=== PATIENT | female | born 1985 | race Caucasian/White ===

== ENCOUNTER 2021-09-25 01:29 | Inpatient (IN) | payer MEDICAID, OTHER ==
[~2021-09-25] VITALS: Ht 162.6 cm; Wt 72.3 kg
[2021-09-25 01:55] LABS: HEMATOCRIT 37.6 % (36.0-47.0); HEMOGLOBIN 13.3 g/dl (12.0-15.5); MEAN CORPUSCULAR HGB CONC 35.4 g/dl (32.0-36.5); MEAN CORPUSCULAR VOLUME 84.9 fl (80.0-96.0); PLATELET COUNT, AUTOMATED 378 10^3/uL (150-450); RED BLOOD COUNT 4.43 10^6/uL (4.00-5.40); WHITE BLOOD COUNT 9.7 10^3/uL (4.0-10.0)
[2021-09-25 02:25] LABS: HCG, SERUM QUALITATIVE NEGATIVE (NEGATIVE)
[2021-09-25 02:28] LABS: AMPHETAMINES LEVEL URINE NEGATIVE (NEGATIVE); BARBITURATES URINE NEGATIVE (NEGATIVE); BENZODIAZEPINES URINE POSITIVE (NEGATIVE); CANNABINOIDS URINE POSITIVE (NEGATIVE); COCAINE METABOLITE URINE NEGATIVE (NEGATIVE); METHADONE URINE NEGATIVE (NEGATIVE); OPIATES URINE NEGATIVE (NEGATIVE); PHENCYCLIDINE URINE NEGATIVE (NEGATIVE)
[2021-09-25 02:33] LABS: ALBUMIN 4.2 GM/DL (3.2-5.2); ALT/SGPT 24 U/L (12-78); BILIRUBIN,DIRECT < 0.1 MG/DL (0.0-0.2); BILIRUBIN,TOTAL 0.2 MG/DL (0.2-1.0); BLOOD UREA NITROGEN 13 MG/DL (7-18); CALCIUM LEVEL 9.2 MG/DL (8.5-10.1); CARBON DIOXIDE LEVEL 22 MEQ/L (21-32); CHLORIDE LEVEL 108 MEQ/L (98-107); CREATININE FOR GFR 0.94 MG/DL (0.55-1.30); ETHYL ALCOHOL (ETHANOL) 0.063 % (0.000-0.010); GLOMERULAR FILTRATION RATE > 60.0 (>60); GLUCOSE, FASTING 83 MG/DL (70-100); POTASSIUM SERUM 3.7 MEQ/L (3.5-5.1); SALICYLATE LEVEL 6.1 MG/DL (5.0-30.0); SODIUM LEVEL 140 MEQ/L (136-145); TOTAL PROTEIN 8.1 GM/DL (6.4-8.2)
[2021-09-25 02:41] LABS: RSV AMPLIFICATION NEGATIVE (NEGATIVE)
[2021-09-25] MEDS ORDERED: ALPRAZolam 0.5 MG TAB PO ONE (04:10)
[2021-09-25] MEDS ORDERED: traZODone 50 MG TAB PO ONE (04:15)
[2021-09-25] MEDS ORDERED: GABA800T4 PO (06:25)
[2021-09-25] MEDS ORDERED: TRAZ-252 PO (06:25)
[2021-09-25] MEDS ORDERED: PRAZ2CAP PO (06:25)
[2021-09-25] MEDS ORDERED: CETI-24 PO (06:25)
[2021-09-25] MEDS ORDERED: ZOLO100T PO (06:25)
[2021-09-25] MEDS ORDERED: IBUP1TAB7 PO (06:25)
[2021-09-25] MEDS ORDERED: ATOR1TAB19 PO (06:25)
[2021-09-25] MEDS ORDERED: XANA0.5T PO (06:25)
[2021-09-25] MEDS ORDERED: TIZA10TA PO (06:25)
[2021-09-25] MEDS ORDERED: PANT-23 PO (06:25)
[2021-09-25] MEDS ORDERED: HOME MED LIST COMPLETE! XX SCH (06:30)
[2021-09-25 06:50] LABS: ACETAMINOPHEN LEVEL < 2.0 UG/ML (0.0-30.0)
[2021-09-25] MEDS: NICOTINE 21MG/24HR 1 EA TRANSDERMAL TD SCH (09:00)
[2021-09-25] MEDS: SERTRALINE 100 MG TAB PO SCH (09:00)
[2021-09-25] MEDS: FOLIC ACID 1 MG TAB PO SCH (09:00)
[2021-09-25] MEDS: MULTIVITAMINS/MINERALS THERAP 1 TAB PO SCH (09:00)
[2021-09-25] MEDS ORDERED: LORazepam 2 MG TAB PO PRN (14:35)
[2021-09-25] MEDS ORDERED: traZODone 50 MG TAB PO PRN ×2 (14:35)
[2021-09-25] MEDS ORDERED: MAALOX 30 ML SUSP *UDC PO PRN (14:35)
[2021-09-25] MEDS: GABAPENTIN 400MG CAP PO SCH ×2 (16:00→21:47)
[2021-09-25] MEDS: IBUPROFEN 400MG TAB PO PRN ×2 (16:55→17:00)
[2021-09-25] MEDS ORDERED: PANTOPRAZOLE 40MG TAB (PROTONIX) PO SCH (18:30)
[2021-09-25] MEDS: ATORVASTATIN 10 MG TAB PO SCH (21:47)
[2021-09-25] MEDS: CETIRIZINE (ZyrTEC) 10 MG TAB PO SCH (21:47)
[2021-09-25] MEDS: THIAMINE 100 MG TAB PO SCH (21:50)
[2021-09-25] MEDS: PRAZOSIN 1 MG CAP PO SCH (21:50)
[2021-09-26 01:04] VITALS: BP 140/77
[2021-09-26] MEDS: PANTOPRAZOLE 40MG TAB (PROTONIX) PO SCH ×2 (07:04→17:12)
[2021-09-26] MEDS: THIAMINE 100 MG TAB PO SCH ×2 (07:56→20:12)
[2021-09-26] MEDS: SERTRALINE 100 MG TAB PO SCH (07:56)
[2021-09-26] MEDS: MULTIVITAMINS/MINERALS THERAP 1 TAB PO SCH (07:56)
[2021-09-26] MEDS: NICOTINE 21MG/24HR 1 EA TRANSDERMAL TD SCH (07:56)
[2021-09-26] MEDS: tiZANidine 4 MG TAB PO PRN ×4 (07:57→21:43)
[2021-09-26] MEDS: GABAPENTIN 400MG CAP PO SCH ×3 (07:57→20:12)
[2021-09-26] MEDS: FOLIC ACID 1 MG TAB PO SCH (07:57)
[2021-09-26] MEDS: OLANZapine ORAL DISINTEGRATING TAB 5MG PO PRN ×4 (08:37→17:12)
[2021-09-26 08:57] VITALS: BP 108/70
[2021-09-26] MEDS: clonazePAM 0.5 MG TAB PO SCH ×2 (11:38→20:11)
[2021-09-26 17:00] VITALS: BP 132/65
[2021-09-26 18:06] VITALS: BP 132/65
[2021-09-26 19:37] LABS: GC DNA AMPLIFICATION NEGATIVE (NEGATIVE)
[2021-09-26] MEDS: FLUTICASONE PROP 0.05% NASAL SPRAY 16 GM (FLONASE) NARES SCH (20:11)
[2021-09-26] MEDS: PRAZOSIN 1 MG CAP PO SCH (20:11)
[2021-09-26] MEDS: ATORVASTATIN 10 MG TAB PO SCH (20:12)
[2021-09-26] MEDS: CETIRIZINE (ZyrTEC) 10 MG TAB PO SCH (20:12)
[2021-09-27 00:09] VITALS: BP 153/95
[2021-09-27 00:23] VITALS: BP 153/95
[2021-09-27] MEDS ORDERED: NORCO, ANEXSIA 5/325MG TABLET (HYDROcodone/ACETAMINOPHEN) PO ONE ×2 (01:00→23:00)
[2021-09-27] MEDS ORDERED: GI COCKTAIL 50ML BTL(HYOSCYAMINE/MAALOX/LIDOCAINE VISCOUS)(1:3:1) PO ONE (01:00)
[2021-09-27] MEDS: ONDANSETRON 4MG ORAL DISINTEGRATING TAB PO PRN (01:34)
[2021-09-27 06:00] VITALS: BP 124/81
[2021-09-27] MEDS: PANTOPRAZOLE 40MG TAB (PROTONIX) PO SCH ×2 (06:06→17:26)
[2021-09-27] MEDS: IBUPROFEN 400MG TAB PO PRN ×2 (06:27→19:35)
[2021-09-27] MEDS: tiZANidine 4 MG TAB PO PRN ×3 (06:27→20:54)
[2021-09-27 07:55] LABS: BASO # 0.1 10^3/uL (0.0-0.2); BASO % 1.4 % (0.0-1.0); EOS # 0.5 10^3/uL (0.0-0.5); EOS % 4.9 % (0.0-3.0); HEMATOCRIT 37.1 % (36.0-47.0); HEMOGLOBIN 12.7 g/dl (12.0-15.5); LYMPH # 3.9 10^3/uL (1.5-5.0); LYMPH % 37.8 % (24.0-44.0); MEAN CORPUSCULAR HEMOGLOBIN 29.2 pg (27.0-33.0); MEAN CORPUSCULAR HGB CONC 34.2 g/dl (32.0-36.5); MEAN CORPUSCULAR VOLUME 85.3 fl (80.0-96.0); MONO # 0.9 10^3/uL (0.0-0.8); MONO % 8.7 % (2.0-8.0); NEUTROPHILS # 4.8 10^3/uL (1.5-8.5); PLATELET COUNT, AUTOMATED 360 10^3/uL (150-450); RED BLOOD COUNT 4.35 10^6/uL (4.00-5.40); WHITE BLOOD COUNT 10.2 10^3/uL (4.0-10.0)
[2021-09-27] MEDS: GABAPENTIN 400MG CAP PO SCH ×3 (08:16→20:12)
[2021-09-27] MEDS: SERTRALINE 100 MG TAB PO SCH (08:16)
[2021-09-27] MEDS: FOLIC ACID 1 MG TAB PO SCH (08:16)
[2021-09-27] MEDS: MULTIVITAMINS/MINERALS THERAP 1 TAB PO SCH (08:17)
[2021-09-27] MEDS: NICOTINE 21MG/24HR 1 EA TRANSDERMAL TD SCH (08:17)
[2021-09-27] MEDS: THIAMINE 100 MG TAB PO SCH ×2 (08:17→20:12)
[2021-09-27] MEDS: LIDOCAINE 5% (LIDODERM) PATCH TD SCH (08:17)
[2021-09-27] MEDS: clonazePAM 0.5 MG TAB PO SCH ×2 (08:17→20:12)
[2021-09-27 08:19] LABS: ALBUMIN 4.1 GM/DL (3.2-5.2); ALT/SGPT 32 U/L (12-78); BILIRUBIN,TOTAL 0.2 MG/DL (0.2-1.0); BLOOD UREA NITROGEN 14 MG/DL (7-18); CALCIUM LEVEL 9.3 MG/DL (8.5-10.1); CARBON DIOXIDE LEVEL 26 MEQ/L (21-32); CHLORIDE LEVEL 107 MEQ/L (98-107); CREATININE FOR GFR 1.01 MG/DL (0.55-1.30); GLOMERULAR FILTRATION RATE > 60.0 (>60); GLUCOSE, FASTING 151 MG/DL (70-100); LIPASE 211 U/L (73-393); SODIUM LEVEL 140 MEQ/L (136-145); TOTAL PROTEIN 7.7 GM/DL (6.4-8.2)
[2021-09-27] MEDS: FLUTICASONE PROP 0.05% NASAL SPRAY 16 GM (FLONASE) NARES SCH ×2 (08:22→20:12)
[2021-09-27] MEDS: OLANZapine ORAL DISINTEGRATING TAB 5MG PO PRN ×2 (10:11→19:34)
[2021-09-27 16:13] VITALS: BP 132/80
[2021-09-27] MEDS: **NOTE PATIENT COMMENT** MISC XX SCH (16:32)
[2021-09-27] MEDS: CETIRIZINE (ZyrTEC) 10 MG TAB PO SCH (20:12)
[2021-09-27] MEDS: ATORVASTATIN 10 MG TAB PO SCH (20:12)
[2021-09-27] MEDS: PRAZOSIN 1 MG CAP PO SCH (20:13)
[2021-09-27] MEDS ORDERED: HYOSCYAMINE SULFATE 0.125 MG SUBL TABLET PO ONE (23:00)
[2021-09-28] MEDS: IBUPROFEN 400MG TAB PO PRN ×3 (03:32→14:53)
[2021-09-28] MEDS: PANTOPRAZOLE 40MG TAB (PROTONIX) PO SCH ×2 (05:53→16:57)
[2021-09-28] MEDS: OLANZapine ORAL DISINTEGRATING TAB 5MG PO PRN ×2 (05:54→15:54)
[2021-09-28 06:42] VITALS: BP 127/67
[2021-09-28] MEDS: FLUTICASONE PROP 0.05% NASAL SPRAY 16 GM (FLONASE) NARES SCH ×2 (07:52→20:06)
[2021-09-28] MEDS: clonazePAM 0.5 MG TAB PO SCH ×2 (07:53→20:07)
[2021-09-28] MEDS: tiZANidine 4 MG TAB PO PRN ×3 (07:53→19:49)
[2021-09-28] MEDS: THIAMINE 100 MG TAB PO SCH (07:53)
[2021-09-28] MEDS: SERTRALINE 100 MG TAB PO SCH (07:53)
[2021-09-28] MEDS: MULTIVITAMINS/MINERALS THERAP 1 TAB PO SCH (07:53)
[2021-09-28] MEDS: LIDOCAINE 5% (LIDODERM) PATCH TD SCH (07:54)
[2021-09-28] MEDS: NICOTINE 21MG/24HR 1 EA TRANSDERMAL TD SCH (07:54)
[2021-09-28] MEDS: GABAPENTIN 400MG CAP PO SCH ×3 (07:54→20:06)
[2021-09-28] MEDS: FOLIC ACID 1 MG TAB PO SCH (07:54)
[2021-09-28 08:15] VITALS: BP 127/67
[2021-09-28] MEDS: ONDANSETRON 4MG ORAL DISINTEGRATING TAB PO PRN ×2 (10:57→20:36)
[2021-09-28] MEDS: NORCO, ANEXSIA 5/325MG TABLET (HYDROcodone/ACETAMINOPHEN) PO PRN ×3 (10:58→23:01)
[2021-09-28] MEDS: PHENAZOPYRIDINE 100 MG TAB PO SCH ×2 (15:20→20:06)
[2021-09-28 16:30] VITALS: BP 137/84
[2021-09-28 18:27] VITALS: BP 137/84
[2021-09-28] MEDS: PRAZOSIN 1 MG CAP PO SCH (20:07)
[2021-09-28] MEDS: CETIRIZINE (ZyrTEC) 10 MG TAB PO SCH (20:07)
[2021-09-28] MEDS: ATORVASTATIN 10 MG TAB PO SCH (20:07)
[2021-09-28] MEDS: **NOTE PATIENT COMMENT** MISC XX SCH (20:08)
[2021-09-28] MEDS: TAMSULOSIN 0.4 MG CAP PO SCH (22:38)
[2021-09-28] MEDS ORDERED: oxyBUTYnin 5 MG TAB PO ONE (23:55)
[2021-09-28] MEDS ORDERED: KETOROLAC TROMETHAMINE 10 MG TAB PO ONE (23:55)
[2021-09-29 00:34] LABS: BILIRUBIN, URINE MANUAL OBSCURED (NEGATIVE); GLUCOSE, URINE (UA) MANUAL NEGATIVE (NEGATIVE); KETONE, URINE MANUAL NEGATIVE (NEGATIVE); UROBILINOGEN, URINE MANUAL OBSCURED mg/dl (NORMAL)
[2021-09-29 00:36] LABS: BACTERIA, URINE NONE SEEN; HYALINE CAST, URINE NONE SEEN /lpf (0-1); SQUAMOUS EPITHELIAL CELL URINE SMALL AMOUNT /hpf (SMALL AMT)
[2021-09-29] MEDS: tiZANidine 4 MG TAB PO PRN ×3 (02:52→18:18)
[2021-09-29] MEDS: OLANZapine ORAL DISINTEGRATING TAB 5MG PO PRN ×3 (02:55→20:22)
[2021-09-29 06:40] VITALS: BP 116/76
[2021-09-29] MEDS: PANTOPRAZOLE 40MG TAB (PROTONIX) PO SCH ×2 (06:42→16:32)
[2021-09-29] MEDS: NORCO, ANEXSIA 5/325MG TABLET (HYDROcodone/ACETAMINOPHEN) PO PRN (06:43)
[2021-09-29] MEDS: NICOTINE 21MG/24HR 1 EA TRANSDERMAL TD SCH (08:03)
[2021-09-29] MEDS: LIDOCAINE 5% (LIDODERM) PATCH TD SCH (08:03)
[2021-09-29] MEDS: clonazePAM 0.5 MG TAB PO SCH ×4 (08:04→20:23)
[2021-09-29] MEDS: PHENAZOPYRIDINE 100 MG TAB PO SCH ×3 (08:04→20:23)
[2021-09-29] MEDS: GABAPENTIN 400MG CAP PO SCH ×3 (08:04→20:22)
[2021-09-29] MEDS: FLUTICASONE PROP 0.05% NASAL SPRAY 16 GM (FLONASE) NARES SCH ×2 (08:04→20:21)
[2021-09-29] MEDS: SERTRALINE 100 MG TAB PO SCH (08:04)
[2021-09-29] MEDS: MULTIVITAMINS/MINERALS THERAP 1 TAB PO SCH (08:04)
[2021-09-29] MEDS: FOLIC ACID 1 MG TAB PO SCH (08:04)
[2021-09-29] MEDS: oxyCODONE 5MG TAB PO PRN ×3 (10:33→22:35)
[2021-09-29 11:02] LABS: HEPATITIS B SURFACE ANTIBODY POSITIVE (POSITIVE); HEPATITIS B SURFACE ANTIGEN NEGATIVE (NEGATIVE); HEPATITIS C VIRUS ABY INDEX 0.2 INDEX (<0.8); HIV 1&2 SCREEN CENTAUR NEGATIVE (NEGATIVE)
[2021-09-29 13:22] LABS: BASO # 0.1 10^3/uL (0.0-0.2); BASO % 1.3 % (0.0-1.0); EOS # 0.4 10^3/uL (0.0-0.5); HEMATOCRIT 32.3 % (36.0-47.0); HEMOGLOBIN 11.4 g/dl (12.0-15.5); LYMPH # 2.9 10^3/uL (1.5-5.0); LYMPH % 33.3 % (24.0-44.0); MEAN CORPUSCULAR HEMOGLOBIN 29.9 pg (27.0-33.0); MEAN CORPUSCULAR HGB CONC 35.3 g/dl (32.0-36.5); MEAN CORPUSCULAR VOLUME 84.8 fl (80.0-96.0); MONO # 0.7 10^3/uL (0.0-0.8); MONO % 7.6 % (2.0-8.0); NEUTROPHILS # 4.6 10^3/uL (1.5-8.5); NEUTROPHILS % 52.5 % (36.0-66.0); PLATELET COUNT, AUTOMATED 302 10^3/uL (150-450); RED BLOOD COUNT 3.81 10^6/uL (4.00-5.40); WHITE BLOOD COUNT 8.7 10^3/uL (4.0-10.0)
[2021-09-29] MEDS: IBUPROFEN 400MG TAB PO PRN (14:34)
[2021-09-29 19:00] VITALS: BP 113/66
[2021-09-29] MEDS: ATORVASTATIN 10 MG TAB PO SCH (20:22)
[2021-09-29] MEDS: CETIRIZINE (ZyrTEC) 10 MG TAB PO SCH (20:22)
[2021-09-29] MEDS: PRAZOSIN 1 MG CAP PO SCH (20:23)
[2021-09-29] MEDS: TAMSULOSIN 0.4 MG CAP PO SCH (20:23)
[2021-09-29] MEDS: **NOTE PATIENT COMMENT** MISC XX SCH (20:23)
[2021-09-29] MEDS: ACETAMINOPHEN TAB 650MG DOSE (2X325MG) PO PRN (22:35)
[2021-09-29] MEDS: ONDANSETRON 4MG ORAL DISINTEGRATING TAB PO PRN (23:55)
[2021-09-30] MEDS: IBUPROFEN 400MG TAB PO PRN ×3 (02:45→15:33)
[2021-09-30] MEDS: PANTOPRAZOLE 40MG TAB (PROTONIX) PO SCH ×2 (04:35→17:06)
[2021-09-30] MEDS: oxyCODONE 5MG TAB PO PRN ×5 (04:35→22:38)
[2021-09-30] MEDS: ACETAMINOPHEN TAB 650MG DOSE (2X325MG) PO PRN ×2 (04:36→10:43)
[2021-09-30] MEDS: OLANZapine ORAL DISINTEGRATING TAB 5MG PO PRN ×2 (04:38→17:08)
[2021-09-30 04:39] VITALS: BP 139/88
[2021-09-30] MEDS: SERTRALINE 100 MG TAB PO SCH (08:09)
[2021-09-30] MEDS: FOLIC ACID 1 MG TAB PO SCH (08:09)
[2021-09-30] MEDS: clonazePAM 0.5 MG TAB PO SCH ×3 (08:09→20:40)
[2021-09-30] MEDS: FLUTICASONE PROP 0.05% NASAL SPRAY 16 GM (FLONASE) NARES SCH ×2 (08:09→20:39)
[2021-09-30] MEDS: MULTIVITAMINS/MINERALS THERAP 1 TAB PO SCH (08:10)
[2021-09-30] MEDS: GABAPENTIN 400MG CAP PO SCH ×3 (08:10→20:39)
[2021-09-30] MEDS: NICOTINE 21MG/24HR 1 EA TRANSDERMAL TD SCH (08:11)
[2021-09-30] MEDS: LIDOCAINE 5% (LIDODERM) PATCH TD SCH (08:11)
[2021-09-30] MEDS: tiZANidine 4 MG TAB PO PRN ×3 (08:12→23:04)
[2021-09-30] MEDS: PHENAZOPYRIDINE 100 MG TAB PO SCH (11:14)
[2021-09-30 13:43] VITALS: BP 139/88
[2021-09-30 17:50] VITALS: BP 113/61
[2021-09-30] MEDS: **NOTE PATIENT COMMENT** MISC XX SCH (20:34)
[2021-09-30] MEDS: PRAZOSIN 1 MG CAP PO SCH (20:39)
[2021-09-30] MEDS: ATORVASTATIN 10 MG TAB PO SCH (20:40)
[2021-09-30] MEDS: CETIRIZINE (ZyrTEC) 10 MG TAB PO SCH (20:40)
[2021-09-30] MEDS: ONDANSETRON 4MG ORAL DISINTEGRATING TAB PO PRN (22:38)
[2021-09-30] MEDS: MOM 30ML SUSPENSION UDC PO PRN (23:03)
[2021-10-01] MEDS: PANTOPRAZOLE 40MG TAB (PROTONIX) PO SCH ×2 (05:58→17:10)
[2021-10-01] MEDS: tiZANidine 4 MG TAB PO PRN ×2 (06:12→20:34)
[2021-10-01] MEDS: oxyCODONE 5MG TAB PO PRN ×4 (06:12→22:38)
[2021-10-01 06:59] VITALS: BP 99/55
[2021-10-01 07:45] VITALS: BP 99/57
[2021-10-01] MEDS: FLUTICASONE PROP 0.05% NASAL SPRAY 16 GM (FLONASE) NARES SCH ×2 (08:30→20:29)
[2021-10-01] MEDS: LIDOCAINE 5% (LIDODERM) PATCH TD SCH (08:30)
[2021-10-01] MEDS: NICOTINE 21MG/24HR 1 EA TRANSDERMAL TD SCH (08:30)
[2021-10-01] MEDS: clonazePAM 0.5 MG TAB PO SCH ×3 (08:30→20:30)
[2021-10-01] MEDS: FOLIC ACID 1 MG TAB PO SCH (08:31)
[2021-10-01] MEDS: MULTIVITAMINS/MINERALS THERAP 1 TAB PO SCH (08:31)
[2021-10-01] MEDS: GABAPENTIN 400MG CAP PO SCH ×3 (08:32→20:30)
[2021-10-01] MEDS: SERTRALINE 100 MG TAB PO SCH (08:32)
[2021-10-01] MEDS: IBUPROFEN 400MG TAB PO PRN ×2 (08:32→20:32)
[2021-10-01] MEDS ORDERED: OXYC-517 PO (10:54)
[2021-10-01] MEDS: DOCUSATE SODIUM 100MG CAPSULE PO SCH ×2 (14:04→20:30)
[2021-10-01 18:47] VITALS: BP 147/68
[2021-10-01 20:30] VITALS: BP 145/86
[2021-10-01] MEDS: PRAZOSIN 1 MG CAP PO SCH (20:30)
[2021-10-01] MEDS: CETIRIZINE (ZyrTEC) 10 MG TAB PO SCH (20:30)
[2021-10-01] MEDS: ATORVASTATIN 10 MG TAB PO SCH (20:30)
[2021-10-01] MEDS: **NOTE PATIENT COMMENT** MISC XX SCH (20:31)
[2021-10-01] MEDS: OLANZapine ORAL DISINTEGRATING TAB 5MG PO PRN (22:40)
[2021-10-01] MEDS: MOM 30ML SUSPENSION UDC PO PRN (23:12)
[2021-10-02] MEDS: tiZANidine 4 MG TAB PO PRN (04:41)
[2021-10-02] MEDS: PANTOPRAZOLE 40MG TAB (PROTONIX) PO SCH (05:51)
[2021-10-02] MEDS: OLANZapine ORAL DISINTEGRATING TAB 5MG PO PRN (06:00)
[2021-10-02] MEDS: oxyCODONE 5MG TAB PO PRN (06:23)
[2021-10-02 07:02] VITALS: BP 101/58
[2021-10-02] MEDS: NICOTINE 21MG/24HR 1 EA TRANSDERMAL TD SCH (08:05)
[2021-10-02] MEDS: LIDOCAINE 5% (LIDODERM) PATCH TD SCH (08:05)
[2021-10-02] MEDS: FLUTICASONE PROP 0.05% NASAL SPRAY 16 GM (FLONASE) NARES SCH (08:06)
[2021-10-02] MEDS: FOLIC ACID 1 MG TAB PO SCH (08:07)
[2021-10-02] MEDS: GABAPENTIN 400MG CAP PO SCH (08:07)
[2021-10-02] MEDS: SERTRALINE 100 MG TAB PO SCH (08:07)
[2021-10-02] MEDS: MULTIVITAMINS/MINERALS THERAP 1 TAB PO SCH (08:07)
[2021-10-02] MEDS: clonazePAM 0.5 MG TAB PO SCH (08:08)
[2021-10-02] MEDS: DOCUSATE SODIUM 100MG CAPSULE PO SCH (08:08)
[2021-10-02] MEDS ORDERED: PANT40TA29 PO (10:17)
[2021-10-02] MEDS ORDERED: CETI10TA PO (10:17)
[2021-10-02] MEDS ORDERED: TIZA10TA PO (10:17)
[2021-10-02] MEDS ORDERED: FOLI1TAB11 PO (10:17)
[2021-10-02] MEDS ORDERED: VITMTA PO (10:17)
[2021-10-02] MEDS ORDERED: ZOLO100T PO (10:17)
[2021-10-02] MEDS ORDERED: COLA100C5 PO (10:17)
[2021-10-02] MEDS ORDERED: MINI1CAP PO (10:17)
[2021-10-02] MEDS ORDERED: ATOR1TAB19 PO (10:17)
[2021-10-02] MEDS ORDERED: CLON0.5T2 PO ×2 (10:17→10:20)
[2021-10-02] MEDS ORDERED: GABA800T4 PO (10:17)
[2021-10-03] MEDS ORDERED: CLON0.5T2 PO (02:32)
[2021-10-03] MEDS ORDERED: CETI-24 PO (02:32)
[2021-10-03] MEDS ORDERED: FOLI1TAB11 PO (02:32)
[2021-10-03] MEDS ORDERED: ATOR1TAB19 PO (02:32)
[2021-10-03] MEDS ORDERED: DOCU100C16 PO (02:32)
[2021-10-03] MEDS ORDERED: VITMTA PO (02:32)
[2021-10-03] MEDS ORDERED: PRAZ1CAP PO (02:32)
[2021-10-03] MEDS ORDERED: PANT40TA29 PO (02:32)
[2021-10-03] MEDS ORDERED: OXYC-517 PO (02:32)
[2021-10-03] MEDS ORDERED: GABA800T4 PO (02:32)
[2021-10-03] MEDS ORDERED: TIZA10TA PO (02:32)
[2021-10-03] MEDS ORDERED: ZOLO100T PO (02:32)
== END 2021-10-02 13:09 | disposition home or self-care (01) | DRG 754 ==
LOC: M ED 01:29 → M ED INP 14:32 → M PSY 09-26 00:48
PROVIDERS: ADMIT Psychiatry & Neurology Psychiatry; ATTEND Psychiatry & Neurology Psychiatry
DX: F32.A Depression, unspecified (principal); L89.151 Pressure ulcer of sacral region, stage 1; N13.30 Unspecified hydronephrosis; Z91.19 Patient's noncompliance with other medical treatment and regimen; R45.851 Suicidal ideations; F43.10 Post-traumatic stress disorder, unspecified; F12.90 Cannabis use, unspecified, uncomplicated; F60.3 Borderline personality disorder; F41.9 Anxiety disorder, unspecified; Z88.8 Allergy status to other drugs, medicaments and biological substances; Z79.899 Other long term (current) drug therapy; M79.7 Fibromyalgia; K21.9 Gastro-esophageal reflux disease without esophagitis; E78.00 Pure hypercholesterolemia, unspecified; R25.1 Tremor, unspecified; Z85.41 Personal history of malignant neoplasm of cervix uteri; M54.30 Sciatica, unspecified side; M19.90 Unspecified osteoarthritis, unspecified site; F17.200 Nicotine dependence, unspecified, uncomplicated; F32.9 Major depressive disorder, single episode, unspecified

== ENCOUNTER 2021-10-03 00:11 | Inpatient (IN) | payer OTHER ==
[~2021-10-03] VITALS: Ht 162.6 cm; Wt 89.2 kg
[~2021-10-03 00:11] MED LIST: ATOR1TAB19 PO; CETI-24 PO; CETI10TA PO; CLON0.5T2 PO; COLA100C5 PO; FOLI1TAB11 PO; GABA800T4 PO; IBUP1TAB7 PO; MINI1CAP PO; OXYC-517 PO; PANT-23 PO; PANT40TA29 PO; PRAZ2CAP PO; TIZA10TA PO; TRAZ-252 PO; VITMTA PO; XANA0.5T PO; ZOLO100T PO
[2021-10-03 01:35] VITALS: BP 102/70
[2021-10-03] MEDS ORDERED: GLUCOSE 4GM CHEW TABLET PO PRN (02:05)
[2021-10-03] MEDS ORDERED: GLUCAGON INJ 1MG VIAL SC PRN (02:05)
[2021-10-03] MEDS ORDERED: DEXTROSE 50% 50 ML SYRINGE IV PRN (02:05)
[2021-10-03] MEDS: MORPHINE 4 MG/ML 1ML VIAL/SYRINGE IV PRN ×8 (02:16→23:24)
[2021-10-03] MEDS ORDERED: PANT40TA29 PO (02:32)
[2021-10-03] MEDS ORDERED: ATOR1TAB19 PO (02:32)
[2021-10-03] MEDS ORDERED: FOLI1TAB11 PO (02:32)
[2021-10-03] MEDS ORDERED: DOCU100C16 PO (02:32)
[2021-10-03] MEDS ORDERED: TIZA10TA PO (02:32)
[2021-10-03] MEDS ORDERED: GABA800T4 PO (02:32)
[2021-10-03] MEDS ORDERED: OXYC-517 PO (02:32)
[2021-10-03] MEDS ORDERED: ZOLO100T PO (02:32)
[2021-10-03] MEDS ORDERED: VITMTA PO (02:32)
[2021-10-03] MEDS ORDERED: CLON0.5T2 PO (02:32)
[2021-10-03] MEDS ORDERED: PRAZ1CAP PO (02:32)
[2021-10-03] MEDS ORDERED: CETI-24 PO (02:32)
[2021-10-03] MEDS ORDERED: HOME MED LIST COMPLETE! XX SCH (02:35)
[2021-10-03] MEDS: NS 1,000 ML IV SCH ×3 (02:44→17:30)
[2021-10-03] MEDS: PIPERACILLIN/TAZOBACTAM SOD 3.375 GM in D5W MINI-BAG PLUS 50 ML IV SCH ×4 (04:17→22:36)
[2021-10-03 05:50] LABS: BASO # 0.1 10^3/uL (0.0-0.2); EOS # 0.4 10^3/uL (0.0-0.5); EOS % 4.6 % (0.0-3.0); HEMATOCRIT 29.1 % (36.0-47.0); HEMOGLOBIN 9.6 g/dl (12.0-15.5); LYMPH # 2.2 10^3/uL (1.5-5.0); LYMPH % 27.2 % (24.0-44.0); MEAN CORPUSCULAR HEMOGLOBIN 29.2 pg (27.0-33.0); MEAN CORPUSCULAR VOLUME 88.4 fl (80.0-96.0); MONO # 0.9 10^3/uL (0.0-0.8); MONO % 11.2 % (2.0-8.0); NEUTROPHILS # 4.5 10^3/uL (1.5-8.5); NEUTROPHILS % 55.5 % (36.0-66.0); PLATELET COUNT, AUTOMATED 281 10^3/uL (150-450); RED BLOOD COUNT 3.29 10^6/uL (4.00-5.40)
[2021-10-03 05:59] LABS: INR 0.98; PROTHROMBIN TIME 13.4 SECONDS (12.7-14.5)
[2021-10-03 06:00] VITALS: BP 105/70
[2021-10-03 06:00] LABS: PARTIAL THROMBOPLASTIN TIME 28.9 SECONDS (25.9-37.0)
[2021-10-03 06:17] LABS: ALBUMIN 2.9 GM/DL (3.2-5.2); ALT/SGPT 164 U/L (12-78); BILIRUBIN,TOTAL 0.6 MG/DL (0.2-1.0); BLOOD UREA NITROGEN 8 MG/DL (7-18); CALCIUM LEVEL 7.8 MG/DL (8.5-10.1); CARBON DIOXIDE LEVEL 28 MEQ/L (21-32); CHLORIDE LEVEL 109 MEQ/L (98-107); CREATININE FOR GFR 0.95 MG/DL (0.55-1.30); GLOMERULAR FILTRATION RATE > 60.0 (>60); GLUCOSE, FASTING 106 MG/DL (70-100); POTASSIUM SERUM 4.1 MEQ/L (3.5-5.1); SODIUM LEVEL 139 MEQ/L (136-145); TOTAL PROTEIN 5.6 GM/DL (6.4-8.2)
[2021-10-03] MEDS: KETOROLAC 30 MG/ML 1ML VIAL IV PRN ×2 (06:31→12:37)
[2021-10-03] MEDS: PANTOPRAZOLE 40MG VIAL IV SCH (08:32)
[2021-10-03 14:00] VITALS: BP 129/86
[2021-10-03 22:00] VITALS: BP 160/84
[2021-10-03] MEDS: CETIRIZINE (ZyrTEC) 10 MG TAB PO SCH (22:35)
[2021-10-03] MEDS: GABAPENTIN 400MG CAP PO SCH (22:35)
[2021-10-03] MEDS: clonazePAM 0.5 MG TAB PO SCH (22:35)
[2021-10-03] MEDS: ATORVASTATIN 10 MG TAB PO SCH (22:36)
[2021-10-03] MEDS: PRAZOSIN 1 MG CAP PO SCH (22:36)
[2021-10-03] MEDS: tiZANidine 4 MG TAB PO PRN (22:44)
[2021-10-03] MEDS ORDERED: COMBIVENT RESPIMAT 100-20MCG INHALER 4GM INH PRN (22:50)
[2021-10-03] MEDS ORDERED: BENZONATATE 100MG CAPSULE PO PRN (23:05)
[2021-10-03] MEDS ORDERED: diphenhydrAMINE 50MG/ML VIAL (J1200) IV ONE (23:05)
[2021-10-03] MEDS ORDERED: IPRATROPIUM 0.5MG/ALBUTEROL 2.5MG INH SOL UD 3ML (DUONEB) NEB PRN (23:05)
[2021-10-04] MEDS ORDERED: FUROSEMIDE 20MG/2ML VIAL (J1940) IV ONE (01:00)
[2021-10-04] MEDS: PIPERACILLIN/TAZOBACTAM SOD 3.375 GM in D5W MINI-BAG PLUS 50 ML IV SCH (03:39)
[2021-10-04] MEDS: MORPHINE 4 MG/ML 1ML VIAL/SYRINGE IV PRN ×2 (05:18→08:19)
[2021-10-04 06:00] VITALS: BP 124/83
[2021-10-04 06:18] LABS: HEMATOCRIT 27.6 % (36.0-47.0); HEMOGLOBIN 9.1 g/dl (12.0-15.5); MEAN CORPUSCULAR HEMOGLOBIN 29.7 pg (27.0-33.0); MEAN CORPUSCULAR VOLUME 90.2 fl (80.0-96.0); PLATELET COUNT, AUTOMATED 283 10^3/uL (150-450); RED BLOOD COUNT 3.06 10^6/uL (4.00-5.40); WHITE BLOOD COUNT 10.5 10^3/uL (4.0-10.0)
[2021-10-04 06:46] LABS: ALBUMIN 2.7 GM/DL (3.2-5.2); BILIRUBIN,TOTAL 0.7 MG/DL (0.2-1.0); CALCIUM LEVEL 7.8 MG/DL (8.5-10.1); CREATININE FOR GFR 1.1 MG/DL (0.55-1.30); GLOMERULAR FILTRATION RATE 59.2 (>60); MAGNESIUM LEVEL 1.6 MG/DL (1.8-2.4); POTASSIUM SERUM 4.1 MEQ/L (3.5-5.1); TOTAL PROTEIN 5.6 GM/DL (6.4-8.2)
[2021-10-04] MEDS: PANTOPRAZOLE 40MG VIAL IV SCH (08:18)
[2021-10-04] MEDS: clonazePAM 0.5 MG TAB PO SCH ×2 (08:20→21:25)
[2021-10-04] MEDS: SERTRALINE 100 MG TAB PO SCH (08:20)
[2021-10-04] MEDS: tiZANidine 4 MG TAB PO PRN ×2 (08:20→21:23)
[2021-10-04] MEDS: GABAPENTIN 400MG CAP PO SCH ×3 (08:21→21:23)
[2021-10-04] MEDS: DOCUSATE SODIUM 100MG CAPSULE PO SCH ×2 (09:00→11:52)
[2021-10-04] MEDS: MULTIVITAMINS/MINERALS THERAP 1 TAB PO SCH (10:02)
[2021-10-04] MEDS: FOLIC ACID 1 MG TAB PO SCH (10:02)
[2021-10-04] MEDS: ONDANSETRON 4MG 2ML VIAL IV PRN (10:03)
[2021-10-04] MEDS: SUCRALFATE 1 GM TAB PO SCH ×3 (11:52→21:22)
[2021-10-04] MEDS: oxyCODONE 5MG TAB PO PRN ×2 (11:52→17:51)
[2021-10-04] MEDS: SENNA 8.6 MG TAB (SENOKOT) PO SCH ×2 (11:52→21:22)
[2021-10-04 14:00] VITALS: BP 116/96
[2021-10-04] MEDS: ATORVASTATIN 10 MG TAB PO SCH (21:22)
[2021-10-04] MEDS: CETIRIZINE (ZyrTEC) 10 MG TAB PO SCH (21:23)
[2021-10-04] MEDS: PANTOPRAZOLE 40MG TAB (PROTONIX) PO SCH (21:23)
[2021-10-04] MEDS: PRAZOSIN 1 MG CAP PO SCH (21:25)
[2021-10-04 22:00] VITALS: BP 152/85
[2021-10-04] MEDS ORDERED: NICOTINE 21MG/24HR 1 EA TRANSDERMAL TD PRN (22:50)
[2021-10-04] MEDS: KETOROLAC 30 MG/ML 1ML VIAL IV PRN (23:09)
[2021-10-05 01:40] VITALS: BP 92/58
[2021-10-05] MEDS: oxyCODONE 5MG TAB PO PRN ×3 (02:43→22:35)
[2021-10-05 06:00] VITALS: BP 100/64
[2021-10-05 06:35] LABS: HEMATOCRIT 27.8 % (36.0-47.0); HEMOGLOBIN 8.9 g/dl (12.0-15.5); MEAN CORPUSCULAR VOLUME 90.6 fl (80.0-96.0); PLATELET COUNT, AUTOMATED 265 10^3/uL (150-450); RED BLOOD COUNT 3.07 10^6/uL (4.00-5.40); WHITE BLOOD COUNT 8.7 10^3/uL (4.0-10.0)
[2021-10-05 07:03] LABS: ALBUMIN 2.8 GM/DL (3.2-5.2); ALT/SGPT 81 U/L (12-78); BILIRUBIN,TOTAL 0.4 MG/DL (0.2-1.0); BLOOD UREA NITROGEN 6 MG/DL (7-18); CALCIUM LEVEL 8.4 MG/DL (8.5-10.1); CARBON DIOXIDE LEVEL 26 MEQ/L (21-32); CHLORIDE LEVEL 108 MEQ/L (98-107); CREATININE FOR GFR 0.94 MG/DL (0.55-1.30); GLOMERULAR FILTRATION RATE > 60.0 (>60); GLUCOSE, FASTING 94 MG/DL (70-100); POTASSIUM SERUM 4.2 MEQ/L (3.5-5.1); SODIUM LEVEL 142 MEQ/L (136-145); TOTAL PROTEIN 5.9 GM/DL (6.4-8.2)
[2021-10-05] MEDS: SUCRALFATE 1 GM TAB PO SCH ×4 (07:30→20:56)
[2021-10-05] MEDS: FOLIC ACID 1 MG TAB PO SCH (08:48)
[2021-10-05] MEDS: clonazePAM 0.5 MG TAB PO SCH ×2 (08:48→12:21)
[2021-10-05] MEDS: DOCUSATE SODIUM 100MG CAPSULE PO SCH ×2 (08:48→20:57)
[2021-10-05] MEDS: GABAPENTIN 400MG CAP PO SCH ×3 (08:48→20:57)
[2021-10-05] MEDS: SENNA 8.6 MG TAB (SENOKOT) PO SCH ×2 (08:49→20:59)
[2021-10-05] MEDS: PANTOPRAZOLE 40MG TAB (PROTONIX) PO SCH ×3 (08:49→20:56)
[2021-10-05] MEDS: SERTRALINE 100 MG TAB PO SCH ×2 (08:49→12:22)
[2021-10-05] MEDS: MULTIVITAMINS/MINERALS THERAP 1 TAB PO SCH (08:49)
[2021-10-05] MEDS ORDERED: LIDOCAINE 5% (LIDODERM) PATCH TD SCH (09:00)
[2021-10-05] MEDS: tiZANidine 4 MG TAB PO PRN (12:21)
[2021-10-05] MEDS ORDERED: ANEXSIA, NORCO 7.5MG/325MG TABLET(HYDROCODONE/APAP) PO PRN (13:20)
[2021-10-05 14:00] VITALS: BP 106/60
[2021-10-05] MEDS: NYSTATIN 500,000 U/5 ML SUSP UDC SS SCH ×3 (14:07→20:56)
[2021-10-05] MEDS ORDERED: tiZANidine 4 MG TAB PO PRN (14:25)
[2021-10-05] MEDS: DICLOFENAC EPOLAMINE 1.3 % PATCH TOP SCH ×2 (15:08→20:57)
[2021-10-05] MEDS: CIPROFLOXACIN 500MG TABLET PO SCH (17:17)
[2021-10-05 20:21] VITALS: BP 126/83
[2021-10-05] MEDS: clonazePAM 0.5 MG TAB PO PRN (20:57)
[2021-10-05] MEDS: CETIRIZINE (ZyrTEC) 10 MG TAB PO SCH (20:57)
[2021-10-05] MEDS: PRAZOSIN 1 MG CAP PO SCH (20:58)
[2021-10-05] MEDS: ATORVASTATIN 10 MG TAB PO SCH (20:59)
[2021-10-05] MEDS ORDERED: **NOTE PATIENT COMMENT** MISC XX SCH (21:00)
[2021-10-05] MEDS: SIMETHICONE 80MG CHEW TAB PO PRN (22:35)
[2021-10-05] MEDS: DICYCLOMINE 10 MG CAP PO PRN (22:35)
[2021-10-06] MEDS: oxyCODONE 5MG TAB PO PRN ×5 (02:34→20:44)
[2021-10-06 05:24] VITALS: BP 160/93
[2021-10-06 05:45] VITALS: BP 150/85
[2021-10-06 06:00] LABS: HEMATOCRIT 28.1 % (36.0-47.0); HEMOGLOBIN 9.5 g/dl (12.0-15.5); MEAN CORPUSCULAR HEMOGLOBIN 29.7 pg (27.0-33.0); MEAN CORPUSCULAR HGB CONC 33.8 g/dl (32.0-36.5); MEAN CORPUSCULAR VOLUME 87.8 fl (80.0-96.0); PLATELET COUNT, AUTOMATED 308 10^3/uL (150-450); WHITE BLOOD COUNT 9.4 10^3/uL (4.0-10.0)
[2021-10-06] MEDS: CIPROFLOXACIN 500MG TABLET PO SCH (06:12)
[2021-10-06 06:24] LABS: ALT/SGPT 68 U/L (12-78); BILIRUBIN,TOTAL 0.6 MG/DL (0.2-1.0); BLOOD UREA NITROGEN 6 MG/DL (7-18); CALCIUM LEVEL 8.9 MG/DL (8.5-10.1); CARBON DIOXIDE LEVEL 28 MEQ/L (21-32); CHLORIDE LEVEL 108 MEQ/L (98-107); CREATININE FOR GFR 1.01 MG/DL (0.55-1.30); GLOMERULAR FILTRATION RATE > 60.0 (>60); GLUCOSE, FASTING 95 MG/DL (70-100); MAGNESIUM LEVEL 1.8 MG/DL (1.8-2.4); POTASSIUM SERUM 4.4 MEQ/L (3.5-5.1); SODIUM LEVEL 141 MEQ/L (136-145); TOTAL PROTEIN 6.2 GM/DL (6.4-8.2)
[2021-10-06] MEDS: SUCRALFATE 1 GM TAB PO SCH ×4 (07:30→20:44)
[2021-10-06] MEDS: SENNA 8.6 MG TAB (SENOKOT) PO SCH ×2 (08:11→20:45)
[2021-10-06] MEDS: NYSTATIN 500,000 U/5 ML SUSP UDC SS SCH ×4 (08:11→20:45)
[2021-10-06] MEDS: PANTOPRAZOLE 40MG TAB (PROTONIX) PO SCH ×2 (08:12→20:44)
[2021-10-06] MEDS: GABAPENTIN 400MG CAP PO SCH ×3 (08:12→20:41)
[2021-10-06] MEDS: DICLOFENAC EPOLAMINE 1.3 % PATCH TOP SCH ×2 (08:12→20:46)
[2021-10-06] MEDS: MULTIVITAMINS/MINERALS THERAP 1 TAB PO SCH (08:12)
[2021-10-06] MEDS: SERTRALINE 100 MG TAB PO SCH (08:12)
[2021-10-06] MEDS: FOLIC ACID 1 MG TAB PO SCH (08:12)
[2021-10-06] MEDS: clonazePAM 0.5 MG TAB PO PRN ×2 (08:18→16:48)
[2021-10-06] MEDS ORDERED: E-Z-PAQUE 96% w/w SUSP 176GM BTL As Ordered ONE (11:03)
[2021-10-06] MEDS ORDERED: E-Z-GAS II EFFERVESCENT PACKET (SODIUM BICARB./CITRIC ACID/SIMETHICONE) As Ordered ONE (11:03)
[2021-10-06] MEDS ORDERED: E-Z-HD 98% w/w 340GM SUSP BTL As Ordered ONE (11:03)
[2021-10-06 13:58] VITALS: BP 167/96
[2021-10-06] MEDS: ONDANSETRON 4MG 2ML VIAL IV PRN (18:48)
[2021-10-06] MEDS: PRAZOSIN 1 MG CAP PO SCH (20:43)
[2021-10-06] MEDS: ATORVASTATIN 10 MG TAB PO SCH (20:44)
[2021-10-06] MEDS: CETIRIZINE (ZyrTEC) 10 MG TAB PO SCH (20:44)
[2021-10-06] MEDS: HEPARIN SOD (PORCINE) 5000UNITS/ML 1ML VIAL/SYRINGE SQ SCH (20:46)
[2021-10-06 21:00] VITALS: BP 166/99
[2021-10-07] MEDS ORDERED: hydrOXYzine 50 MG TAB PO ONE
[2021-10-07] MEDS ORDERED: PERCOCET 5MG/325MG TAB PO ONE
[2021-10-07] MEDS: clonazePAM 0.5 MG TAB PO PRN ×2 (00:50→08:07)
[2021-10-07] MEDS ORDERED: MORPHINE 2 MG/ML 1ML VIAL IV ONE ×3 (02:00→20:55)
[2021-10-07 02:02] LABS: HEMATOCRIT 29.1 % (36.0-47.0); HEMOGLOBIN 9.9 g/dl (12.0-15.5); MEAN CORPUSCULAR HEMOGLOBIN 29.6 pg (27.0-33.0); MEAN CORPUSCULAR VOLUME 86.9 fl (80.0-96.0); PLATELET COUNT, AUTOMATED 315 10^3/uL (150-450); RED BLOOD COUNT 3.35 10^6/uL (4.00-5.40); WHITE BLOOD COUNT 10.3 10^3/uL (4.0-10.0)
[2021-10-07 02:26] LABS: ALBUMIN 3.1 GM/DL (3.2-5.2); ALT/SGPT 61 U/L (12-78); AMYLASE 23 U/L (25-115); BILIRUBIN,TOTAL 0.4 MG/DL (0.2-1.0); BLOOD UREA NITROGEN 4 MG/DL (7-18); CALCIUM LEVEL 9.3 MG/DL (8.5-10.1); CARBON DIOXIDE LEVEL 28 MEQ/L (21-32); CHLORIDE LEVEL 107 MEQ/L (98-107); CREATININE FOR GFR 1.01 MG/DL (0.55-1.30); GLOMERULAR FILTRATION RATE > 60.0 (>60); GLUCOSE, FASTING 98 MG/DL (70-100); LIPASE 85 U/L (73-393); MAGNESIUM LEVEL 1.7 MG/DL (1.8-2.4); POTASSIUM SERUM 3.8 MEQ/L (3.5-5.1); SODIUM LEVEL 139 MEQ/L (136-145); TOTAL PROTEIN 7.3 GM/DL (6.4-8.2)
[2021-10-07] MEDS ORDERED: PREPARATION H OINTMENT (HEMORRHOID) PR PRN (02:35)
[2021-10-07] MEDS ORDERED: NS 1,000 ML IV SCH (02:40)
[2021-10-07] MEDS ORDERED: MAGNESIUM OXIDE 400MG TAB (MAG-OX) PO ONE (03:00)
[2021-10-07] MEDS: SIMETHICONE 80MG CHEW TAB PO PRN (03:01)
[2021-10-07] MEDS: HEPARIN SOD (PORCINE) 5000UNITS/ML 1ML VIAL/SYRINGE SQ SCH ×3 (05:58→21:53)
[2021-10-07] MEDS: oxyCODONE 5MG TAB PO PRN ×2 (05:59→13:51)
[2021-10-07 06:00] VITALS: BP 148/80
[2021-10-07 07:13] LABS: HEMOGLOBIN 9.4 g/dl (12.0-15.5); MEAN CORPUSCULAR HEMOGLOBIN 29.7 pg (27.0-33.0); MEAN CORPUSCULAR HGB CONC 33.6 g/dl (32.0-36.5); MEAN CORPUSCULAR VOLUME 88.6 fl (80.0-96.0); PLATELET COUNT, AUTOMATED 331 10^3/uL (150-450); RED BLOOD COUNT 3.16 10^6/uL (4.00-5.40); WHITE BLOOD COUNT 9.3 10^3/uL (4.0-10.0)
[2021-10-07 07:24] LABS: ALT/SGPT 52 U/L (12-78); BILIRUBIN,TOTAL 0.4 MG/DL (0.2-1.0); BLOOD UREA NITROGEN 4 MG/DL (7-18); CALCIUM LEVEL 8.6 MG/DL (8.5-10.1); CARBON DIOXIDE LEVEL 30 MEQ/L (21-32); CHLORIDE LEVEL 106 MEQ/L (98-107); GLOMERULAR FILTRATION RATE > 60.0 (>60); GLUCOSE, FASTING 94 MG/DL (70-100); MAGNESIUM LEVEL 1.8 MG/DL (1.8-2.4); PHOSPHORUS LEVEL 6.9 MG/DL (2.5-4.9); SODIUM LEVEL 141 MEQ/L (136-145); TOTAL PROTEIN 6.2 GM/DL (6.4-8.2)
[2021-10-07] MEDS: FOLIC ACID 1 MG TAB PO SCH (07:59)
[2021-10-07] MEDS: SUCRALFATE 1 GM TAB PO SCH ×4 (07:59→21:51)
[2021-10-07] MEDS: GABAPENTIN 400MG CAP PO SCH ×3 (08:00→21:51)
[2021-10-07] MEDS: MULTIVITAMINS/MINERALS THERAP 1 TAB PO SCH (08:00)
[2021-10-07] MEDS: SERTRALINE 100 MG TAB PO SCH (08:00)
[2021-10-07] MEDS: SENNA 8.6 MG TAB (SENOKOT) PO SCH ×2 (08:00→21:51)
[2021-10-07] MEDS: NYSTATIN 500,000 U/5 ML SUSP UDC SS SCH ×4 (08:01→21:51)
[2021-10-07] MEDS: PANTOPRAZOLE 40MG TAB (PROTONIX) PO SCH ×2 (08:01→21:52)
[2021-10-07] MEDS: DICLOFENAC EPOLAMINE 1.3 % PATCH TOP SCH ×2 (08:02→21:52)
[2021-10-07 14:36] VITALS: BP 158/84
[2021-10-07] MEDS: ONDANSETRON 4MG 2ML VIAL IV PRN (15:05)
[2021-10-07] MEDS ORDERED: KETOROLAC 30 MG/ML 1ML VIAL IV PRN (19:00)
[2021-10-07] MEDS: MORPHINE 2 MG/ML 1ML VIAL IV PRN ×2 (19:07→23:33)
[2021-10-07] MEDS ORDERED: ISOVUE-370 76% 100ML VIAL As Ordered ONE (20:57)
[2021-10-07] MEDS: ATORVASTATIN 10 MG TAB PO SCH (21:51)
[2021-10-07] MEDS: RAMELTEON 8 MG TAB (ROZEREM) PO PRN (21:52)
[2021-10-07] MEDS: CETIRIZINE (ZyrTEC) 10 MG TAB PO SCH (21:52)
[2021-10-07] MEDS: PRAZOSIN 1 MG CAP PO SCH (21:52)
[2021-10-07 22:00] VITALS: BP 172/110
[2021-10-07] MEDS ORDERED: FUROSEMIDE 20MG/2ML VIAL (J1940) IV ONE (22:35)
[2021-10-08] MEDS: clonazePAM 0.5 MG TAB PO PRN ×2 (02:04→08:42)
[2021-10-08] MEDS: oxyCODONE 5MG TAB PO PRN ×2 (02:05→16:47)
[2021-10-08] MEDS: MORPHINE 2 MG/ML 1ML VIAL IV PRN ×5 (04:29→23:02)
[2021-10-08] MEDS: ONDANSETRON 4MG 2ML VIAL IV PRN ×2 (04:49→14:22)
[2021-10-08] MEDS: HEPARIN SOD (PORCINE) 5000UNITS/ML 1ML VIAL/SYRINGE SQ SCH ×3 (05:05→20:24)
[2021-10-08 05:59] LABS: HEMATOCRIT 29.3 % (36.0-47.0); MEAN CORPUSCULAR HEMOGLOBIN 29.6 pg (27.0-33.0); MEAN CORPUSCULAR HGB CONC 34.1 g/dl (32.0-36.5); MEAN CORPUSCULAR VOLUME 86.7 fl (80.0-96.0); PLATELET COUNT, AUTOMATED 337 10^3/uL (150-450); RED BLOOD COUNT 3.38 10^6/uL (4.00-5.40); WHITE BLOOD COUNT 7.4 10^3/uL (4.0-10.0)
[2021-10-08 06:00] VITALS: BP 120/80
[2021-10-08 06:26] LABS: ALBUMIN 3.1 GM/DL (3.2-5.2); BILIRUBIN,TOTAL 0.5 MG/DL (0.2-1.0); CALCIUM LEVEL 9.1 MG/DL (8.5-10.1); CREATININE FOR GFR 1.13 MG/DL (0.55-1.30); GLOMERULAR FILTRATION RATE 57.4 (>60); MAGNESIUM LEVEL 1.9 MG/DL (1.8-2.4); PHOSPHORUS LEVEL 6.7 MG/DL (2.5-4.9); POTASSIUM SERUM 4.1 MEQ/L (3.5-5.1); TOTAL PROTEIN 6.9 GM/DL (6.4-8.2)
[2021-10-08] MEDS: SUCRALFATE 1 GM TAB PO SCH ×4 (07:45→20:22)
[2021-10-08] MEDS: GABAPENTIN 400MG CAP PO SCH ×3 (07:45→20:21)
[2021-10-08] MEDS: MULTIVITAMINS/MINERALS THERAP 1 TAB PO SCH (07:45)
[2021-10-08] MEDS: SERTRALINE 100 MG TAB PO SCH (07:46)
[2021-10-08] MEDS: FOLIC ACID 1 MG TAB PO SCH (07:46)
[2021-10-08] MEDS: SENNA 8.6 MG TAB (SENOKOT) PO SCH ×2 (07:47→20:24)
[2021-10-08] MEDS: PANTOPRAZOLE 40MG TAB (PROTONIX) PO SCH ×2 (07:47→20:24)
[2021-10-08] MEDS: NYSTATIN 500,000 U/5 ML SUSP UDC SS SCH ×4 (07:47→20:24)
[2021-10-08] MEDS: DICLOFENAC EPOLAMINE 1.3 % PATCH TOP SCH ×2 (07:47→20:24)
[2021-10-08 08:31] LABS: ERYTHROCYTE SEDIMENTATION RATE 67 mm/hr (0-20)
[2021-10-08 08:44] LABS: BASO # 0.1 10^3/uL (0.0-0.2); BASO % 1.3 % (0.0-1.0); EOS # 0.4 10^3/uL (0.0-0.5); EOS % 5.3 % (0.0-3.0); LYMPH # 1.9 10^3/uL (1.5-5.0); LYMPH % 27.8 % (24.0-44.0); MONO # 0.7 10^3/uL (0.0-0.8); MONO % 9.7 % (2.0-8.0); NEUTROPHILS # 3.9 10^3/uL (1.5-8.5); NEUTROPHILS % 55.2 % (36.0-66.0)
[2021-10-08] MEDS ORDERED: propofoL 200 MG/20 ML VIAL As Ordered ONE (12:14)
[2021-10-08] MEDS ORDERED: fentaNYL 100 MCG/2 ML INJECTION As Ordered ONE (12:14)
[2021-10-08 14:00] VITALS: BP 135/90
[2021-10-08] MEDS ORDERED: ALBUTEROL 90 MCG/ACT 8GM HFA INHALER INH PRN (17:45)
[2021-10-08] MEDS: SYMBICORT 160/4.5MCG INHALER 6GM INH SCH (19:37)
[2021-10-08] MEDS: RAMELTEON 8 MG TAB (ROZEREM) PO PRN (20:21)
[2021-10-08] MEDS: ATORVASTATIN 10 MG TAB PO SCH (20:21)
[2021-10-08] MEDS: PRAZOSIN 1 MG CAP PO SCH (20:22)
[2021-10-08] MEDS: CETIRIZINE (ZyrTEC) 10 MG TAB PO SCH (20:23)
[2021-10-08 22:00] VITALS: BP 119/62
[2021-10-09] MEDS: MORPHINE 2 MG/ML 1ML VIAL IV PRN ×5 (04:54→21:44)
[2021-10-09] MEDS: HEPARIN SOD (PORCINE) 5000UNITS/ML 1ML VIAL/SYRINGE SQ SCH ×3 (04:55→20:10)
[2021-10-09 06:00] VITALS: BP 118/65
[2021-10-09 06:26] LABS: HEMATOCRIT 32.2 % (36.0-47.0); HEMOGLOBIN 10.7 g/dl (12.0-15.5); MEAN CORPUSCULAR HEMOGLOBIN 28.7 pg (27.0-33.0); MEAN CORPUSCULAR HGB CONC 33.2 g/dl (32.0-36.5); MEAN CORPUSCULAR VOLUME 86.3 fl (80.0-96.0); PLATELET COUNT, AUTOMATED 324 10^3/uL (150-450); RED BLOOD COUNT 3.73 10^6/uL (4.00-5.40); WHITE BLOOD COUNT 7.6 10^3/uL (4.0-10.0)
[2021-10-09 06:54] LABS: ALT/SGPT 35 U/L (12-78); BILIRUBIN,TOTAL 0.3 MG/DL (0.2-1.0); BLOOD UREA NITROGEN 7 MG/DL (7-18); CALCIUM LEVEL 8.8 MG/DL (8.5-10.1); CARBON DIOXIDE LEVEL 26 MEQ/L (21-32); CHLORIDE LEVEL 108 MEQ/L (98-107); CREATININE FOR GFR 1.07 MG/DL (0.55-1.30); GLOMERULAR FILTRATION RATE > 60.0 (>60); GLUCOSE, FASTING 131 MG/DL (70-100); MAGNESIUM LEVEL 2.2 MG/DL (1.8-2.4); SODIUM LEVEL 141 MEQ/L (136-145); TOTAL PROTEIN 6.5 GM/DL (6.4-8.2)
[2021-10-09] MEDS: SYMBICORT 160/4.5MCG INHALER 6GM INH SCH ×2 (08:04→19:29)
[2021-10-09] MEDS: SUCRALFATE 1 GM TAB PO SCH ×4 (09:13→20:09)
[2021-10-09] MEDS: FOLIC ACID 1 MG TAB PO SCH (09:13)
[2021-10-09] MEDS: SENNA 8.6 MG TAB (SENOKOT) PO SCH ×2 (09:13→20:09)
[2021-10-09] MEDS: MULTIVITAMINS/MINERALS THERAP 1 TAB PO SCH (09:13)
[2021-10-09] MEDS: PANTOPRAZOLE 40MG TAB (PROTONIX) PO SCH ×2 (09:13→20:09)
[2021-10-09] MEDS: GABAPENTIN 400MG CAP PO SCH ×3 (09:14→20:09)
[2021-10-09] MEDS: NYSTATIN 500,000 U/5 ML SUSP UDC SS SCH ×4 (09:14→20:09)
[2021-10-09] MEDS: SERTRALINE 100 MG TAB PO SCH (09:14)
[2021-10-09] MEDS: DICLOFENAC EPOLAMINE 1.3 % PATCH TOP SCH ×2 (09:14→20:10)
[2021-10-09] MEDS: clonazePAM 0.5 MG TAB PO PRN ×3 (09:22→22:21)
[2021-10-09] MEDS: oxyCODONE 5MG TAB PO PRN ×2 (11:30→19:04)
[2021-10-09 14:00] VITALS: BP 112/63
[2021-10-09] MEDS: ONDANSETRON 4MG 2ML VIAL IV PRN (19:03)
[2021-10-09] MEDS: RAMELTEON 8 MG TAB (ROZEREM) PO PRN (20:09)
[2021-10-09] MEDS: SIMETHICONE 80MG CHEW TAB PO PRN (20:09)
[2021-10-09] MEDS: CETIRIZINE (ZyrTEC) 10 MG TAB PO SCH (20:10)
[2021-10-09] MEDS: ATORVASTATIN 10 MG TAB PO SCH (20:10)
[2021-10-09] MEDS: PRAZOSIN 1 MG CAP PO SCH (20:12)
[2021-10-09 22:00] VITALS: BP 131/84
[2021-10-10] MEDS: oxyCODONE 5MG TAB PO PRN ×4 (01:32→23:56)
[2021-10-10] MEDS: MORPHINE 2 MG/ML 1ML VIAL IV PRN ×5 (03:25→21:14)
[2021-10-10] MEDS: HEPARIN SOD (PORCINE) 5000UNITS/ML 1ML VIAL/SYRINGE SQ SCH ×3 (05:08→20:48)
[2021-10-10 06:00] VITALS: BP 123/78
[2021-10-10 06:19] LABS: HEMATOCRIT 33.5 % (36.0-47.0); HEMOGLOBIN 11.3 g/dl (12.0-15.5); MEAN CORPUSCULAR HEMOGLOBIN 29.4 pg (27.0-33.0); MEAN CORPUSCULAR HGB CONC 33.7 g/dl (32.0-36.5); PLATELET COUNT, AUTOMATED 369 10^3/uL (150-450); RED BLOOD COUNT 3.85 10^6/uL (4.00-5.40); WHITE BLOOD COUNT 8.9 10^3/uL (4.0-10.0)
[2021-10-10 06:40] LABS: ALBUMIN 3.2 GM/DL (3.2-5.2); ALT/SGPT 36 U/L (12-78); BILIRUBIN,TOTAL 0.2 MG/DL (0.2-1.0); BLOOD UREA NITROGEN 8 MG/DL (7-18); CALCIUM LEVEL 9.1 MG/DL (8.5-10.1); CARBON DIOXIDE LEVEL 24 MEQ/L (21-32); CHLORIDE LEVEL 108 MEQ/L (98-107); CREATININE FOR GFR 0.96 MG/DL (0.55-1.30); GLOMERULAR FILTRATION RATE > 60.0 (>60); GLUCOSE, FASTING 103 MG/DL (70-100); MAGNESIUM LEVEL 2.1 MG/DL (1.8-2.4); PHOSPHORUS LEVEL 5.9 MG/DL (2.5-4.9); POTASSIUM SERUM 4.1 MEQ/L (3.5-5.1); SODIUM LEVEL 140 MEQ/L (136-145)
[2021-10-10] MEDS: SYMBICORT 160/4.5MCG INHALER 6GM INH SCH ×2 (07:25→19:42)
[2021-10-10] MEDS: GABAPENTIN 400MG CAP PO SCH ×3 (08:08→20:49)
[2021-10-10] MEDS: SUCRALFATE 1 GM TAB PO SCH ×4 (08:08→20:49)
[2021-10-10] MEDS: FOLIC ACID 1 MG TAB PO SCH (08:08)
[2021-10-10] MEDS: NYSTATIN 500,000 U/5 ML SUSP UDC SS SCH ×4 (08:08→20:48)
[2021-10-10] MEDS: PANTOPRAZOLE 40MG TAB (PROTONIX) PO SCH ×2 (08:08→20:49)
[2021-10-10] MEDS: MULTIVITAMINS/MINERALS THERAP 1 TAB PO SCH (08:08)
[2021-10-10] MEDS: SENNA 8.6 MG TAB (SENOKOT) PO SCH ×2 (08:08→20:49)
[2021-10-10] MEDS: SERTRALINE 100 MG TAB PO SCH (08:08)
[2021-10-10] MEDS: DICLOFENAC EPOLAMINE 1.3 % PATCH TOP SCH ×2 (08:13→20:48)
[2021-10-10] MEDS: clonazePAM 0.5 MG TAB PO PRN ×3 (09:39→23:56)
[2021-10-10 15:13] VITALS: BP 121/77
[2021-10-10] MEDS: MIRALAX *UNIT DOSE* 17GM PACKET PO SCH (20:48)
[2021-10-10] MEDS: ATORVASTATIN 10 MG TAB PO SCH (20:49)
[2021-10-10] MEDS: CETIRIZINE (ZyrTEC) 10 MG TAB PO SCH (20:49)
[2021-10-10] MEDS: PRAZOSIN 1 MG CAP PO SCH (20:50)
[2021-10-10 21:41] VITALS: BP 120/75
[2021-10-11] MEDS: MORPHINE 2 MG/ML 1ML VIAL IV PRN ×4 (02:41→21:33)
[2021-10-11 06:00] VITALS: BP 130/85
[2021-10-11] MEDS: HEPARIN SOD (PORCINE) 5000UNITS/ML 1ML VIAL/SYRINGE SQ SCH ×3 (06:02→21:34)
[2021-10-11] MEDS: oxyCODONE 5MG TAB PO PRN ×3 (06:03→18:46)
[2021-10-11] MEDS: SUCRALFATE 1 GM TAB PO SCH ×4 (07:30→20:28)
[2021-10-11] MEDS: SYMBICORT 160/4.5MCG INHALER 6GM INH SCH ×2 (07:31→19:55)
[2021-10-11] MEDS: MULTIVITAMINS/MINERALS THERAP 1 TAB PO SCH (09:40)
[2021-10-11] MEDS: GABAPENTIN 400MG CAP PO SCH ×3 (09:40→20:28)
[2021-10-11] MEDS: FOLIC ACID 1 MG TAB PO SCH (09:40)
[2021-10-11] MEDS: PANTOPRAZOLE 40MG TAB (PROTONIX) PO SCH ×2 (09:40→20:28)
[2021-10-11] MEDS: SENNA 8.6 MG TAB (SENOKOT) PO SCH ×2 (09:40→20:28)
[2021-10-11] MEDS: SERTRALINE 100 MG TAB PO SCH (09:40)
[2021-10-11] MEDS: MIRALAX *UNIT DOSE* 17GM PACKET PO SCH (09:41)
[2021-10-11] MEDS: NYSTATIN 500,000 U/5 ML SUSP UDC SS SCH ×4 (09:41→20:27)
[2021-10-11] MEDS: clonazePAM 0.5 MG TAB PO PRN ×2 (09:41→17:44)
[2021-10-11] MEDS: DICLOFENAC EPOLAMINE 1.3 % PATCH TOP SCH ×2 (09:42→20:28)
[2021-10-11 14:00] VITALS: BP 121/77
[2021-10-11] MEDS: DICYCLOMINE 10 MG CAP PO PRN (20:27)
[2021-10-11] MEDS: SIMETHICONE 80MG CHEW TAB PO PRN (20:28)
[2021-10-11] MEDS: ATORVASTATIN 10 MG TAB PO SCH (20:28)
[2021-10-11] MEDS: CETIRIZINE (ZyrTEC) 10 MG TAB PO SCH (20:28)
[2021-10-11] MEDS: PRAZOSIN 1 MG CAP PO SCH (20:29)
[2021-10-11] MEDS: RAMELTEON 8 MG TAB (ROZEREM) PO PRN (21:34)
[2021-10-11 22:00] VITALS: BP 146/97
[2021-10-12] MEDS: oxyCODONE 5MG TAB PO PRN ×4 (01:16→21:43)
[2021-10-12] MEDS: MORPHINE 2 MG/ML 1ML VIAL IV PRN ×4 (03:41→22:49)
[2021-10-12 05:32] LABS: MEAN CORPUSCULAR HEMOGLOBIN 28.9 pg (27.0-33.0); MEAN CORPUSCULAR HGB CONC 33.3 g/dl (32.0-36.5); PLATELET COUNT, AUTOMATED 444 10^3/uL (150-450); WHITE BLOOD COUNT 10.2 10^3/uL (4.0-10.0)
[2021-10-12] MEDS: HEPARIN SOD (PORCINE) 5000UNITS/ML 1ML VIAL/SYRINGE SQ SCH ×3 (05:35→21:43)
[2021-10-12 05:38] LABS: HEMOGLOBIN 13.3 g/dl (12.0-15.5)
[2021-10-12 05:57] LABS: BLOOD UREA NITROGEN 11 MG/DL (7-18); CALCIUM LEVEL 9.7 MG/DL (8.5-10.1); CARBON DIOXIDE LEVEL 27 MEQ/L (21-32); CHLORIDE LEVEL 103 MEQ/L (98-107); CREATININE FOR GFR 1.03 MG/DL (0.55-1.30); GLOMERULAR FILTRATION RATE > 60.0 (>60); GLUCOSE, FASTING 108 MG/DL (70-100); MAGNESIUM LEVEL 1.6 MG/DL (1.8-2.4); PHOSPHORUS LEVEL 5.9 MG/DL (2.5-4.9); POTASSIUM SERUM 4.1 MEQ/L (3.5-5.1); SODIUM LEVEL 139 MEQ/L (136-145)
[2021-10-12 06:00] VITALS: BP 122/72
[2021-10-12] MEDS: SYMBICORT 160/4.5MCG INHALER 6GM INH SCH ×2 (07:14→19:33)
[2021-10-12] MEDS: SENNA 8.6 MG TAB (SENOKOT) PO SCH ×2 (08:18→21:42)
[2021-10-12] MEDS: GABAPENTIN 400MG CAP PO SCH ×3 (08:19→21:41)
[2021-10-12] MEDS: SERTRALINE 100 MG TAB PO SCH (08:19)
[2021-10-12] MEDS: SUCRALFATE 1 GM TAB PO SCH ×4 (08:19→21:42)
[2021-10-12] MEDS: FOLIC ACID 1 MG TAB PO SCH (08:21)
[2021-10-12] MEDS: MULTIVITAMINS/MINERALS THERAP 1 TAB PO SCH (08:21)
[2021-10-12] MEDS: PANTOPRAZOLE 40MG TAB (PROTONIX) PO SCH ×2 (08:21→21:42)
[2021-10-12] MEDS: clonazePAM 0.5 MG TAB PO PRN ×2 (08:22→18:19)
[2021-10-12] MEDS: NYSTATIN 500,000 U/5 ML SUSP UDC SS SCH ×4 (08:22→21:42)
[2021-10-12] MEDS: DICLOFENAC EPOLAMINE 1.3 % PATCH TOP SCH ×2 (08:22→21:41)
[2021-10-12] MEDS: MIRALAX *UNIT DOSE* 17GM PACKET PO SCH (09:00)
[2021-10-12] MEDS: MAG SULF 1GM/100ML (MAG RUN) 1 GM in IV 1 EA IV SCH ×2 (09:30→11:07)
[2021-10-12 12:00] VITALS: BP 130/77
[2021-10-12] MEDS ORDERED: ISOVUE-370 76% 100ML VIAL As Ordered ONE (13:27)
[2021-10-12 14:00] VITALS: BP 126/78
[2021-10-12 21:42] VITALS: BP 126/78
[2021-10-12] MEDS: ATORVASTATIN 10 MG TAB PO SCH (21:42)
[2021-10-12] MEDS: CETIRIZINE (ZyrTEC) 10 MG TAB PO SCH (21:42)
[2021-10-12] MEDS: PRAZOSIN 1 MG CAP PO SCH (21:42)
[2021-10-12 22:00] VITALS: BP 126/78
[2021-10-13] MEDS: RAMELTEON 8 MG TAB (ROZEREM) PO PRN (02:00)
[2021-10-13] MEDS: clonazePAM 0.5 MG TAB PO PRN ×2 (02:46→09:05)
[2021-10-13] MEDS: HEPARIN SOD (PORCINE) 5000UNITS/ML 1ML VIAL/SYRINGE SQ SCH (05:43)
[2021-10-13] MEDS: oxyCODONE 5MG TAB PO PRN ×2 (05:44→13:39)
[2021-10-13 06:00] VITALS: BP 116/80
[2021-10-13 06:16] LABS: HEMOGLOBIN 12.7 g/dl (12.0-15.5); MEAN CORPUSCULAR HEMOGLOBIN 28.7 pg (27.0-33.0); MEAN CORPUSCULAR HGB CONC 33.4 g/dl (32.0-36.5); MEAN CORPUSCULAR VOLUME 85.8 fl (80.0-96.0); PLATELET COUNT, AUTOMATED 455 10^3/uL (150-450); RED BLOOD COUNT 4.43 10^6/uL (4.00-5.40); WHITE BLOOD COUNT 11.3 10^3/uL (4.0-10.0)
[2021-10-13 06:39] LABS: BLOOD UREA NITROGEN 12 MG/DL (7-18); CALCIUM LEVEL 9.5 MG/DL (8.5-10.1); CARBON DIOXIDE LEVEL 27 MEQ/L (21-32); CHLORIDE LEVEL 102 MEQ/L (98-107); CREATININE FOR GFR 0.96 MG/DL (0.55-1.30); GLOMERULAR FILTRATION RATE > 60.0 (>60); GLUCOSE, FASTING 113 MG/DL (70-100); MAGNESIUM LEVEL 2.2 MG/DL (1.8-2.4); PHOSPHORUS LEVEL 5.4 MG/DL (2.5-4.9); SODIUM LEVEL 136 MEQ/L (136-145)
[2021-10-13] MEDS: SYMBICORT 160/4.5MCG INHALER 6GM INH SCH (07:13)
[2021-10-13] MEDS: SERTRALINE 100 MG TAB PO SCH (07:48)
[2021-10-13] MEDS: NYSTATIN 500,000 U/5 ML SUSP UDC SS SCH (07:48)
[2021-10-13] MEDS: MULTIVITAMINS/MINERALS THERAP 1 TAB PO SCH (07:49)
[2021-10-13] MEDS: GABAPENTIN 400MG CAP PO SCH (07:49)
[2021-10-13] MEDS: FOLIC ACID 1 MG TAB PO SCH (07:49)
[2021-10-13] MEDS: PANTOPRAZOLE 40MG TAB (PROTONIX) PO SCH (07:49)
[2021-10-13] MEDS: MIRALAX *UNIT DOSE* 17GM PACKET PO SCH (07:49)
[2021-10-13] MEDS: SUCRALFATE 1 GM TAB PO SCH ×2 (07:49→11:11)
[2021-10-13] MEDS: SENNA 8.6 MG TAB (SENOKOT) PO SCH (07:49)
[2021-10-13] MEDS: MORPHINE 2 MG/ML 1ML VIAL IV PRN ×2 (07:50→11:48)
[2021-10-13] MEDS: DICLOFENAC EPOLAMINE 1.3 % PATCH TOP SCH (09:00)
[2021-10-13 09:28] LABS: HEMATOCRIT 35.9 % (36.0-47.0); HEMOGLOBIN 12.1 g/dl (12.0-15.5); MEAN CORPUSCULAR HEMOGLOBIN 28.9 pg (27.0-33.0); MEAN CORPUSCULAR HGB CONC 33.7 g/dl (32.0-36.5); MEAN CORPUSCULAR VOLUME 85.7 fl (80.0-96.0); PLATELET COUNT, AUTOMATED 408 10^3/uL (150-450); RED BLOOD COUNT 4.19 10^6/uL (4.00-5.40)
[2021-10-13 09:53] LABS: C REACTIVE PROTEIN QUANTITATIV 0.98 MG/DL (0.00-0.30)
[2021-10-13] MEDS: ONDANSETRON 4MG 2ML VIAL IV PRN (11:11)
[2021-10-13 11:47] LABS: TOTAL 25(OH) VITAMIN D 19.9 NG/ML (30.0-100.0)
[2021-10-13] MEDS ORDERED: VENTAER INH (12:40)
[2021-10-13] MEDS ORDERED: SYMB16INH INH (12:40)
[2021-10-13] MEDS ORDERED: CLON0.5T2 PO (12:40)
[2021-10-13] MEDS ORDERED: NICO21PAT TD (12:40)
[2021-10-13] MEDS ORDERED: D 101000 PO (12:51)
[2021-10-13] MEDS ORDERED: PRED10TA2 PO (12:55)
== END 2021-10-13 13:53 | disposition home or self-care (01) | DRG 346 ==
LOC: M MS5PR 01:42 → M MSPAV 10-12 11:45
PROVIDERS: ADMIT Internal Medicine; ATTEND Internal Medicine
PROC: 0DJ08ZZ Inspection of Upper Intestinal Tract, Via Natural or Artificial Opening Endoscopic (ICD-10-PCS; 2021-10-08)
PROC: BW21YZZ Computerized Tomography (CT Scan) of Abdomen and Pelvis using Other Contrast (ICD-10-PCS; principal; 2021-10-12)
DX: I77.6 Arteritis, unspecified (principal); J90 Pleural effusion, not elsewhere classified; B37.0 Candidal stomatitis; I95.9 Hypotension, unspecified; K21.9 Gastro-esophageal reflux disease without esophagitis; I10 Essential (primary) hypertension; E78.5 Hyperlipidemia, unspecified; Z85.41 Personal history of malignant neoplasm of cervix uteri; Z90.79 Acquired absence of other genital organ(s); M79.7 Fibromyalgia; G25.0 Essential tremor; F17.210 Nicotine dependence, cigarettes, uncomplicated; M54.9 Dorsalgia, unspecified; G89.29 Other chronic pain; F32.A Depression, unspecified; F41.9 Anxiety disorder, unspecified; Z79.899 Other long term (current) drug therapy; Z88.8 Allergy status to other drugs, medicaments and biological substances; Z20.822 Contact with and (suspected) exposure to COVID-19; J45.909 Unspecified asthma, uncomplicated; K29.70 Gastritis, unspecified, without bleeding

== ENCOUNTER 2021-12-31 15:22 | Inpatient (IN) | payer OTHER ==
[~2021-12-31] VITALS: Ht 165.1 cm; Wt 72.7 kg
[~2021-12-31 15:22] MED LIST changes: +D 101000 PO; +DOCU100C16 PO; +KLON0.5T PO; +NICO21PAT TD; +PRAZ1CAP PO; +PRED10TA2 PO; +SYMB16INH INH; +VENTAER INH
[2021-12-31] MEDS ORDERED: OXAZEPAM 15MG CAP PO ONE (16:25)
[2021-12-31] MEDS: LORazepam 2 MG TAB PO PRN ×2 (16:56→21:21)
[2021-12-31] MEDS: MULTIVITAMINS/MINERALS THERAP 1 TAB PO SCH (16:57)
[2021-12-31] MEDS: FOLIC ACID 1MG TAB PO SCH (16:57)
[2021-12-31 17:52] LABS: HEMATOCRIT 36.3 % (36.0-47.0); HEMOGLOBIN 12.3 g/dl (12.0-15.5); MEAN CORPUSCULAR HEMOGLOBIN 28.9 pg (27.0-33.0); MEAN CORPUSCULAR HGB CONC 33.9 g/dl (32.0-36.5); MEAN CORPUSCULAR VOLUME 85.2 fl (80.0-96.0); PLATELET COUNT, AUTOMATED 340 10^3/uL (150-450); RED BLOOD COUNT 4.26 10^6/uL (4.00-5.40); WHITE BLOOD COUNT 7.2 10^3/uL (4.0-10.0)
[2021-12-31 18:30] LABS: ACETAMINOPHEN LEVEL < 2.0 UG/ML (10.0-30.0); ALBUMIN 3.5 GM/DL (3.2-5.2); ALT/SGPT 344 U/L (12-78); BILIRUBIN,DIRECT 0.1 MG/DL (0.0-0.2); BILIRUBIN,TOTAL 0.3 MG/DL (0.2-1.0); BLOOD UREA NITROGEN 10 MG/DL (7-18); CALCIUM LEVEL 8.6 MG/DL (8.5-10.1); CARBON DIOXIDE LEVEL 24 MEQ/L (21-32); CHLORIDE LEVEL 109 MEQ/L (98-107); ETHYL ALCOHOL (ETHANOL) 0.006 % (0.000-0.010); GLOMERULAR FILTRATION RATE > 60.0 (>60); GLUCOSE, FASTING 88 MG/DL (70-100); POTASSIUM SERUM 3.9 MEQ/L (3.5-5.1); SALICYLATE LEVEL 5.1 MG/DL (5.0-30.0); SODIUM LEVEL 138 MEQ/L (136-145); TOTAL PROTEIN 6.8 GM/DL (6.4-8.2)
[2021-12-31 18:47] LABS: RSV AMPLIFICATION NEGATIVE (NEGATIVE)
[2021-12-31 18:49] LABS: HCG, SERUM QUALITATIVE NEGATIVE (NEGATIVE)
[2021-12-31 18:58] LABS: AMPHETAMINES LEVEL URINE NEGATIVE (NEGATIVE); BARBITURATES URINE NEGATIVE (NEGATIVE); BENZODIAZEPINES URINE POSITIVE (NEGATIVE); CANNABINOIDS URINE POSITIVE (NEGATIVE); COCAINE METABOLITE URINE NEGATIVE (NEGATIVE); METHADONE URINE NEGATIVE (NEGATIVE); OPIATES URINE POSITIVE (NEGATIVE); PHENCYCLIDINE URINE NEGATIVE (NEGATIVE)
[2021-12-31] MEDS ORDERED: NICO21DI9 TOP (19:31)
[2021-12-31] MEDS ORDERED: VITA100054 PO (19:31)
[2021-12-31] MEDS ORDERED: VENTAER INH (19:31)
[2021-12-31] MEDS ORDERED: SYMB16INH INH (19:31)
[2021-12-31] MEDS ORDERED: CLON0.5T17 PO (19:31)
[2021-12-31] MEDS ORDERED: HOME MED LIST COMPLETE! XX SCH (19:35)
[2021-12-31] MEDS: SYMBICORT 160/4.5MCG INHALER 6GM INH SCH (20:00)
[2021-12-31] MEDS ORDERED: PRAZOSIN 1 MG CAP PO SCH (21:00)
[2021-12-31] MEDS ORDERED: CETIRIZINE (ZyrTEC) 10 MG TAB PO ONE (21:00)
[2021-12-31] MEDS ORDERED: SERTRALINE 100 MG TAB PO ONE (21:00)
[2021-12-31] MEDS: THIAMINE 100 MG TAB PO SCH (21:19)
[2022-01-01] MEDS ORDERED: GABAPENTIN 400MG CAP PO ONE ×3 (00:15→09:00)
[2022-01-01] MEDS ORDERED: PANTOPRAZOLE 40MG TAB (PROTONIX) PO ONE ×2 (00:15→09:00)
[2022-01-01] MEDS ORDERED: SERTRALINE 100 MG TAB PO ONE ×2 (00:15→01:35)
[2022-01-01] MEDS ORDERED: clonazePAM 0.5 MG TAB PO ONE ×2 (00:15→09:00)
[2022-01-01] MEDS: LORazepam 2 MG TAB PO PRN ×3 (00:30→22:50)
[2022-01-01] MEDS ORDERED: tiZANidine 4 MG TAB PO ONE ×2 (00:35→02:00)
[2022-01-01] MEDS ORDERED: ZANA2CAP PO (00:38)
[2022-01-01] MEDS ORDERED: ALBUTEROL 90 MCG/ACT 8GM HFA INHALER INH ONE ×2 (01:35→02:00)
[2022-01-01] MEDS: SYMBICORT 160/4.5MCG INHALER 6GM INH SCH ×2 (08:00→20:36)
[2022-01-01] MEDS: FOLIC ACID 1MG TAB PO SCH (08:41)
[2022-01-01] MEDS: MULTIVITAMINS/MINERALS THERAP 1 TAB PO SCH (08:45)
[2022-01-01] MEDS: THIAMINE 100 MG TAB PO SCH ×2 (08:46→20:38)
[2022-01-01] MEDS ORDERED: MULTIVITAMINS/MINERALS THERAP 1 TAB PO ONE (09:00)
[2022-01-01] MEDS ORDERED: VITAMIN D 1,000 INTERNATIONAL UNITS TABLET PO SCH (09:00)
[2022-01-01] MEDS ORDERED: NICOTINE 21MG/24HR 1 EA TRANSDERMAL TD ONE (09:00)
[2022-01-01] MEDS ORDERED: PRAZOSIN 1 MG CAP PO SCH ×2 (09:00)
[2022-01-01] MEDS ORDERED: ALBUTEROL 90 MCG/ACT 8GM HFA INHALER INH PRN (12:40)
[2022-01-01] MEDS ORDERED: MOM 30ML SUSPENSION UDC PO PRN (12:40)
[2022-01-01] MEDS ORDERED: MAALOX 30 ML SUSP *UDC PO PRN (12:40)
[2022-01-01] MEDS: GABAPENTIN 400MG CAP PO SCH ×2 (16:40→20:39)
[2022-01-01 18:06] VITALS: BP 160/80
[2022-01-01] MEDS ORDERED: cloNIDine 0.1MG TABLET PO PRN (20:35)
[2022-01-01] MEDS: CETIRIZINE (ZyrTEC) 10 MG TAB PO SCH (20:38)
[2022-01-01] MEDS: PRAZOSIN 1 MG CAP PO SCH (20:38)
[2022-01-01] MEDS: PANTOPRAZOLE 40MG TAB (PROTONIX) PO SCH (20:39)
[2022-01-01] MEDS: SERTRALINE 100 MG TAB PO SCH (20:39)
[2022-01-01] MEDS: clonazePAM 0.5 MG TAB PO SCH (20:40)
[2022-01-01] MEDS ORDERED: ATORVASTATIN 10 MG TAB PO SCH (21:00)
[2022-01-01] MEDS ORDERED: ATORVASTATIN 20 MG TAB PO ONE (21:00)
[2022-01-01] MEDS ORDERED: tiZANidine 4 MG TAB PO SCH (21:00)
[2022-01-01 22:40] VITALS: BP 124/76
[2022-01-01] MEDS: traZODone 50 MG TAB PO PRN (22:50)
[2022-01-02] VITALS (7 sets, daily range): BP systolic 102–126; BP diastolic 64–75
[2022-01-02] MEDS: OXAZEPAM 15MG CAP PO SCH ×2 (01:15→05:43)
[2022-01-02 08:22] LABS: ALBUMIN 3.6 GM/DL (3.2-5.2); ALT/SGPT 556 U/L (12-78); BILIRUBIN,TOTAL 0.3 MG/DL (0.2-1.0); BLOOD UREA NITROGEN 9 MG/DL (7-18); CALCIUM LEVEL 9.7 MG/DL (8.5-10.1); CARBON DIOXIDE LEVEL 26 MEQ/L (21-32); CHLORIDE LEVEL 104 MEQ/L (98-107); CREATININE FOR GFR 0.87 MG/DL (0.55-1.30); GLOMERULAR FILTRATION RATE > 60.0 (>60); GLUCOSE, FASTING 157 MG/DL (70-100); MAGNESIUM LEVEL 1.5 MG/DL (1.8-2.4); POTASSIUM SERUM 3.5 MEQ/L (3.5-5.1); SODIUM LEVEL 136 MEQ/L (136-145); TOTAL PROTEIN 7.2 GM/DL (6.4-8.2)
[2022-01-02] MEDS: NICOTINE 21MG/24HR 1 EA TRANSDERMAL TD SCH (08:36)
[2022-01-02] MEDS: SYMBICORT 160/4.5MCG INHALER 6GM INH SCH ×2 (08:36→20:14)
[2022-01-02] MEDS: GABAPENTIN 400MG CAP PO SCH ×3 (08:37→20:14)
[2022-01-02] MEDS: clonazePAM 0.5 MG TAB PO SCH ×2 (08:37→20:14)
[2022-01-02] MEDS: FOLIC ACID 1MG TAB PO SCH (08:37)
[2022-01-02] MEDS: PANTOPRAZOLE 40MG TAB (PROTONIX) PO SCH ×2 (08:37→20:14)
[2022-01-02] MEDS: MULTIVITAMINS/MINERALS THERAP 1 TAB PO SCH (08:38)
[2022-01-02] MEDS: VITAMIN D 1,000 INTERNATIONAL UNITS TABLET PO SCH (08:38)
[2022-01-02] MEDS: THIAMINE 100 MG TAB PO SCH ×2 (08:38→20:15)
[2022-01-02] MEDS ORDERED: PREVNAR-20 VACCINE 0.5ML SYRINGE IM.IMMUN ONE (09:00)
[2022-01-02] MEDS ORDERED: MULTIVITAMINS/MINERALS THERAP 1 TAB PO SCH (09:00)
[2022-01-02] MEDS ORDERED: INFLUENZA QUADRIVALENT PF VACCINE 0.5ML SYRINGE IM.IMMUN ONE (09:00)
[2022-01-02 11:17] LABS: INR 0.94
[2022-01-02] MEDS ORDERED: hydrOXYzine 50 MG TAB PO PRN (11:30)
[2022-01-02] MEDS: tiZANidine 4 MG TAB PO SCH ×3 (12:39→20:15)
[2022-01-02] MEDS: cloNIDine 0.2 MG TAB PO PRN ×2 (12:41→22:27)
[2022-01-02] MEDS ORDERED: TIZA10TA PO (13:32)
[2022-01-02] MEDS: LORazepam 2 MG TAB PO PRN (15:24)
[2022-01-02] MEDS: SERTRALINE 100 MG TAB PO SCH (20:14)
[2022-01-02] MEDS: CETIRIZINE (ZyrTEC) 10 MG TAB PO SCH (20:14)
[2022-01-02] MEDS: PRAZOSIN 1 MG CAP PO SCH (22:26)
[2022-01-02] MEDS: traZODone 50 MG TAB PO PRN (22:27)
[2022-01-03 06:39] VITALS: BP 105/56
[2022-01-03 06:40] VITALS: BP 105/56
[2022-01-03 08:04] LABS: ALBUMIN 3.5 GM/DL (3.2-5.2); BILIRUBIN,DIRECT 0.2 MG/DL (0.0-0.2); BILIRUBIN,TOTAL 0.4 MG/DL (0.2-1.0)
[2022-01-03] MEDS: SYMBICORT 160/4.5MCG INHALER 6GM INH SCH ×2 (08:40→20:03)
[2022-01-03] MEDS: VITAMIN D 1,000 INTERNATIONAL UNITS TABLET PO SCH (08:41)
[2022-01-03] MEDS: THIAMINE 100 MG TAB PO SCH ×2 (08:41→20:03)
[2022-01-03] MEDS: FOLIC ACID 1MG TAB PO SCH (08:41)
[2022-01-03] MEDS: PANTOPRAZOLE 40MG TAB (PROTONIX) PO SCH ×2 (08:41→20:03)
[2022-01-03] MEDS: tiZANidine 4 MG TAB PO SCH ×2 (08:41→12:35)
[2022-01-03] MEDS: MULTIVITAMINS/MINERALS THERAP 1 TAB PO SCH (08:41)
[2022-01-03] MEDS: clonazePAM 0.5 MG TAB PO SCH ×2 (08:42→20:03)
[2022-01-03] MEDS: GABAPENTIN 400MG CAP PO SCH ×3 (08:42→20:03)
[2022-01-03] MEDS: NICOTINE 21MG/24HR 1 EA TRANSDERMAL TD SCH (08:44)
[2022-01-03] MEDS: IBUPROFEN 400MG TAB PO PRN ×2 (12:34→23:12)
[2022-01-03 14:00] VITALS: BP 92/52
[2022-01-03] MEDS ORDERED: tiZANidine 4 MG TAB PO SCH (14:45)
[2022-01-03 18:00] VITALS: BP 92/52
[2022-01-03] MEDS: SERTRALINE 100 MG TAB PO SCH (20:03)
[2022-01-03] MEDS: tiZANidine 4 MG TAB PO PRN (20:04)
[2022-01-03] MEDS: CETIRIZINE (ZyrTEC) 10 MG TAB PO SCH (20:04)
[2022-01-03] MEDS ORDERED: PRAZOSIN 1 MG CAP PO SCH (21:00)
[2022-01-03 22:35] VITALS: BP 105/72
[2022-01-03] MEDS: traZODone 50 MG TAB PO PRN (22:53)
[2022-01-04] MEDS: IBUPROFEN 400MG TAB PO PRN ×2 (05:47→20:45)
[2022-01-04 06:41] VITALS: BP 131/66
[2022-01-04 06:59] VITALS: BP 131/66
[2022-01-04] MEDS: SYMBICORT 160/4.5MCG INHALER 6GM INH SCH ×2 (08:02→20:40)
[2022-01-04] MEDS: FOLIC ACID 1MG TAB PO SCH (08:04)
[2022-01-04] MEDS: NICOTINE 21MG/24HR 1 EA TRANSDERMAL TD SCH (08:04)
[2022-01-04] MEDS: THIAMINE 100 MG TAB PO SCH (08:05)
[2022-01-04] MEDS: PANTOPRAZOLE 40MG TAB (PROTONIX) PO SCH ×2 (08:05→20:40)
[2022-01-04] MEDS: MULTIVITAMINS/MINERALS THERAP 1 TAB PO SCH (08:05)
[2022-01-04] MEDS: tiZANidine 4 MG TAB PO PRN ×2 (08:05→20:40)
[2022-01-04] MEDS: VITAMIN D 1,000 INTERNATIONAL UNITS TABLET PO SCH (08:05)
[2022-01-04] MEDS: clonazePAM 0.5 MG TAB PO SCH ×2 (08:05→20:41)
[2022-01-04] MEDS: GABAPENTIN 400MG CAP PO SCH ×3 (08:05→20:41)
[2022-01-04] MEDS: OLANZapine ORAL DISINTEGRATING TAB 5MG PO PRN ×3 (11:11→21:03)
[2022-01-04 12:04] LABS: HEPATITIS B CORE ANTIBODY IGM NEGATIVE (NEGATIVE); HEPATITIS B SURFACE ANTIGEN NEGATIVE (NEGATIVE)
[2022-01-04 12:05] LABS: HEPATITIS C VIRUS ABY INDEX > 11.0 INDEX (<0.8)
[2022-01-04 16:28] VITALS: BP 118/68
[2022-01-04] MEDS: SERTRALINE 100 MG TAB PO SCH (20:40)
[2022-01-04] MEDS: CETIRIZINE (ZyrTEC) 10 MG TAB PO SCH (20:41)
[2022-01-04] MEDS: PRAZOSIN 1 MG CAP PO SCH (20:41)
[2022-01-04] MEDS ORDERED: KETOROLAC TROMETHAMINE 10 MG TAB PO ONE (23:35)
[2022-01-04] MEDS ORDERED: diphenhydrAMINE 25MG CAP PO ONE (23:35)
[2022-01-04] MEDS ORDERED: PROCHLORPERAZINE 5MG TAB PO ONE (23:35)
[2022-01-05 06:47] VITALS: BP 118/62
[2022-01-05] MEDS: SYMBICORT 160/4.5MCG INHALER 6GM INH SCH ×2 (07:39→20:25)
[2022-01-05] MEDS: NICOTINE 21MG/24HR 1 EA TRANSDERMAL TD SCH (07:41)
[2022-01-05] MEDS: MULTIVITAMINS/MINERALS THERAP 1 TAB PO SCH (07:43)
[2022-01-05] MEDS: PANTOPRAZOLE 40MG TAB (PROTONIX) PO SCH ×2 (07:43→20:26)
[2022-01-05] MEDS: VITAMIN D 1,000 INTERNATIONAL UNITS TABLET PO SCH (07:43)
[2022-01-05] MEDS: GABAPENTIN 400MG CAP PO SCH ×3 (07:43→20:26)
[2022-01-05] MEDS: clonazePAM 0.5 MG TAB PO SCH ×2 (07:44→20:26)
[2022-01-05 08:49] LABS: ALBUMIN 3.7 GM/DL (3.2-5.2); ALT/SGPT 1058 U/L (12-78); BILIRUBIN,TOTAL 0.5 MG/DL (0.2-1.0); BLOOD UREA NITROGEN 10 MG/DL (7-18); CALCIUM LEVEL 9.1 MG/DL (8.5-10.1); CARBON DIOXIDE LEVEL 26 MEQ/L (21-32); CHLORIDE LEVEL 106 MEQ/L (98-107); CREATININE FOR GFR 0.78 MG/DL (0.55-1.30); GLOMERULAR FILTRATION RATE > 60.0 (>60); GLUCOSE, FASTING 104 MG/DL (70-100); POTASSIUM SERUM 3.9 MEQ/L (3.5-5.1); SODIUM LEVEL 137 MEQ/L (136-145); TOTAL PROTEIN 7.7 GM/DL (6.4-8.2)
[2022-01-05] MEDS: OLANZapine ORAL DISINTEGRATING TAB 5MG PO PRN (11:26)
[2022-01-05] MEDS: tiZANidine 4 MG TAB PO PRN ×2 (15:28→21:33)
[2022-01-05 16:15] VITALS: BP 120/66
[2022-01-05 18:08] LABS: ANTI-MITOCHONDRIAL ANTIBODY <20.0 Units (0.0-20.0); LIVER-KIDNEY MICROSOMAL ABY <20.1 Units (0.0-20.0)
[2022-01-05] MEDS: PRAZOSIN 1 MG CAP PO SCH (20:25)
[2022-01-05] MEDS: CETIRIZINE (ZyrTEC) 10 MG TAB PO SCH (20:25)
[2022-01-05] MEDS: SERTRALINE 100 MG TAB PO SCH (20:26)
[2022-01-05] MEDS: IBUPROFEN 400MG TAB PO PRN (20:26)
[2022-01-05] MEDS: traZODone 50 MG TAB PO PRN (21:46)
[2022-01-06] MEDS: IBUPROFEN 400MG TAB PO PRN (05:26)
[2022-01-06] MEDS: tiZANidine 4 MG TAB PO PRN ×2 (05:26→19:57)
[2022-01-06] MEDS: OLANZapine ORAL DISINTEGRATING TAB 5MG PO PRN ×3 (05:26→22:26)
[2022-01-06 06:52] VITALS: BP 123/72
[2022-01-06] MEDS: NICOTINE 21MG/24HR 1 EA TRANSDERMAL TD SCH (07:36)
[2022-01-06] MEDS: SYMBICORT 160/4.5MCG INHALER 6GM INH SCH ×2 (07:36→19:57)
[2022-01-06] MEDS: clonazePAM 0.5 MG TAB PO SCH ×2 (07:38→20:01)
[2022-01-06] MEDS: VITAMIN D 1,000 INTERNATIONAL UNITS TABLET PO SCH (07:39)
[2022-01-06] MEDS: MULTIVITAMINS/MINERALS THERAP 1 TAB PO SCH (07:39)
[2022-01-06] MEDS: GABAPENTIN 400MG CAP PO SCH ×3 (07:39→20:02)
[2022-01-06] MEDS: PANTOPRAZOLE 40MG TAB (PROTONIX) PO SCH ×2 (07:39→20:02)
[2022-01-06 16:35] VITALS: BP 109/58
[2022-01-06] MEDS: PRAZOSIN 1 MG CAP PO SCH (20:02)
[2022-01-06] MEDS: CETIRIZINE (ZyrTEC) 10 MG TAB PO SCH (20:02)
[2022-01-06] MEDS: SERTRALINE 100 MG TAB PO SCH (20:02)
[2022-01-06] MEDS: traZODone 50 MG TAB PO PRN (22:26)
[2022-01-07] MEDS: tiZANidine 4 MG TAB PO PRN ×2 (04:42→21:10)
[2022-01-07] MEDS: OLANZapine ORAL DISINTEGRATING TAB 5MG PO PRN (06:16)
[2022-01-07 06:27] VITALS: BP 107/65
[2022-01-07] MEDS: SYMBICORT 160/4.5MCG INHALER 6GM INH SCH ×2 (08:07→19:21)
[2022-01-07] MEDS: NICOTINE 21MG/24HR 1 EA TRANSDERMAL TD SCH (08:08)
[2022-01-07] MEDS: clonazePAM 0.5 MG TAB PO SCH (08:08)
[2022-01-07] MEDS: PANTOPRAZOLE 40MG TAB (PROTONIX) PO SCH ×2 (08:08→20:12)
[2022-01-07] MEDS: MULTIVITAMINS/MINERALS THERAP 1 TAB PO SCH (08:08)
[2022-01-07] MEDS: GABAPENTIN 400MG CAP PO SCH ×3 (08:08→20:11)
[2022-01-07] MEDS: VITAMIN D 1,000 INTERNATIONAL UNITS TABLET PO SCH (08:08)
[2022-01-07 18:10] LABS: HCV RNA (INTERNATIONAL UNITS) 52700000 IU/mL (.); HEPATITIS C QUANTITATION See Final Results IU/mL (.); HEPATITIS C VIRUS GENOTYPE 1a (.)
[2022-01-07 18:52] VITALS: BP 144/80
[2022-01-07] MEDS: clonazePAM 0.5 MG TAB PO PRN (19:23)
[2022-01-07 20:10] VITALS: BP 145/80
[2022-01-07] MEDS: PRAZOSIN 1 MG CAP PO SCH (20:10)
[2022-01-07] MEDS: SERTRALINE 100 MG TAB PO SCH (20:12)
[2022-01-07] MEDS: CETIRIZINE (ZyrTEC) 10 MG TAB PO SCH (20:13)
[2022-01-07] MEDS ORDERED: diphenhydrAMINE 50MG CAP PO ONE (21:05)
[2022-01-07] MEDS ORDERED: LORazepam 2 MG TAB PO ONE (21:05)
[2022-01-08 05:49] VITALS: BP 110/71
[2022-01-08] MEDS: tiZANidine 4 MG TAB PO PRN (05:54)
[2022-01-08] MEDS: OLANZapine ORAL DISINTEGRATING TAB 5MG PO PRN (05:55)
[2022-01-08] MEDS: IBUPROFEN 400MG TAB PO PRN (05:56)
[2022-01-08] MEDS: SYMBICORT 160/4.5MCG INHALER 6GM INH SCH (08:31)
[2022-01-08] MEDS: clonazePAM 0.5 MG TAB PO PRN (08:33)
[2022-01-08] MEDS: MULTIVITAMINS/MINERALS THERAP 1 TAB PO SCH (08:34)
[2022-01-08] MEDS: GABAPENTIN 400MG CAP PO SCH (08:34)
[2022-01-08] MEDS: PANTOPRAZOLE 40MG TAB (PROTONIX) PO SCH (08:34)
[2022-01-08] MEDS: VITAMIN D 1,000 INTERNATIONAL UNITS TABLET PO SCH (08:34)
[2022-01-08] MEDS: NICOTINE 21MG/24HR 1 EA TRANSDERMAL TD SCH (08:36)
[2022-01-08] MEDS ORDERED: VITAD1000T PO (10:44)
[2022-01-08] MEDS ORDERED: VITMTA PO (10:44)
[2022-01-08] MEDS ORDERED: CETI10TA PO (10:44)
[2022-01-08] MEDS ORDERED: TRAZ-252 PO (10:44)
[2022-01-08] MEDS ORDERED: ZOLO100T PO (10:44)
[2022-01-08] MEDS ORDERED: GABA-283 PO (10:44)
[2022-01-08] MEDS ORDERED: SYMB16INH INH (10:44)
[2022-01-08] MEDS ORDERED: MINI1CAP PO (10:44)
[2022-01-08] MEDS ORDERED: CLON0.5T2 PO ×2 (10:44→12:20)
[2022-01-08] MEDS ORDERED: ABIL1TAB11 PO (10:44)
[2022-01-08] MEDS ORDERED: PANT40TA29 PO (10:44)
[2022-01-08] MEDS ORDERED: TIZA10TA PO (10:44)
== END 2022-01-08 12:45 | disposition home or self-care (01) | DRG 753 ==
LOC: M ED 15:22 → M ED INP 01-01 12:37 → M PSY 01-01 17:43
PROVIDERS: ADMIT Psychiatry & Neurology Psychiatry; ATTEND Student in an Organized Health Care Education/Training Program
DX: F32.89 Other specified depressive episodes (principal); I10 Essential (primary) hypertension; F43.10 Post-traumatic stress disorder, unspecified; F12.90 Cannabis use, unspecified, uncomplicated; F60.3 Borderline personality disorder; F32.9 Major depressive disorder, single episode, unspecified; Z79.899 Other long term (current) drug therapy; Z88.8 Allergy status to other drugs, medicaments and biological substances; B18.2 Chronic viral hepatitis C; E78.5 Hyperlipidemia, unspecified; F41.9 Anxiety disorder, unspecified; Z85.41 Personal history of malignant neoplasm of cervix uteri; R74.01 Elevation of levels of liver transaminase levels; N76.0 Acute vaginitis

== ENCOUNTER 2022-01-09 22:26 | Emergency (ER) | payer OTHER ==
[~2022-01-09] VITALS: Ht 162.6 cm; Wt 75.1 kg
[~2022-01-09 22:26] MED LIST changes: +ABIL1TAB11 PO; +CLON0.5T17 PO; +GABA-283 PO; +NICO21DI9 TOP; +VITA100054 PO; +VITAD1000T PO; +ZANA2CAP PO
[2022-01-09] MEDS ORDERED: NORCO 5/325MG TABLET (HOME DOSE PACK) PO ONE (23:40)
[2022-01-09 23:46] VITALS: BP 124/88
== END 2022-01-09 23:48 | disposition home or self-care (01) ==
LOC: M ED 22:26
DX: S63.92XA Sprain of unspecified part of left wrist and hand, initial encounter (principal); W19.XXXA Unspecified fall, initial encounter; Y93.02 Activity, running; K21.9 Gastro-esophageal reflux disease without esophagitis; F31.9 Bipolar disorder, unspecified; F90.9 Attention-deficit hyperactivity disorder, unspecified type; F17.200 Nicotine dependence, unspecified, uncomplicated; Z79.899 Other long term (current) drug therapy; Z88.8 Allergy status to other drugs, medicaments and biological substances

== ENCOUNTER 2022-01-10 22:29 | Emergency (ER) | payer OTHER ==
[~2022-01-10] VITALS: Ht 162.6 cm; Wt 75.9 kg
[2022-01-10 22:30] VITALS: BP 119/59
== END 2022-01-11 04:26 | disposition left against medical advice (07) ==
LOC: M ED 22:29
DX: Z53.21 Procedure and treatment not carried out due to patient leaving prior to being seen by health care provider (principal)

== ENCOUNTER 2022-01-11 14:03 | Emergency (ER) | payer OTHER ==
[~2022-01-11] VITALS: Ht 162.6 cm; Wt 74.8 kg
[2022-01-11] MEDS ORDERED: ONDANSETRON 4MG 2ML VIAL IV ONE (19:30)
[2022-01-11] MEDS ORDERED: NS 1,000 ML IV ONE (19:30)
[2022-01-11] MEDS ORDERED: KETOROLAC 30 MG/ML 1ML VIAL IV ONE (19:30)
[2022-01-11] MEDS ORDERED: GI COCKTAIL 50ML BTL(HYOSCYAMINE/MAALOX/LIDOCAINE VISCOUS)(1:3:1) PO ONE (19:30)
[2022-01-11] MEDS ORDERED: ISOVUE-370 76% 100ML VIAL As Ordered ONE (20:05)
[2022-01-11 20:13] LABS: BASO # 0.1 10^3/uL (0.0-0.2); BASO % 1.7 % (0.0-1.0); EOS # 0.4 10^3/uL (0.0-0.5); EOS % 5.6 % (0.0-3.0); HEMATOCRIT 39.6 % (36.0-47.0); HEMOGLOBIN 12.6 g/dl (12.0-15.5); LYMPH # 1.9 10^3/uL (1.5-5.0); LYMPH % 24.3 % (24.0-44.0); MEAN CORPUSCULAR HEMOGLOBIN 27.3 pg (27.0-33.0); MEAN CORPUSCULAR HGB CONC 31.8 g/dl (32.0-36.5); MEAN CORPUSCULAR VOLUME 85.9 fl (80.0-96.0); MONO # 0.9 10^3/uL (0.0-0.8); MONO % 11.9 % (2.0-8.0); NEUTROPHILS # 4.4 10^3/uL (1.5-8.5); PLATELET COUNT, AUTOMATED 393 10^3/uL (150-450); RED BLOOD COUNT 4.61 10^6/uL (4.00-5.40); WHITE BLOOD COUNT 7.8 10^3/uL (4.0-10.0)
[2022-01-11 20:25] LABS: INR 0.86; PROTHROMBIN TIME 11.9 SECONDS (12.5-14.5)
[2022-01-11 20:26] LABS: PARTIAL THROMBOPLASTIN TIME 27.4 SECONDS (24.8-34.2)
[2022-01-11 20:47] LABS: ALBUMIN 3.9 GM/DL (3.2-5.2); BILIRUBIN,DIRECT 2.7 MG/DL (0.0-0.2); BILIRUBIN,TOTAL 3.2 MG/DL (0.2-1.0); TOTAL PROTEIN 8.3 GM/DL (6.4-8.2)
[2022-01-11] MEDS ORDERED: MORPHINE 4 MG/ML 1ML VIAL/SYRINGE IV ONE ×2 (21:30→23:20)
[2022-01-11] MEDS ORDERED: NORCO 5/325MG TABLET (HOME DOSE PACK) PO ONE (23:20)
[2022-01-11 23:45] VITALS: BP 106/72
== END 2022-01-11 23:46 | disposition home or self-care (01) ==
LOC: M ED 14:03
DX: B19.20 Unspecified viral hepatitis C without hepatic coma (principal); R94.5 Abnormal results of liver function studies; I10 Essential (primary) hypertension; K21.9 Gastro-esophageal reflux disease without esophagitis; E78.5 Hyperlipidemia, unspecified; J45.909 Unspecified asthma, uncomplicated; K80.20 Calculus of gallbladder without cholecystitis without obstruction; Z87.442 Personal history of urinary calculi; Z85.71 Personal history of Hodgkin lymphoma; F41.9 Anxiety disorder, unspecified; F32.9 Major depressive disorder, single episode, unspecified; F90.9 Attention-deficit hyperactivity disorder, unspecified type; F84.0 Autistic disorder; F43.10 Post-traumatic stress disorder, unspecified; F19.10 Other psychoactive substance abuse, uncomplicated; F12.10 Cannabis abuse, uncomplicated; F17.200 Nicotine dependence, unspecified, uncomplicated; R16.2 Hepatomegaly with splenomegaly, not elsewhere classified; K76.0 Fatty (change of) liver, not elsewhere classified; Z79.899 Other long term (current) drug therapy; Z88.8 Allergy status to other drugs, medicaments and biological substances
CPT/HCPCS: 74177; 80047; 80076; 81000; 81015; 83690; 85025; 85610; 85730; 87486; 87581; 87633; 87798; 99284; J1885; J2270; J2405; Q9967

== ENCOUNTER → 2022-01-29 | Outpatient (CLI) | payer OTHER ==
[2022-01-29 14:06] LABS: HEMATOCRIT 32.4 % (36.0-47.0); HEMOGLOBIN 9.6 g/dl (12.0-15.5); MEAN CORPUSCULAR HEMOGLOBIN 27.2 pg (27.0-33.0); MEAN CORPUSCULAR HGB CONC 29.6 g/dl (32.0-36.5); MEAN CORPUSCULAR VOLUME 91.8 fl (80.0-96.0); PLATELET COUNT, AUTOMATED 357 10^3/uL (150-450); RED BLOOD COUNT 3.53 10^6/uL (4.00-5.40); WHITE BLOOD COUNT 8.7 10^3/uL (4.0-10.0)
[2022-01-29 14:58] LABS: ALT/SGPT 115 U/L (12-78); BILIRUBIN,TOTAL 1.2 MG/DL (0.2-1.0); BLOOD UREA NITROGEN 7 MG/DL (7-18); CALCIUM LEVEL 8.6 MG/DL (8.5-10.1); CARBON DIOXIDE LEVEL 27 MEQ/L (21-32); CHLORIDE LEVEL 105 MEQ/L (98-107); CREATININE FOR GFR 0.77 MG/DL (0.55-1.30); GLOMERULAR FILTRATION RATE > 60.0 (>60); GLUCOSE, FASTING 72 MG/DL (70-100); SODIUM LEVEL 138 MEQ/L (136-145); TOTAL PROTEIN 7.5 GM/DL (6.4-8.2)
[2022-01-29 15:20] LABS: GC DNA AMPLIFICATION NEGATIVE (NEGATIVE)
[2022-01-29 15:49] LABS: HEPATITIS B SURFACE ANTIGEN NEGATIVE (NEGATIVE)
[2022-01-29 16:19] LABS: HIV 1&2 SCREEN CENTAUR NEGATIVE (NEGATIVE)
[2022-01-29 16:45] LABS: HEPATITIS C VIRUS ABY INDEX > 11.0 INDEX (<0.8)
[2022-01-29 16:59] LABS: HCG, SERUM QUALITATIVE NEGATIVE (NEGATIVE)
== END ==
LOC: M PLALAB 10:47
PROVIDERS: ATTEND Family Medicine
DX: F11.20 Opioid dependence, uncomplicated (principal)

== ENCOUNTER → 2022-02-16 | Outpatient (REF) | payer OTHER ==
[2022-02-16 17:32] LABS: BASO # 0.1 10^3/uL (0.0-0.2); BASO % 0.4 % (0.0-1.0); EOS % 0.1 % (0.0-3.0); HEMATOCRIT 36.1 % (36.0-47.0); LYMPH % 14.1 % (24.0-44.0); MEAN CORPUSCULAR HEMOGLOBIN 26.1 pg (27.0-33.0); MEAN CORPUSCULAR HGB CONC 30.5 g/dl (32.0-36.5); MEAN CORPUSCULAR VOLUME 85.7 fl (80.0-96.0); MONO # 0.6 10^3/uL (0.0-0.8); NEUTROPHILS # 11.2 10^3/uL (1.5-8.5); NEUTROPHILS % 80.5 % (36.0-66.0); PLATELET COUNT, AUTOMATED 397 10^3/uL (150-450); RED BLOOD COUNT 4.21 10^6/uL (4.00-5.40); WHITE BLOOD COUNT 13.9 10^3/uL (4.0-10.0)
[2022-02-16 19:42] LABS: ALBUMIN 3.6 G/DL (3.2-5.2); ALT/SGPT 21 U/L (7.0-40); BILIRUBIN,TOTAL 0.5 MG/DL (0.3-1.2); BLOOD UREA NITROGEN 12 MG/DL (9-23); CALCIUM LEVEL 9.3 MG/DL (8.5-10.1); CARBON DIOXIDE LEVEL 25 MMOL/L (20-31); CHLORIDE LEVEL 104 MMOL/L (98-107); CREATININE FOR GFR 0.71 MG/DL (0.55-1.30); GLOMERULAR FILTRATION RATE > 60.0 (>60); GLUCOSE, FASTING 93 MG/DL (60-100); HEPATITIS B CORE ANTIBODY IGM NEGATIVE (NEGATIVE); HEPATITIS B SURFACE ANTIBODY POSITIVE (POSITIVE); HEPATITIS B SURFACE ANTIGEN NEGATIVE (NEGATIVE); SODIUM LEVEL 138 MMOL/L (136-145); TOTAL PROTEIN 7.7 G/DL (5.7-8.2)
[2022-02-16 20:02] LABS: HEPATITIS C VIRUS ABY INDEX > 11.0 INDEX (<0.8)
== END ==
LOC: M LAB REF 16:43
PROVIDERS: ATTEND Family Medicine Addiction Medicine
DX: Z86.19 Personal history of other infectious and parasitic diseases (principal)

== ENCOUNTER 2022-03-02 12:27 | Emergency (ER) | payer OTHER ==
[~2022-03-02] VITALS: Ht 162.6 cm; Wt 72.7 kg
[2022-03-02 12:35] VITALS: BP 99/57
[2022-03-03] MEDS ORDERED: OLAN1TAB16 (10:10)
[2022-03-03] MEDS ORDERED: PARO30TA4 (10:10)
[2022-03-03] MEDS ORDERED: PRAZ2CAP (10:10)
[2022-03-03] MEDS ORDERED: PRED10TA2 PO ×2 (13:08→13:09)
== END 2022-03-02 13:33 | disposition left against medical advice (07) ==
LOC: M ED 12:27
DX: Z53.21 Procedure and treatment not carried out due to patient leaving prior to being seen by health care provider (principal)

== ENCOUNTER 2022-03-03 09:51 | Emergency (ER) | payer OTHER ==
[~2022-03-03] VITALS: Ht 162.6 cm; Wt 72.7 kg
[2022-03-03 10:04] VITALS: BP 92/55
[2022-03-03] MEDS ORDERED: OLAN1TAB16 (10:10)
[2022-03-03] MEDS ORDERED: PARO30TA4 (10:10)
[2022-03-03] MEDS ORDERED: PRAZ2CAP (10:10)
[2022-03-03] MEDS ORDERED: MORPHINE 4 MG/ML 1ML VIAL IV ONE (11:35)
[2022-03-03 12:10] LABS: HEMATOCRIT 30.1 % (36.0-47.0); HEMOGLOBIN 9.6 g/dl (12.0-15.5); MEAN CORPUSCULAR HEMOGLOBIN 26.6 pg (27.0-33.0); MEAN CORPUSCULAR HGB CONC 31.9 g/dl (32.0-36.5); MEAN CORPUSCULAR VOLUME 83.4 fl (80.0-96.0); PLATELET COUNT, AUTOMATED 284 10^3/uL (150-450); RED BLOOD COUNT 3.61 10^6/uL (4.00-5.40); WHITE BLOOD COUNT 10.5 10^3/uL (4.0-10.0)
[2022-03-03 12:46] LABS: BLOOD UREA NITROGEN 7 MG/DL (9-23); CALCIUM LEVEL 8.2 MG/DL (8.5-10.1); CARBON DIOXIDE LEVEL 24 MMOL/L (20-31); CHLORIDE LEVEL 108 MMOL/L (98-107); CREATININE FOR GFR 0.75 MG/DL (0.55-1.30); GLOMERULAR FILTRATION RATE > 60.0 (>60); GLUCOSE, FASTING 86 MG/DL (60-100); POTASSIUM SERUM 4.7 MMOL/L (3.5-5.1); SODIUM LEVEL 139 MMOL/L (136-145)
[2022-03-03] MEDS ORDERED: PRED10TA2 PO ×2 (13:08→13:09)
[2022-03-03] MEDS ORDERED: NORCO, ANEXSIA 5/325MG TABLET (HYDROcodone/ACETAMINOPHEN) PO ONE (13:20)
== END 2022-03-03 13:25 | disposition home or self-care (01) ==
LOC: M ED 09:51 → EDBD 09:51 → M ED 13:25
DX: M25.551 Pain in right hip (principal); M25.552 Pain in left hip; I10 Essential (primary) hypertension; J45.909 Unspecified asthma, uncomplicated; K21.9 Gastro-esophageal reflux disease without esophagitis; F90.9 Attention-deficit hyperactivity disorder, unspecified type; F43.10 Post-traumatic stress disorder, unspecified; B18.2 Chronic viral hepatitis C; F17.200 Nicotine dependence, unspecified, uncomplicated; Z87.442 Personal history of urinary calculi; Z88.6 Allergy status to analgesic agent; Z88.8 Allergy status to other drugs, medicaments and biological substances
CPT/HCPCS: 71046; 72131; 73521; 80048; 83880; 85027; 96374; 99284; J2270

== ENCOUNTER → 2022-03-31 | Outpatient (CLI) | payer OTHER ==
[~2022-03-31] MED LIST changes: +OLAN1TAB16; +PARO30TA4; +PRAZ2CAP
== END ==
LOC: M RAD 12:27
PROVIDERS: ATTEND Family Medicine Addiction Medicine
DX: M54.2 Cervicalgia (principal); M54.50 Low back pain, unspecified; M25.78 Osteophyte, vertebrae; Z98.890 Other specified postprocedural states

== ENCOUNTER 2022-04-17 19:13 | Emergency (ER) | payer OTHER ==
[~2022-04-17] VITALS: Ht 162.6 cm; Wt 72.7 kg
[2022-04-17 19:20] VITALS: BP 138/78
[2022-04-17] MEDS ORDERED: IBUP1TAB7 PO (19:27)
== END 2022-04-17 20:27 | disposition left against medical advice (07) ==
LOC: EDBD 19:13 → M ED 19:13
DX: Z53.21 Procedure and treatment not carried out due to patient leaving prior to being seen by health care provider (principal)

== ENCOUNTER → 2022-04-21 | Outpatient (REF) | payer OTHER ==
[2022-04-21 17:30] LABS: HEMATOCRIT 41.9 % (36.0-47.0); MEAN CORPUSCULAR HEMOGLOBIN 24.7 pg (27.0-33.0); MEAN CORPUSCULAR VOLUME 79.5 fl (80.0-96.0); PLATELET COUNT, AUTOMATED 558 10^3/uL (150-450); RED BLOOD COUNT 5.27 10^6/uL (4.00-5.40); WHITE BLOOD COUNT 11.4 10^3/uL (4.0-10.0)
[2022-04-21 18:01] LABS: THYROID STIMULATING HORMONE 2.415 uIU/ML (0.55-4.78)
[2022-04-21 19:54] LABS: ATYPICAL LYMPH 7 % (0-5); BASOPHILS 2 % (0-1); BLAST CELLS 1 % (0-0); EOSINOPHILS 4 % (0-3); LYMPHOCYTES 39 % (16-44); MONOCYTES 6 % (0-5); NEUTROPHILS 40 % (28-66); PROMYELOCYTES 1 % (0-0)
[2022-04-21 19:55] LABS: ANISOCYTOSIS 2+; PLATELET ESTIMATE INCREASED (NORMAL)
[2022-04-21 19:56] LABS: HYPOCHROMASIA 1+; MICROCYTOSIS 1+
== END ==
LOC: M LAB REF 15:58
PROVIDERS: ATTEND Family Medicine Addiction Medicine
DX: R39.9 Unspecified symptoms and signs involving the genitourinary system (principal); D50.9 Iron deficiency anemia, unspecified; R53.83 Other fatigue

== ENCOUNTER 2022-06-12 18:16 | Inpatient (IN) | payer MEDICAID, OTHER, SELFPAY ==
[~2022-06-12] VITALS: Ht 162.6 cm; Wt 72.5 kg
[2022-06-12] MEDS ORDERED: VANCOMYCIN HCL 1,000 MG, VIAL MATE ADAPTER 1 EACH in NS 250 ML IV STA (20:17)
[2022-06-12] MEDS ORDERED: ONDANSETRON 4MG 2ML VIAL IV ONE (20:20)
[2022-06-12] MEDS ORDERED: PIPERACILLIN/TAZOBACTAM SOD 3.375 GM in D5W MINI-BAG PLUS 50 ML IV ONE (20:20)
[2022-06-12] MEDS ORDERED: CLINDAMYCIN 900 MG in IV 1 EA IV ONE (20:20)
[2022-06-12] MEDS ORDERED: NS 1,000 ML IV SCH (20:20)
[2022-06-12 21:01] LABS: HEMATOCRIT 31.8 % (36.0-47.0); HEMOGLOBIN 10.5 g/dl (12.0-15.5); MEAN CORPUSCULAR HEMOGLOBIN 26.8 pg (27.0-33.0); MEAN CORPUSCULAR VOLUME 81.1 fl (80.0-96.0); PLATELET COUNT, AUTOMATED 597 10^3/uL (150-450); RED BLOOD COUNT 3.92 10^6/uL (4.00-5.40); WHITE BLOOD COUNT 28.8 10^3/uL (4.0-10.0)
[2022-06-12 21:16] LABS: INR 1.31; PARTIAL THROMBOPLASTIN TIME 32.9 SECONDS (24.8-34.2); PROTHROMBIN TIME 16.5 SECONDS (12.5-14.5)
[2022-06-12] MEDS: MORPHINE 4 MG/ML 1ML VIAL IV PRN ×2 (21:18→22:38)
[2022-06-12 21:21] LABS: AMYLASE 33 U/L (30-118)
[2022-06-12 21:22] LABS: ALBUMIN 2.4 G/DL (3.2-5.2); ALKALINE PHOSPHATASE 156 U/L (46-116); ALT/SGPT 91 U/L (7.0-40); AST/SGOT 67 U/L (<34); BILIRUBIN,DIRECT 0.1 MG/DL (<0.4); BILIRUBIN,TOTAL 0.2 MG/DL (0.3-1.2); BLOOD UREA NITROGEN 10 MG/DL (9-23); CARBON DIOXIDE LEVEL 27 MMOL/L (20-31); CHLORIDE LEVEL 99 MMOL/L (98-107); CPK CREATINE PHOSPHOKINASE 38 U/L (34-145); CREATININE FOR GFR 0.62 MG/DL (0.55-1.30); GLOMERULAR FILTRATION RATE > 60.0 (>60); GLUCOSE, FASTING 73 MG/DL (60-100); POTASSIUM SERUM 3.2 MMOL/L (3.5-5.1); SODIUM LEVEL 136 MMOL/L (136-145)
[2022-06-12 21:29] LABS: RSV AMPLIFICATION NEGATIVE (NEGATIVE)
[2022-06-12 21:30] LABS: EOSINOPHILS 1 % (0-3); LYMPHOCYTES 14 % (16-44); MONOCYTES 6 % (0-5); NEUTROPHILS 78 % (28-66); TOXIC GRANULATION 1+
[2022-06-12 21:31] LABS: PLATELET ESTIMATE INCREASED (NORMAL)
[2022-06-12 21:41] LABS: ERYTHROCYTE SEDIMENTATION RATE 94 mm/hr (0-20)
[2022-06-12 21:48] LABS: HCG, SERUM QUALITATIVE NEGATIVE (NEGATIVE)
[2022-06-12] MEDS ORDERED: PARO40TA2 PO (22:12)
[2022-06-12] MEDS ORDERED: OLAN7.5T8 PO (22:12)
[2022-06-12] MEDS ORDERED: IBUP80TA PO (22:12)
[2022-06-12] MEDS ORDERED: DOXA1TAB41 PO (22:12)
[2022-06-12] MEDS ORDERED: VITA200032 PO (22:12)
[2022-06-12] MEDS ORDERED: ALBU8.5H INH (22:12)
[2022-06-12] MEDS ORDERED: GABA800T4 PO (22:12)
[2022-06-12] MEDS ORDERED: FOLI1TAB11 PO (22:12)
[2022-06-12] MEDS ORDERED: BUDE10.2 INH (22:15)
[2022-06-12] MEDS ORDERED: THERTAB52 PO (22:15)
[2022-06-12] MEDS ORDERED: PANT-23 PO (22:15)
[2022-06-12] MEDS ORDERED: TIZA10TA PO (22:16)
[2022-06-12] MEDS ORDERED: HOME MED LIST COMPLETE! XX SCH (22:20)
[2022-06-12] MEDS ORDERED: VANCOMYCIN HCL 1,000 MG in D5W 250 ML IV SCH (23:35)
[2022-06-12] MEDS ORDERED: ACETAMINOPHEN TAB 650MG DOSE (2X325MG) PO PRN (23:35)
[2022-06-13] MEDS ORDERED: NS 1,000 ML IV ONE
[2022-06-13] MEDS: NS 1,000 ML IV SCH ×3 (00:01→21:44)
[2022-06-13 00:49] VITALS: BP 128/82
[2022-06-13] MEDS ORDERED: POTASSIUM CHLORIDE 10% LIQ 20MEQ/15ML UDC PO ONE (01:35)
[2022-06-13 06:00] VITALS: BP 123/77
[2022-06-13] MEDS ORDERED: VANCOMYCIN HCL 1,000 MG, VIAL MATE ADAPTER 1 EACH in D5W 250 ML IV SCH (06:00)
[2022-06-13 07:40] LABS: BLOOD UREA NITROGEN 9 MG/DL (9-23); CALCIUM LEVEL 7.4 MG/DL (8.5-10.1); CARBON DIOXIDE LEVEL 25 MMOL/L (20-31); CHLORIDE LEVEL 106 MMOL/L (98-107); CREATININE FOR GFR 0.67 MG/DL (0.55-1.30); GLOMERULAR FILTRATION RATE > 60.0 (>60); GLUCOSE, FASTING 109 MG/DL (60-100); POTASSIUM SERUM 4.2 MMOL/L (3.5-5.1); SODIUM LEVEL 139 MMOL/L (136-145)
[2022-06-13] MEDS: SYMBICORT 160/4.5MCG INHALER 6GM INH SCH ×2 (08:00→20:20)
[2022-06-13] MEDS ORDERED: NORCO, ANEXSIA 5/325MG TABLET (HYDROcodone/ACETAMINOPHEN) PO PRN (08:55)
[2022-06-13] MEDS ORDERED: ALBUTEROL 90 MCG/ACT 8GM HFA INHALER INH PRN (09:00)
[2022-06-13 09:27] LABS: HEMATOCRIT 29.2 % (36.0-47.0); HEMOGLOBIN 9.4 g/dl (12.0-15.5); MEAN CORPUSCULAR HEMOGLOBIN 26.8 pg (27.0-33.0); MEAN CORPUSCULAR HGB CONC 32.2 g/dl (32.0-36.5); MEAN CORPUSCULAR VOLUME 83.2 fl (80.0-96.0); PLATELET COUNT, AUTOMATED 541 10^3/uL (150-450); RED BLOOD COUNT 3.51 10^6/uL (4.00-5.40); WHITE BLOOD COUNT 16.9 10^3/uL (4.0-10.0)
[2022-06-13 10:02] LABS: ATYPICAL LYMPH 1 % (0-5); BASOPHILS 2 % (0-1); EOSINOPHILS 4 % (0-3); LYMPHOCYTES 13 % (16-44); METAMYELOCYTES 2 % (0-0); MONOCYTES 8 % (0-5); MYELOCYTES 1 % (0-0); NEUTROPHILS 68 % (28-66)
[2022-06-13 10:04] LABS: PLATELET ESTIMATE INCREASED (NORMAL)
[2022-06-13 10:05] LABS: ANISOCYTOSIS 1+; POLYCHROMASIA 1+
[2022-06-13] MEDS: PANTOPRAZOLE 40MG TAB (PROTONIX) PO SCH ×2 (10:43→20:02)
[2022-06-13] MEDS: GABAPENTIN 400MG CAP PO SCH ×3 (10:43→20:02)
[2022-06-13] MEDS: DOXAZOSIN MESYLATE 1 MG TAB PO SCH ×2 (10:45→20:10)
[2022-06-13] MEDS ORDERED: PERCOCET 5MG/325MG TAB PO PRN ×2 (11:00→12:45)
[2022-06-13] MEDS ORDERED: MIDAZOLAM INJ 2MG/2ML VIAL As Ordered ONE (11:47)
[2022-06-13] MEDS ORDERED: METOCLOPRAMIDE INJ 10MG/2ML VIAL As Ordered ONE (11:47)
[2022-06-13] MEDS ORDERED: ONDANSETRON 4MG 2ML VIAL As Ordered ONE (11:47)
[2022-06-13] MEDS ORDERED: LIDOCAINE 2% 100MG/5ML SDV (FOR ANES.) As Ordered ONE (11:47)
[2022-06-13] MEDS ORDERED: fentaNYL 100 MCG/2 ML INJECTION As Ordered ONE (11:47)
[2022-06-13] MEDS ORDERED: propofoL 200 MG/20 ML VIAL As Ordered ONE (11:47)
[2022-06-13] MEDS ORDERED: BUPIVACAINE HCL 0.25% 30ML VIAL As Ordered ONE (12:03)
[2022-06-13] MEDS ORDERED: MORPHINE 2 MG/ML 1ML VIAL IV PRN (12:05)
[2022-06-13] MEDS ORDERED: LR 1,000 ML IV SCH (12:05)
[2022-06-13] MEDS ORDERED: ONDANSETRON 4MG 2ML VIAL IV PRN (12:05)
[2022-06-13] MEDS ORDERED: oxyCODONE 5MG TAB PO PRN (12:05)
[2022-06-13] MEDS ORDERED: DESFLURANE 240 ML INHALANT As Ordered ONE (12:17)
[2022-06-13] MEDS: fentaNYL 100 MCG/2 ML INJECTION IV PRN ×4 (12:42→13:01)
[2022-06-13 14:00] VITALS: BP 128/79
[2022-06-13] MEDS: PIPERACILLIN/TAZOBACTAM SOD 3.375 GM in D5W MINI-BAG PLUS 50 ML IV SCH ×2 (15:13→20:01)
[2022-06-13] MEDS: VANCOMYCIN HCL 1,000 MG, VIAL MATE ADAPTER 1 EACH in D5W 250 ML IV SCH ×2 (16:28→23:54)
[2022-06-13] MEDS: PERCOCET 5MG/325MG TAB PO PRN ×2 (17:36→21:46)
[2022-06-13] MEDS: PARoxetine 20MG TABLET PO SCH (20:02)
[2022-06-13] MEDS: OLANZapine 2.5MG TABLET PO SCH (20:02)
[2022-06-13 21:25] VITALS: BP 148/89
[2022-06-13] MEDS: tiZANidine 4 MG TAB PO PRN (21:44)
[2022-06-13] MEDS: HEPARIN SOD (PORCINE) 5000UNITS/ML 1ML VIAL/SYRINGE SC SCH (21:46)
[2022-06-14] MEDS: PIPERACILLIN/TAZOBACTAM SOD 3.375 GM in D5W MINI-BAG PLUS 50 ML IV SCH ×4 (01:10→21:13)
[2022-06-14] MEDS: PERCOCET 5MG/325MG TAB PO PRN ×5 (02:57→21:14)
[2022-06-14] MEDS: HEPARIN SOD (PORCINE) 5000UNITS/ML 1ML VIAL/SYRINGE SC SCH ×3 (06:23→21:15)
[2022-06-14] MEDS: NS 1,000 ML IV SCH (06:23)
[2022-06-14 06:50] VITALS: BP 114/63
[2022-06-14] MEDS: SYMBICORT 160/4.5MCG INHALER 6GM INH SCH ×2 (07:34→20:01)
[2022-06-14] MEDS: VANCOMYCIN HCL 1,000 MG, VIAL MATE ADAPTER 1 EACH in D5W 250 ML IV SCH (07:58)
[2022-06-14] MEDS: GABAPENTIN 400MG CAP PO SCH ×3 (07:59→21:08)
[2022-06-14] MEDS: DOXAZOSIN MESYLATE 1 MG TAB PO SCH ×2 (08:01→21:13)
[2022-06-14] MEDS: PANTOPRAZOLE 40MG TAB (PROTONIX) PO SCH ×2 (08:01→21:08)
[2022-06-14] MEDS: tiZANidine 4 MG TAB PO PRN (08:06)
[2022-06-14] MEDS ORDERED: ONDANSETRON 4MG TAB PO PRN (10:30)
[2022-06-14 14:00] VITALS: BP 124/73
[2022-06-14 14:04] LABS: BASO # 0.1 10^3/uL (0.0-0.2); BASO % 0.6 % (0.0-1.0); EOS # 0.1 10^3/uL (0.0-0.5); EOS % 0.8 % (0.0-3.0); HEMATOCRIT 29.9 % (36.0-47.0); HEMOGLOBIN 9.2 g/dl (12.0-15.5); LYMPH # 2.9 10^3/uL (1.5-5.0); LYMPH % 18.7 % (24.0-44.0); MEAN CORPUSCULAR HEMOGLOBIN 26.4 pg (27.0-33.0); MEAN CORPUSCULAR HGB CONC 30.8 g/dl (32.0-36.5); MEAN CORPUSCULAR VOLUME 85.9 fl (80.0-96.0); MONO % 6.2 % (2.0-8.0); NEUTROPHILS # 10.6 10^3/uL (1.5-8.5); NEUTROPHILS % 68.7 % (36.0-66.0); PLATELET COUNT, AUTOMATED 561 10^3/uL (150-450); RED BLOOD COUNT 3.48 10^6/uL (4.00-5.40); WHITE BLOOD COUNT 15.4 10^3/uL (4.0-10.0)
[2022-06-14 21:12] VITALS: BP 141/76
[2022-06-14] MEDS: OLANZapine 2.5MG TABLET PO SCH (21:13)
[2022-06-14] MEDS: PARoxetine 20MG TABLET PO SCH (21:15)
[2022-06-15] MEDS: PIPERACILLIN/TAZOBACTAM SOD 3.375 GM in D5W MINI-BAG PLUS 50 ML IV SCH ×2 (01:39→06:58)
[2022-06-15] MEDS: PERCOCET 5MG/325MG TAB PO PRN ×5 (01:40→22:56)
[2022-06-15 06:08] VITALS: BP 140/83
[2022-06-15] MEDS: HEPARIN SOD (PORCINE) 5000UNITS/ML 1ML VIAL/SYRINGE SC SCH ×3 (06:59→22:52)
[2022-06-15] MEDS: SYMBICORT 160/4.5MCG INHALER 6GM INH SCH ×2 (07:57→19:24)
[2022-06-15] MEDS ORDERED: VANCOMYCIN ORAL SOL 250MG/5ML ORAL SYRINGE PO SCH ×2 (09:00→21:00)
[2022-06-15] MEDS: PANTOPRAZOLE 40MG TAB (PROTONIX) PO SCH (09:49)
[2022-06-15] MEDS: DOXAZOSIN MESYLATE 1 MG TAB PO SCH ×2 (09:49→22:51)
[2022-06-15] MEDS: GABAPENTIN 400MG CAP PO SCH ×3 (09:49→22:53)
[2022-06-15 12:21] LABS: BASO # 0.2 10^3/uL (0.0-0.2); BASO % 1.6 % (0.0-1.0); EOS # 0.4 10^3/uL (0.0-0.5); EOS % 3.7 % (0.0-3.0); HEMATOCRIT 30.6 % (36.0-47.0); HEMOGLOBIN 9.7 g/dl (12.0-15.5); LYMPH # 3.5 10^3/uL (1.5-5.0); LYMPH % 29.5 % (24.0-44.0); MEAN CORPUSCULAR HEMOGLOBIN 26.2 pg (27.0-33.0); MEAN CORPUSCULAR HGB CONC 31.7 g/dl (32.0-36.5); MEAN CORPUSCULAR VOLUME 82.7 fl (80.0-96.0); MONO # 0.7 10^3/uL (0.0-0.8); NEUTROPHILS # 5.8 10^3/uL (1.5-8.5); NEUTROPHILS % 49.2 % (36.0-66.0); PLATELET COUNT, AUTOMATED 642 10^3/uL (150-450); WHITE BLOOD COUNT 11.8 10^3/uL (4.0-10.0)
[2022-06-15 12:46] LABS: BLOOD UREA NITROGEN < 5 MG/DL (9-23); CALCIUM LEVEL 8.6 MG/DL (8.5-10.1); CARBON DIOXIDE LEVEL 26 MMOL/L (20-31); CHLORIDE LEVEL 108 MMOL/L (98-107); CREATININE FOR GFR 0.78 MG/DL (0.55-1.30); GLOMERULAR FILTRATION RATE > 60.0 (>60); GLUCOSE, FASTING 99 MG/DL (60-100); POTASSIUM SERUM 3.5 MMOL/L (3.5-5.1); SODIUM LEVEL 143 MMOL/L (136-145)
[2022-06-15] MEDS: cefTRIAXone SOD 2 GM in D5W MINI-BAG PLUS 50 ML IV SCH (13:04)
[2022-06-15 14:31] VITALS: BP 158/95
[2022-06-15 18:40] LABS: CLOSTRIDIUM DIFFICILE PCR POSITIVE (NEGATIVE)
[2022-06-15] MEDS ORDERED: FIDAXOMICIN 200 MG TAB (DIFICID) PO SCH (21:00)
[2022-06-15 22:45] VITALS: BP 160/95
[2022-06-15] MEDS: FIDAXOMICIN 200 MG TAB (DIFICID) PO SCH (22:51)
[2022-06-15] MEDS: PARoxetine 20MG TABLET PO SCH (22:53)
[2022-06-15] MEDS: FAMOTIDINE 20 MG TAB PO SCH (22:54)
[2022-06-15] MEDS: OLANZapine 2.5MG TABLET PO SCH (22:54)
[2022-06-16 00:04] VITALS: BP 159/94
[2022-06-16] MEDS: tiZANidine 4 MG TAB PO PRN ×2 (00:25→20:07)
[2022-06-16] MEDS: PERCOCET 5MG/325MG TAB PO PRN ×4 (04:10→20:09)
[2022-06-16 05:55] VITALS: BP 150/86
[2022-06-16] MEDS: HEPARIN SOD (PORCINE) 5000UNITS/ML 1ML VIAL/SYRINGE SC SCH ×3 (05:57→22:00)
[2022-06-16 06:52] LABS: BASO # 0.1 10^3/uL (0.0-0.2); BASO % 1.1 % (0.0-1.0); EOS # 0.5 10^3/uL (0.0-0.5); EOS % 4.2 % (0.0-3.0); HEMATOCRIT 30.7 % (36.0-47.0); HEMOGLOBIN 9.7 g/dl (12.0-15.5); LYMPH # 3.7 10^3/uL (1.5-5.0); LYMPH % 28.7 % (24.0-44.0); MEAN CORPUSCULAR HEMOGLOBIN 25.9 pg (27.0-33.0); MEAN CORPUSCULAR HGB CONC 31.6 g/dl (32.0-36.5); MEAN CORPUSCULAR VOLUME 82.1 fl (80.0-96.0); MONO # 0.9 10^3/uL (0.0-0.8); MONO % 6.9 % (2.0-8.0); NEUTROPHILS # 6.4 10^3/uL (1.5-8.5); NEUTROPHILS % 50.1 % (36.0-66.0); PLATELET COUNT, AUTOMATED 595 10^3/uL (150-450); RED BLOOD COUNT 3.74 10^6/uL (4.00-5.40); WHITE BLOOD COUNT 12.7 10^3/uL (4.0-10.0)
[2022-06-16 07:24] LABS: BLOOD UREA NITROGEN < 5 MG/DL (9-23); CALCIUM LEVEL 8.3 MG/DL (8.5-10.1); CARBON DIOXIDE LEVEL 28 MMOL/L (20-31); CHLORIDE LEVEL 106 MMOL/L (98-107); CREATININE FOR GFR 0.75 MG/DL (0.55-1.30); GLOMERULAR FILTRATION RATE > 60.0 (>60); GLUCOSE, FASTING 101 MG/DL (60-100); POTASSIUM SERUM 3.2 MMOL/L (3.5-5.1); SODIUM LEVEL 142 MMOL/L (136-145)
[2022-06-16] MEDS: SYMBICORT 160/4.5MCG INHALER 6GM INH SCH ×2 (07:43→19:42)
[2022-06-16] MEDS ORDERED: POTASSIUM CHLORIDE 10MEQ SR TABLET PO ONE ×2 (08:05→10:30)
[2022-06-16] MEDS: FAMOTIDINE 20 MG TAB PO SCH ×2 (09:04→20:08)
[2022-06-16] MEDS: FIDAXOMICIN 200 MG TAB (DIFICID) PO SCH ×2 (09:05→20:07)
[2022-06-16] MEDS: GABAPENTIN 400MG CAP PO SCH ×3 (09:07→20:08)
[2022-06-16] MEDS: DOXAZOSIN MESYLATE 1 MG TAB PO SCH ×3 (09:10→20:07)
[2022-06-16] MEDS: cefTRIAXone SOD 2 GM in D5W MINI-BAG PLUS 50 ML IV SCH (12:49)
[2022-06-16 14:00] VITALS: BP 146/93
[2022-06-16 20:06] VITALS: BP 148/90
[2022-06-16] MEDS: OLANZapine 2.5MG TABLET PO SCH (20:07)
[2022-06-16] MEDS: PARoxetine 20MG TABLET PO SCH (20:08)
[2022-06-17] MEDS: HEPARIN SOD (PORCINE) 5000UNITS/ML 1ML VIAL/SYRINGE SC SCH ×3 (05:26→22:01)
[2022-06-17] MEDS: PERCOCET 5MG/325MG TAB PO PRN ×4 (05:26→21:56)
[2022-06-17 06:13] LABS: HEMATOCRIT 30.7 % (36.0-47.0); HEMOGLOBIN 9.8 g/dl (12.0-15.5); MEAN CORPUSCULAR HEMOGLOBIN 26.6 pg (27.0-33.0); MEAN CORPUSCULAR HGB CONC 31.9 g/dl (32.0-36.5); MEAN CORPUSCULAR VOLUME 83.4 fl (80.0-96.0); PLATELET COUNT, AUTOMATED 612 10^3/uL (150-450); RED BLOOD COUNT 3.68 10^6/uL (4.00-5.40)
[2022-06-17 06:40] LABS: BLOOD UREA NITROGEN 8 MG/DL (9-23); CALCIUM LEVEL 9.1 MG/DL (8.5-10.1); CARBON DIOXIDE LEVEL 26 MMOL/L (20-31); CHLORIDE LEVEL 105 MMOL/L (98-107); CREATININE FOR GFR 0.75 MG/DL (0.55-1.30); GLOMERULAR FILTRATION RATE > 60.0 (>60); GLUCOSE, FASTING 144 MG/DL (60-100); MAGNESIUM LEVEL 1.5 MG/DL (1.8-2.4); PHOSPHORUS LEVEL 4.9 MG/DL (2.5-4.9); SODIUM LEVEL 141 MMOL/L (136-145)
[2022-06-17 06:41] VITALS: BP 160/98
[2022-06-17] MEDS: SYMBICORT 160/4.5MCG INHALER 6GM INH SCH ×2 (07:49→20:06)
[2022-06-17] MEDS ORDERED: FAMO20TA PO (08:51)
[2022-06-17] MEDS ORDERED: AMOX875T2 PO (08:51)
[2022-06-17] MEDS ORDERED: PERCOCET PO (08:51)
[2022-06-17] MEDS ORDERED: VANC125C3 PO (08:51)
[2022-06-17] MEDS: FIDAXOMICIN 200 MG TAB (DIFICID) PO SCH ×2 (08:55→21:56)
[2022-06-17] MEDS: tiZANidine 4 MG TAB PO PRN (08:55)
[2022-06-17] MEDS: FAMOTIDINE 20 MG TAB PO SCH (08:55)
[2022-06-17] MEDS ORDERED: FIDA200TA PO (08:55)
[2022-06-17] MEDS: GABAPENTIN 400MG CAP PO SCH ×3 (08:55→21:53)
[2022-06-17] MEDS: DOXAZOSIN MESYLATE 1 MG TAB PO SCH ×2 (09:50→21:55)
[2022-06-17 14:00] VITALS: BP 120/69
[2022-06-17] MEDS: cefTRIAXone SOD 2 GM in D5W MINI-BAG PLUS 50 ML IV SCH (14:08)
[2022-06-17] MEDS ORDERED: PANTOPRAZOLE 40MG TAB (PROTONIX) PO ONE (15:20)
[2022-06-17] MEDS ORDERED: MAALOX 30 ML SUSP *UDC PO ONE (15:20)
[2022-06-17] MEDS ORDERED: MAGNESIUM OXIDE 400MG TAB (MAG-OX) PO ONE (15:30)
[2022-06-17] MEDS ORDERED: PERCOCET 5MG/325MG TAB PO PRN (15:30)
[2022-06-17] MEDS ORDERED: PERCOCET 5MG/325MG TAB PO ONE (18:15)
[2022-06-17] MEDS: AUGMENTIN 875 MG TAB PO SCH (21:55)
[2022-06-17] MEDS: PARoxetine 20MG TABLET PO SCH (21:56)
[2022-06-17] MEDS: OLANZapine 2.5MG TABLET PO SCH (21:57)
[2022-06-18 03:34] VITALS: BP 123/84
[2022-06-18] MEDS: PERCOCET 5MG/325MG TAB PO PRN ×2 (06:07→13:16)
[2022-06-18] MEDS: HEPARIN SOD (PORCINE) 5000UNITS/ML 1ML VIAL/SYRINGE SC SCH ×2 (06:07→13:15)
[2022-06-18] MEDS: SYMBICORT 160/4.5MCG INHALER 6GM INH SCH (07:42)
[2022-06-18] MEDS ORDERED: PANTOPRAZOLE 40MG TAB (PROTONIX) PO SCH ×2 (09:00)
[2022-06-18] MEDS: AUGMENTIN 875 MG TAB PO SCH (09:46)
[2022-06-18 09:47] VITALS: BP 123/84
[2022-06-18] MEDS: DOXAZOSIN MESYLATE 1 MG TAB PO SCH (09:47)
[2022-06-18] MEDS: FIDAXOMICIN 200 MG TAB (DIFICID) PO SCH ×2 (09:47→15:29)
[2022-06-18] MEDS: GABAPENTIN 400MG CAP PO SCH ×2 (09:48→15:30)
[2022-06-18] MEDS: tiZANidine 4 MG TAB PO PRN (09:55)
[2022-06-18] MEDS ORDERED: VANC1CAP7 PO (13:26)
[2022-06-18] MEDS ORDERED: VANC125C3 PO ×2 (13:32→14:04)
[2022-06-24] MEDS ORDERED: VANCOMYCIN ORAL SOL 250MG/5ML ORAL SYRINGE PO SCH (09:00)
== END 2022-06-18 15:40 | disposition home health service (06) | DRG 720 ==
LOC: EDBD 18:16 → M ED 18:16 → M ED INP 23:32 → M MS5PR 06-13 00:25
PROVIDERS: ADMIT Internal Medicine; ATTEND Internal Medicine Nephrology
PROC: 0HDLXZZ Extraction of Left Lower Leg Skin, External Approach (ICD-10-PCS; 2022-06-13)
PROC: 0HDNXZZ Extraction of Left Foot Skin, External Approach (ICD-10-PCS; principal; 2022-06-13 10:30)
PROC: B246ZZZ Ultrasonography of Right and Left Heart (ICD-10-PCS; 2022-06-14)
DX: A40.9 Streptococcal sepsis, unspecified (principal); I96 Gangrene, not elsewhere classified; A04.72 Enterocolitis due to Clostridium difficile, not specified as recurrent; I11.0 Hypertensive heart disease with heart failure; L02.219 Cutaneous abscess of trunk, unspecified; K74.60 Unspecified cirrhosis of liver; K76.0 Fatty (change of) liver, not elsewhere classified; J45.909 Unspecified asthma, uncomplicated; K21.9 Gastro-esophageal reflux disease without esophagitis; L02.415 Cutaneous abscess of right lower limb; L03.116 Cellulitis of left lower limb; F17.210 Nicotine dependence, cigarettes, uncomplicated; J44.9 Chronic obstructive pulmonary disease, unspecified; F39 Unspecified mood [affective] disorder; M54.9 Dorsalgia, unspecified; G89.29 Other chronic pain; D64.9 Anemia, unspecified; Z79.899 Other long term (current) drug therapy; Z88.8 Allergy status to other drugs, medicaments and biological substances; Z20.822 Contact with and (suspected) exposure to COVID-19; Z85.41 Personal history of malignant neoplasm of cervix uteri; Z90.79 Acquired absence of other genital organ(s)

== ENCOUNTER 2022-06-21 14:48 | Inpatient (IN) | payer MEDICAID, SELFPAY ==
[~2022-06-21] VITALS: Ht 162.6 cm; Wt 74.5 kg
[~2022-06-21 14:48] MED LIST changes: +ALBU8.5H INH; +AMOX875T2 PO; +BUDE10.2 INH; +DOXA1TAB41 PO; +FAMO20TA PO; +FIDA200TA PO; +IBUP80TA PO; +OLAN7.5T8 PO; +PARO40TA2 PO; +PERCOCET PO; +THERTAB52 PO; +VANC125C3 PO; +VANC1CAP7 PO; +VITA200032 PO
[2022-06-21 17:03] LABS: BASO # 0.1 10^3/uL (0.0-0.2); BASO % 0.7 % (0.0-1.0); EOS # 0.4 10^3/uL (0.0-0.5); HEMATOCRIT 36.2 % (36.0-47.0); HEMOGLOBIN 11.6 g/dl (12.0-15.5); LYMPH # 3.5 10^3/uL (1.5-5.0); LYMPH % 28.4 % (24.0-44.0); MEAN CORPUSCULAR HEMOGLOBIN 26.9 pg (27.0-33.0); MONO # 0.7 10^3/uL (0.0-0.8); MONO % 5.3 % (2.0-8.0); NEUTROPHILS # 7.6 10^3/uL (1.5-8.5); NEUTROPHILS % 61.8 % (36.0-66.0); PLATELET COUNT, AUTOMATED 750 10^3/uL (150-450); RED BLOOD COUNT 4.31 10^6/uL (4.00-5.40); WHITE BLOOD COUNT 12.3 10^3/uL (4.0-10.0)
[2022-06-21 17:23] LABS: ALBUMIN 3.3 G/DL (3.2-5.2); ALKALINE PHOSPHATASE 136 U/L (46-116); ALT/SGPT 36 U/L (7.0-40); AST/SGOT 32 U/L (<34); BILIRUBIN,DIRECT < 0.1 MG/DL (<0.4); BILIRUBIN,TOTAL 0.3 MG/DL (0.3-1.2); BLOOD UREA NITROGEN 14 MG/DL (9-23); CALCIUM LEVEL 9.6 MG/DL (8.5-10.1); CARBON DIOXIDE LEVEL 26 MMOL/L (20-31); CHLORIDE LEVEL 100 MMOL/L (98-107); CREATININE FOR GFR 0.87 MG/DL (0.55-1.30); GLOMERULAR FILTRATION RATE > 60.0 (>60); GLUCOSE, FASTING 92 MG/DL (60-100); POTASSIUM SERUM 4.5 MMOL/L (3.5-5.1); SODIUM LEVEL 136 MMOL/L (136-145); TOTAL PROTEIN 8.4 G/DL (5.7-8.2)
[2022-06-21 17:52] LABS: INR 0.96; PARTIAL THROMBOPLASTIN TIME 26.8 SECONDS (24.8-34.2)
[2022-06-21 17:56] LABS: D-DIMER QUANT 1583.55 ng/ml (<500)
[2022-06-21 18:44] LABS: ERYTHROCYTE SEDIMENTATION RATE 98 mm/hr (0-20)
[2022-06-21] MEDS ORDERED: VANCOMYCIN HCL 1,500 MG in IV FLUID PLACE HOLDER 1 EA IV ONE (19:25)
[2022-06-21] MEDS ORDERED: MORPHINE 4 MG/ML 1ML VIAL IV ONE ×2 (19:25→23:35)
[2022-06-21] MEDS ORDERED: VANCOMYCIN HCL 750 MG, VIAL MATE ADAPTER 1 EACH in D5W 250 ML IV ONE ×2 (19:30→20:30)
[2022-06-21 20:25] LABS: RSV AMPLIFICATION NEGATIVE (NEGATIVE)
[2022-06-21] MEDS ORDERED: PARoxetine 20MG TABLET PO SCH (21:00)
[2022-06-21] MEDS ORDERED: OLANZapine 2.5MG TABLET PO SCH (21:00)
[2022-06-21] MEDS ORDERED: OXYC1TAB23 PO (23:33)
[2022-06-21] MEDS ORDERED: VANC125C3 PO (23:33)
[2022-06-21] MEDS ORDERED: AMOX875T2 PO (23:33)
[2022-06-21] MEDS ORDERED: IBUP1TAB7 PO (23:33)
[2022-06-21] MEDS ORDERED: TIZA10TA PO (23:33)
[2022-06-21] MEDS ORDERED: VITA200044 PO (23:33)
[2022-06-21] MEDS ORDERED: VITMTA PO (23:33)
[2022-06-21] MEDS ORDERED: HOME MED LIST COMPLETE! XX SCH (23:35)
[2022-06-22] MEDS ORDERED: tiZANidine 4 MG TAB PO PRN (00:30)
[2022-06-22] MEDS ORDERED: ACETAMINOPHEN TAB 650MG DOSE (2X325MG) PO PRN (00:30)
[2022-06-22] MEDS ORDERED: D5W IV SCH (00:30)
[2022-06-22] MEDS ORDERED: ALBUTEROL 90 MCG/ACT 8GM HFA INHALER INH PRN (00:30)
[2022-06-22] MEDS ORDERED: VANCOMYCIN HCL IV SCH (00:30)
[2022-06-22] MEDS: NS 1,000 ML IV SCH ×2 (01:08→08:15)
[2022-06-22] MEDS: GABAPENTIN 400MG CAP PO SCH ×2 (02:32→08:15)
[2022-06-22] MEDS: PANTOPRAZOLE 40MG TAB (PROTONIX) PO SCH ×2 (02:32→08:15)
[2022-06-22] MEDS: HEPARIN SOD (PORCINE) 5000UNITS/ML 1ML VIAL/SYRINGE SC SCH ×2 (05:56→14:00)
[2022-06-22 06:29] LABS: HEMATOCRIT 32.6 % (36.0-47.0); HEMOGLOBIN 10.2 g/dl (12.0-15.5); MEAN CORPUSCULAR HEMOGLOBIN 26.6 pg (27.0-33.0); MEAN CORPUSCULAR HGB CONC 31.3 g/dl (32.0-36.5); MEAN CORPUSCULAR VOLUME 84.9 fl (80.0-96.0); RED BLOOD COUNT 3.84 10^6/uL (4.00-5.40); WHITE BLOOD COUNT 10.3 10^3/uL (4.0-10.0)
[2022-06-22] MEDS ORDERED: PERCOCET 5MG/325MG TAB PO PRN (06:35)
[2022-06-22 06:54] LABS: BLOOD UREA NITROGEN 13 MG/DL (9-23); CALCIUM LEVEL 8.4 MG/DL (8.5-10.1); CARBON DIOXIDE LEVEL 27 MMOL/L (20-31); CHLORIDE LEVEL 102 MMOL/L (98-107); CREATININE FOR GFR 0.88 MG/DL (0.55-1.30); GLOMERULAR FILTRATION RATE > 60.0 (>60); GLUCOSE, FASTING 92 MG/DL (60-100); POTASSIUM SERUM 4.1 MMOL/L (3.5-5.1); SODIUM LEVEL 138 MMOL/L (136-145)
[2022-06-22 06:58] LABS: PLATELET COUNT, AUTOMATED 584 10^3/uL (150-450)
[2022-06-22 07:02] LABS: ATYPICAL LYMPH 4 % (0-5); BASOPHILS 2 % (0-1); EOSINOPHILS 6 % (0-3); LYMPHOCYTES 34 % (16-44); MONOCYTES 4 % (0-5); NEUTROPHILS 50 % (28-66)
[2022-06-22 07:03] LABS: ANISOCYTOSIS 1+; HYPOCHROMASIA 1+; PLATELET ESTIMATE NORMAL (NORMAL)
[2022-06-22 07:04] LABS: SMUDGE CELLS 1+
[2022-06-22 07:58] LABS: VANCOMYCIN RANDOM 15.4 UG/ML
[2022-06-22] MEDS ORDERED: VANCOMYCIN HCL 1,000 MG, VIAL MATE ADAPTER 1 EACH in D5W 250 ML IV SCH (08:00)
[2022-06-22] MEDS ORDERED: SYMBICORT 160/4.5MCG INHALER 6GM INH SCH (08:00)
[2022-06-22] MEDS ORDERED: VANCOMYCIN ORAL SOL 250MG/5ML ORAL SYRINGE PO SCH ×2 (09:00)
[2022-06-22] MEDS ORDERED: DOXAZOSIN MESYLATE 1 MG TAB PO SCH (09:00)
[2022-06-22 10:10] VITALS: BP 143/89
[2022-06-22] MEDS ORDERED: KETOROLAC 30 MG/ML 1ML VIAL IV PRN (11:10)
[2022-06-22] MEDS ORDERED: MORPHINE 4 MG/ML 1ML VIAL IV PRN (11:10)
[2022-06-22] MEDS ORDERED: MORPHINE 2 MG/ML 1ML VIAL IV PRN (11:10)
[2022-06-22 11:49] VITALS: BP 142/86
[2022-06-22] MEDS ORDERED: AMOX875T2 PO (11:54)
[2022-06-22] MEDS ORDERED: VANC125C3 PO (11:54)
[2022-06-22] MEDS ORDERED: ACET32TAB PO (11:54)
[2022-06-22] MEDS ORDERED: OXYC1TAB23 PO (11:56)
[2022-06-22] MEDS ORDERED: ACETAMINOPHEN 325 MG TAB PO SCH (12:00)
== END 2022-06-22 15:45 | disposition home health service (06) | DRG 380 ==
LOC: M ED 14:48 → EDBD 14:48 → M ED INP 22:59 → ENRESERV 06-22 08:51 → M MS5PR 06-22 10:10
PROVIDERS: ADMIT Internal Medicine; ATTEND Student in an Organized Health Care Education/Training Program
DX: L97.329 Non-pressure chronic ulcer of left ankle with unspecified severity (principal); F11.20 Opioid dependence, uncomplicated; I10 Essential (primary) hypertension; K21.9 Gastro-esophageal reflux disease without esophagitis; J45.909 Unspecified asthma, uncomplicated; F32.A Depression, unspecified; F17.210 Nicotine dependence, cigarettes, uncomplicated; Z88.8 Allergy status to other drugs, medicaments and biological substances; Z79.899 Other long term (current) drug therapy

== ENCOUNTER 2022-11-28 13:58 | Emergency (ER) | payer OTHER ==
[~2022-11-28] VITALS: Ht 160 cm; Wt 61.4 kg
[~2022-11-28 13:58] MED LIST changes: +ACET32TAB PO; -GABA-283 PO; +GABA-284 PO; +OXYC1TAB23 PO; +VITA200044 PO
[2022-11-28 14:05] VITALS: BP 137/73; TEMP 97.2; O2SAT 98
== END 2022-11-28 15:28 | disposition left against medical advice (07) ==
LOC: M ED 13:58
DX: Z53.21 Procedure and treatment not carried out due to patient leaving prior to being seen by health care provider (principal)

== ENCOUNTER 2023-01-27 09:40 | Emergency (ER) | payer OTHER ==
[~2023-01-27] VITALS: Ht 160 cm; Wt 64.5 kg
[2023-01-27 09:46] VITALS: BP 145/92; TEMP 97.5; O2SAT 97
[2023-01-27] MEDS ORDERED: traMADol 50 MG TAB PO ONE (11:20)
== END 2023-01-27 11:40 | disposition home or self-care (01) ==
LOC: M ED 09:40
DX: S63.501A Unspecified sprain of right wrist, initial encounter (principal); S50.11XA Contusion of right forearm, initial encounter; F17.200 Nicotine dependence, unspecified, uncomplicated; Z88.5 Allergy status to narcotic agent; Z88.8 Allergy status to other drugs, medicaments and biological substances; Y04.0XXA Assault by unarmed brawl or fight, initial encounter; Y92.009 Unspecified place in unspecified non-institutional (private) residence as the place of occurrence of the external cause; Y93.89 Activity, other specified; Y99.9 Unspecified external cause status; Z79.52 Long term (current) use of systemic steroids; Z79.891 Long term (current) use of opiate analgesic; Z79.810 Long term (current) use of selective estrogen receptor modulators (SERMs); Z79.899 Other long term (current) drug therapy

== ENCOUNTER 2023-02-25 14:22 | Emergency (ER) | payer OTHER | END 2023-02-25 14:53 | disposition left against medical advice (07) | LOC: M ED 14:22 | DX: Z53.21 Procedure and treatment not carried out due to patient leaving prior to being seen by health care provider (principal) ==

== ENCOUNTER 2023-04-14 22:19 | Emergency (ER) | payer OTHER ==
[~2023-04-14] VITALS: Ht 160 cm; Wt 63.6 kg
[~2023-04-14 22:19] MED LIST changes: +RALTEGRAVIR 400 MG TAB (ISENTRESS) PO SCH; +TRUVADA 200MG/300MG TABLET PO SCH
[2023-04-14] MEDS ORDERED: BOOSTRIX VACCINE (TETANUS/DIPHTH/ACEL. PERTUSSIS) 0.5ML SYR IM.IMMUN ONE (23:10)
[2023-04-14] MEDS ORDERED: metroNIDAZOLE (FLAGYL) 500MG TABLET PO ONE (23:10)
[2023-04-14] MEDS ORDERED: cefTRIAXone 500MG VIAL IM ONE (23:10)
[2023-04-14] MEDS ORDERED: EXPOSURE KIT-ADULT 7 DAY SUPPLY PO ONE (23:10)
[2023-04-14] MEDS ORDERED: LIDOCAINE 1% SDV 5ML VIAL DILUENT ONE (23:10)
[2023-04-14] MEDS ORDERED: DOXYCYCLINE HYCLATE 100MG TABLET PO ONE (23:10)
[2023-04-14] MEDS ORDERED: RALT40TA PO (23:17)
[2023-04-14] MEDS ORDERED: EMTR1TAB16 PO (23:17)
[2023-04-14] MEDS ORDERED: DOXY100C82 PO (23:17)
[2023-04-14] MEDS ORDERED: RALTEGRAVIR 400 MG TAB (ISENTRESS) PO ONE (23:30)
[2023-04-14] MEDS ORDERED: TRUVADA 200MG/300MG TABLET PO ONE (23:30)
[2023-04-15 00:01] LABS: ALBUMIN 3.6 G/DL (3.2-5.2); ALKALINE PHOSPHATASE 83 U/L (46-116); ALT/SGPT 42 U/L (7.0-40); AST/SGOT 35 U/L (<34); BILIRUBIN,TOTAL 0.2 MG/DL (0.3-1.2); BLOOD UREA NITROGEN 10 MG/DL (9-23); CALCIUM LEVEL 8.6 MG/DL (8.5-10.1); CARBON DIOXIDE LEVEL 29 MMOL/L (20-31); CHLORIDE LEVEL 108 MMOL/L (98-107); CREATININE FOR GFR 0.75 MG/DL (0.55-1.30); GLOMERULAR FILTRATION RATE > 60.0 (>60); GLUCOSE, FASTING 91 MG/DL (60-100); POTASSIUM SERUM 3.9 MMOL/L (3.5-5.1); SODIUM LEVEL 143 MMOL/L (136-145); TOTAL PROTEIN 7.3 G/DL (5.7-8.2)
[2023-04-15 00:09] LABS: HEPATITIS B SURFACE ANTIBODY POSITIVE (POSITIVE)
[2023-04-15 00:11] LABS: HEMOGLOBIN 14.2 g/dl (12.0-15.5); MEAN CORPUSCULAR HEMOGLOBIN 29.8 pg (27.0-33.0); MEAN CORPUSCULAR HGB CONC 33.8 g/dl (32.0-36.5); MEAN CORPUSCULAR VOLUME 88.2 fl (80.0-96.0); PLATELET COUNT, AUTOMATED 425 10^3/uL (150-450); RED BLOOD COUNT 4.76 10^6/uL (4.00-5.40); WHITE BLOOD COUNT 9.5 10^3/uL (4.0-10.0)
[2023-04-15 00:33] LABS: HIV 1&2 SCREEN NEGATIVE (NEGATIVE)
[2023-04-15 00:37] LABS: HCG, SERUM QUALITATIVE NEGATIVE (NEGATIVE)
[2023-04-15] MEDS ORDERED: LORazepam 1 MG TAB PO ONE (00:50)
[2023-04-15 00:52] LABS: CHLAMYDIA DNA AMPLIFICATION NEGATIVE (NEGATIVE); GC DNA AMPLIFICATION NEGATIVE (NEGATIVE)
[2023-04-15 00:57] LABS: ATYPICAL LYMPH 12 % (0-5); BASOPHILS 1 % (0-1); EOSINOPHILS 3 % (0-3); HYPERSEGMENTED POLYS 1+; LYMPHOCYTES 33 % (16-44); MONOCYTES 3 % (0-5); MYELOCYTES 1 % (0-0); NEUTROPHILS 47 % (28-66); PLATELET ESTIMATE NORMAL (NORMAL)
[2023-04-15 01:06] LABS: HEPATITIS C VIRUS ABY INDEX > 11.00 INDEX (<0.8)
[2023-04-15 02:07] VITALS: BP 124/78; TEMP 98.3; O2SAT 98
== END 2023-04-15 02:10 | disposition home or self-care (01) ==
LOC: M ED 22:19
DX: T74.21XA Adult sexual abuse, confirmed, initial encounter (principal); F17.210 Nicotine dependence, cigarettes, uncomplicated; F12.90 Cannabis use, unspecified, uncomplicated; F10.10 Alcohol abuse, uncomplicated; E87.6 Hypokalemia; C53.9 Malignant neoplasm of cervix uteri, unspecified; C81.90 Hodgkin lymphoma, unspecified, unspecified site; E55.9 Vitamin D deficiency, unspecified; D64.9 Anemia, unspecified; F99 Mental disorder, not otherwise specified; Z88.8 Allergy status to other drugs, medicaments and biological substances; Z79.899 Other long term (current) drug therapy; Z79.1 Long term (current) use of non-steroidal anti-inflammatories (NSAID); Z79.2 Long term (current) use of antibiotics; Z79.810 Long term (current) use of selective estrogen receptor modulators (SERMs); Z79.51 Long term (current) use of inhaled steroids; Z23 Encounter for immunization
CPT/HCPCS: 80053; 84703; 85025; 86706; 86780; 86803; 87340; 87389; 87522; 87661; 87810; 87850; 90471; 90715; 96372; 99283; J0696

== ENCOUNTER 2023-08-23 11:33 | Emergency (ER) | payer OTHER, SELFPAY ==
[~2023-08-23] VITALS: Ht 160 cm; Wt 58.5 kg
[~2023-08-23 11:33] MED LIST changes: +DOXY100C82 PO; +EMTR1TAB16 PO; -KLON0.5T PO; +KLON0.5T8 PO; +RALT40TA PO; -RALTEGRAVIR 400 MG TAB (ISENTRESS) PO SCH; -TRUVADA 200MG/300MG TABLET PO SCH
[2023-08-23 11:39] VITALS: BP 132/84; TEMP 96.8; O2SAT 91
[2023-08-23] MEDS: LIDOCAINE W/EPINEPHRINE 1% 20ML VIAL SC ONE (13:50)
[2023-08-23] MEDS: DERMABOND TOPICAL SKIN ADHESIVE TOP ONE (13:50)
[2023-08-23] MEDS ORDERED: CEPH500C PO (14:45)
[2023-08-23] MEDS: BACITRACIN OINTMENT 30GM TUBE TOP ONE (14:46)
== END 2023-08-23 14:53 | disposition home or self-care (01) ==
LOC: M ED 11:33
DX: S51.811A Laceration without foreign body of right forearm, initial encounter (principal); S61.214A Laceration without foreign body of right ring finger without damage to nail, initial encounter; S61.216A Laceration without foreign body of right little finger without damage to nail, initial encounter; W25.XXXA Contact with sharp glass, initial encounter; Y92.009 Unspecified place in unspecified non-institutional (private) residence as the place of occurrence of the external cause; Y93.89 Activity, other specified; Y99.9 Unspecified external cause status; I10 Essential (primary) hypertension; E78.5 Hyperlipidemia, unspecified; K21.9 Gastro-esophageal reflux disease without esophagitis; F19.10 Other psychoactive substance abuse, uncomplicated; F17.200 Nicotine dependence, unspecified, uncomplicated; Z79.899 Other long term (current) drug therapy; Z88.8 Allergy status to other drugs, medicaments and biological substances

== ENCOUNTER 2023-10-03 05:32 | Emergency (ER) | payer MEDICAID, SELFPAY ==
[~2023-10-03] VITALS: Ht 160 cm; Wt 75.0 kg
[~2023-10-03 05:32] MED LIST changes: +CEPH500C PO
[2023-10-03] MEDS: NS 1,000 ML IV ONE (07:40)
[2023-10-03 08:07] LABS: APPEARANCE, URINE CLEAR (CLEAR); BACTERIA, URINE AUTO 1+ (NEGATIVE); BILIRUBIN, URINE AUTO NEGATIVE (NEGATIVE); BLOOD, URINE BLOOD 2+ (NEGATIVE); COLOR, URINE YELLOW (YELLOW); GLUCOSE, URINE (UA) AUTO NEGATIVE (NEGATIVE); KETONE, URINE AUTO NEGATIVE (NEGATIVE); LEUKOCYTE ESTERASE, URINE AUTO NEGATIVE (NEGATIVE); MUCUS, URINE SMALL (NEGATIVE); NITRITE, URINE AUTO NEGATIVE (NEGATIVE); PROTEIN, URINE AUTO 1+ mg/dL (NEGATIVE); RBC, URINE AUTO 13 /HPF (0-3); SPECIFIC GRAVITY URINE AUTO 1.013 (1.002-1.035); SQUAMOUS EPITHELIAL CELL UR AU 3 /HPF (0-6); WBC, URINE AUTO 3 /HPF (0-3)
[2023-10-03] MEDS: LORazepam 1 MG TAB PO STA (08:16)
[2023-10-03] MEDS: diphenhydrAMINE 50MG/ML VIAL IV STA (08:52)
[2023-10-03] MEDS: KETOROLAC 30 MG/ML 1ML VIAL IV ONE (08:55)
[2023-10-03 09:08] LABS: BASO # 0.1 10^3/uL (0.0-0.2); BASO % 0.9 % (0.0-1.0); EOS # 0.3 10^3/uL (0.0-0.5); EOS % 1.9 % (0.0-3.0); HEMOGLOBIN 11.9 g/dl (12.0-15.5); LYMPH # 2.5 10^3/uL (1.5-5.0); LYMPH % 18.2 % (24.0-44.0); MEAN CORPUSCULAR HEMOGLOBIN 29.8 pg (27.0-33.0); MEAN CORPUSCULAR VOLUME 87.7 fl (80.0-96.0); MONO % 7.6 % (2.0-8.0); NEUTROPHILS # 9.5 10^3/uL (1.5-8.5); NEUTROPHILS % 70.1 % (36.0-66.0); PLATELET COUNT, AUTOMATED 333 10^3/uL (150-450); RED BLOOD COUNT 3.99 10^6/uL (4.00-5.40); WHITE BLOOD COUNT 13.5 10^3/uL (4.0-10.0)
[2023-10-03 09:27] LABS: LIPASE 22 U/L (12-53)
[2023-10-03 09:29] LABS: ALBUMIN 2.9 G/DL (3.2-5.2); ALKALINE PHOSPHATASE 196 U/L (46-116); ALT/SGPT 72 U/L (7.0-40); AST/SGOT 15 U/L (<34); BILIRUBIN,TOTAL 0.5 MG/DL (0.3-1.2); BLOOD UREA NITROGEN 9 MG/DL (9-23); CALCIUM LEVEL 8.5 MG/DL (8.5-10.1); CARBON DIOXIDE LEVEL 24 MMOL/L (20-31); CHLORIDE LEVEL 102 MMOL/L (98-107); CREATININE FOR GFR 0.55 MG/DL (0.55-1.30); GLOMERULAR FILTRATION RATE > 60.0 (>60); GLUCOSE, FASTING 93 MG/DL (60-100); POTASSIUM SERUM 3.5 MMOL/L (3.5-5.1); SODIUM LEVEL 133 MMOL/L (136-145); TOTAL PROTEIN 7.5 G/DL (5.7-8.2)
[2023-10-03] MEDS: MORPHINE 4 MG/ML 1ML VIAL IV ONE (10:07)
[2023-10-03] MEDS ORDERED: ISOVUE-370 76% 100ML VIAL As Ordered ONE (11:18)
[2023-10-03] MEDS ORDERED: ASPE4PAD TOP (11:58)
[2023-10-03] MEDS ORDERED: METH-1165 PO (11:58)
[2023-10-03 12:10] VITALS: BP 122/77; TEMP 98.7; O2SAT 98
[2023-10-03] MEDS: diazePAM 5MG TABLET PO ONE (12:31)
== END 2023-10-03 12:43 | disposition home or self-care (01) ==
LOC: EDBD 05:32 → M ED 05:32
DX: R91.8 Other nonspecific abnormal finding of lung field (principal); M54.50 Low back pain, unspecified; K80.20 Calculus of gallbladder without cholecystitis without obstruction; Z87.442 Personal history of urinary calculi; Z86.19 Personal history of other infectious and parasitic diseases; Z85.72 Personal history of non-Hodgkin lymphomas; F17.200 Nicotine dependence, unspecified, uncomplicated; R16.2 Hepatomegaly with splenomegaly, not elsewhere classified; Z79.899 Other long term (current) drug therapy; Z88.8 Allergy status to other drugs, medicaments and biological substances
CPT/HCPCS: 36415; 71260; 74176; 80053; 81001; 83690; 85025; 96361; 96374; 96375; 99284; J1200; J1885; Q9967

== ENCOUNTER 2023-10-13 11:20 | Inpatient (IN) | payer MEDICAID, SELFPAY ==
[~2023-10-13] VITALS: Ht 160.7 cm; Wt 58.6 kg
[~2023-10-13 11:20] MED LIST changes: +ASPE4PAD TOP; +METH-1165 PO
[2023-10-13] MEDS: LIDOCAINE 5% (LIDODERM) PATCH TD ONE (13:50)
[2023-10-13] MEDS: KETOROLAC 30 MG/ML 1ML VIAL IM ONE (13:51)
[2023-10-13] MEDS: diazePAM 5MG TABLET PO ONE (13:51)
[2023-10-13 15:56] LABS: BASO % 0.2 % (0.0-1.0); EOS # 0.1 10^3/uL (0.0-0.5); EOS % 0.3 % (0.0-3.0); HEMATOCRIT 30.3 % (36.0-47.0); HEMOGLOBIN 10.9 g/dl (12.0-15.5); LYMPH # 1.6 10^3/uL (1.5-5.0); LYMPH % 9.6 % (24.0-44.0); MEAN CORPUSCULAR HEMOGLOBIN 29.5 pg (27.0-33.0); MEAN CORPUSCULAR VOLUME 81.9 fl (80.0-96.0); MONO # 1.2 10^3/uL (0.0-0.8); MONO % 7.2 % (2.0-8.0); NEUTROPHILS # 13.8 10^3/uL (1.5-8.5); NEUTROPHILS % 80.8 % (36.0-66.0); PLATELET COUNT, AUTOMATED 299 10^3/uL (150-450); WHITE BLOOD COUNT 17.1 10^3/uL (4.0-10.0)
[2023-10-13] MEDS: diphenhydrAMINE 50MG/ML VIAL IV ONE (15:57)
[2023-10-13 16:10] LABS: ERYTHROCYTE SEDIMENTATION RATE 104 mm/hr (0-20)
[2023-10-13 16:31] LABS: ALKALINE PHOSPHATASE 136 U/L (46-116); ALT/SGPT 26 U/L (7.0-40); AST/SGOT 42 U/L (<34); BILIRUBIN,DIRECT 0.2 MG/DL (<0.4); BILIRUBIN,TOTAL 0.5 MG/DL (0.3-1.2); BLOOD UREA NITROGEN 21 MG/DL (9-23); CALCIUM LEVEL 7.9 MG/DL (8.5-10.1); CARBON DIOXIDE LEVEL 24 MMOL/L (20-31); CHLORIDE LEVEL 93 MMOL/L (98-107); CREATININE FOR GFR 0.65 MG/DL (0.55-1.30); GLOMERULAR FILTRATION RATE > 60.0 (>58); GLUCOSE, FASTING 101 MG/DL (60-100); POTASSIUM SERUM 3.5 MMOL/L (3.5-5.1); SODIUM LEVEL 126 MMOL/L (136-145); TOTAL PROTEIN 6.9 G/DL (5.7-8.2)
[2023-10-13] MEDS ORDERED: ISOVUE-370 76% 100ML VIAL As Ordered ONE (16:35)
[2023-10-13] MEDS: ACETAMINOPHEN *IV* 1,000 MG in IV 1 EA IV ONE (16:44)
[2023-10-13 16:57] LABS: HIV 1&2 SCREEN NEGATIVE (NEGATIVE)
[2023-10-13] MEDS: NS 1,000 ML IV ONE (17:43)
[2023-10-13] MEDS: PIPERACILLIN/TAZOBACTAM SOD 3.375 GM in D5W MINI-BAG PLUS 50 ML IV ONE (18:44)
[2023-10-13] MEDS ORDERED: LORazepam 2 MG/ML 1ML VIAL IV PRN (19:50)
[2023-10-13] MEDS ORDERED: ONDANSETRON 4MG 2ML VIAL IV PRN (19:55)
[2023-10-13] MEDS: HYDROMORPHONE HCL 0.5 MG/ 0.5 ML SYRINGE IV PRN (20:08)
[2023-10-13] MEDS: THIAMINE 200MG 2ML VIAL IV ONE (20:25)
[2023-10-13] MEDS: LORazepam 2 MG TAB PO PRN (20:25)
[2023-10-13] MEDS ORDERED: PROHANCE 279.3MG/ML 15ML VIAL As Ordered ONE (21:47)
[2023-10-13] MEDS ORDERED: med rec (21:57)
[2023-10-13] MEDS ORDERED: VITA200028 PO (21:57)
[2023-10-13] MEDS ORDERED: HOME MED LIST COMPLETE! XX SCH (22:00)
[2023-10-13] MEDS: VANCOMYCIN HCL 1,000 MG, VIAL MATE ADAPTER 1 EACH in D5W 250 ML IV ONE (22:07)
[2023-10-13] MEDS: KCL 20MEQ in NS 1000ML 1,000 ML IV SCH (22:07)
[2023-10-13 23:04] VITALS: BP 131/75; TEMP 97.7; O2SAT 99
[2023-10-13] MEDS: MULTIVITAMINS/MINERALS THERAP 1 TAB PO SCH (23:15)
[2023-10-13] MEDS: FOLIC ACID 1MG TAB PO SCH (23:15)
[2023-10-13] MEDS: HYDROmorphone HCL 2MG/ML 1ML VIAL IV PRN (23:16)
[2023-10-13] MEDS: HEPARIN SOD (PORCINE) 5000UNITS/ML 1ML VIAL/SYRINGE SC SCH (23:18)
[2023-10-14] MEDS: VANCOMYCIN HCL 1,000 MG, VIAL MATE ADAPTER 1 EACH in D5W 250 ML IV SCH ×2 (00:53→22:44)
[2023-10-14] MEDS: PIPERACILLIN/TAZOBACTAM SOD 4.5 GM in D5W MINI-BAG PLUS 50 ML IV SCH (02:00)
[2023-10-14] MEDS ORDERED: MULTIVITAMINS/MINERALS THERAP 1 TAB As Ordered ONE (08:17)
[2023-10-14] MEDS ORDERED: FOLIC ACID 1MG TAB As Ordered ONE (08:17)
[2023-10-14] MEDS ORDERED: ZOSYN 4.5GM VIAL As Ordered ONE (08:22)
[2023-10-14] MEDS ORDERED: ACETAMINOPHEN TAB 650MG DOSE (2X325MG) As Ordered ONE (08:22)
[2023-10-14] MEDS: ALPRAZolam 0.25 MG TAB PO ONE (08:30)
[2023-10-14] MEDS ORDERED: HYDROmorphone HCL 2MG/ML 1ML VIAL As Ordered ONE (10:12)
[2023-10-14 12:23] VITALS: BP 111/68; TEMP 97; O2SAT 95
[2023-10-14] MEDS: THIAMINE 200MG 2ML VIAL IV SCH (14:44)
[2023-10-14 15:37] LABS: BLOOD UREA NITROGEN 13 MG/DL (9-23); CALCIUM LEVEL 7.2 MG/DL (8.5-10.1); CARBON DIOXIDE LEVEL 22 MMOL/L (20-31); CHLORIDE LEVEL 99 MMOL/L (98-107); CREATININE FOR GFR 0.72 MG/DL (0.55-1.30); GLOMERULAR FILTRATION RATE > 60.0 (>58); GLUCOSE, FASTING 98 MG/DL (60-100); MAGNESIUM LEVEL 1.9 MG/DL (1.8-2.4); POTASSIUM SERUM 3.4 MMOL/L (3.5-5.1); SODIUM LEVEL 130 MMOL/L (136-145)
[2023-10-14 16:05] LABS: HEMATOCRIT 28.5 % (36.0-47.0); MEAN CORPUSCULAR HEMOGLOBIN 29.2 pg (27.0-33.0); MEAN CORPUSCULAR HGB CONC 35.1 g/dl (32.0-36.5); MEAN CORPUSCULAR VOLUME 83.1 fl (80.0-96.0); PLATELET COUNT, AUTOMATED 332 10^3/uL (150-450); RED BLOOD COUNT 3.43 10^6/uL (4.00-5.40); WHITE BLOOD COUNT 17.9 10^3/uL (4.0-10.0)
[2023-10-14 16:15] VITALS: BP 112/78; TEMP 102.3; O2SAT 100
[2023-10-14] MEDS: diphenhydrAMINE 50MG/ML VIAL IV SCH (16:29)
[2023-10-14] MEDS: ACETAMINOPHEN TAB 650MG DOSE (2X325MG) PO PRN (16:30)
[2023-10-14 17:30] VITALS: TEMP 102
[2023-10-14 17:52] LABS: BLOOD UREA NITROGEN 9 MG/DL (9-23); CALCIUM LEVEL 7.3 MG/DL (8.5-10.1); CARBON DIOXIDE LEVEL 22 MMOL/L (20-31); CHLORIDE LEVEL 98 MMOL/L (98-107); CREATININE FOR GFR 0.54 MG/DL (0.55-1.30); GLOMERULAR FILTRATION RATE > 60.0 (>58); GLUCOSE, FASTING 84 MG/DL (60-100); POTASSIUM SERUM 4.1 MMOL/L (3.5-5.1); SODIUM LEVEL 127 MMOL/L (136-145)
[2023-10-14 18:47] VITALS: BP 130/71; TEMP 99.1; O2SAT 99
[2023-10-14 20:06] VITALS: BP 105/67; TEMP 98.8; O2SAT 98
[2023-10-14] MEDS: NS 1,000 ML IV SCH (22:44)
[2023-10-15] VITALS (9 sets, daily range): BP systolic 97–132; BP diastolic 57–81; TEMP 97.5–101.3; O2SAT 97–100
[2023-10-15 08:13] LABS: HEMATOCRIT 29.2 % (36.0-47.0); HEMOGLOBIN 9.9 g/dl (12.0-15.5); MEAN CORPUSCULAR HEMOGLOBIN 29.2 pg (27.0-33.0); MEAN CORPUSCULAR HGB CONC 33.9 g/dl (32.0-36.5); MEAN CORPUSCULAR VOLUME 86.1 fl (80.0-96.0); PLATELET COUNT, AUTOMATED 385 10^3/uL (150-450); RED BLOOD COUNT 3.39 10^6/uL (4.00-5.40); WHITE BLOOD COUNT 19.9 10^3/uL (4.0-10.0)
[2023-10-15 08:52] LABS: HEPATITIS B SURFACE ANTIGEN NEGATIVE (NEGATIVE)
[2023-10-15 08:54] LABS: ANISOCYTOSIS 1+; ATYPICAL LYMPH 3 % (0-5); BASOPHILS 1 % (0-1); EOSINOPHILS 1 % (0-3); LYMPHOCYTES 10 % (16-44); MONOCYTES 6 % (0-5); NEUTROPHILS 75 % (28-66); PLATELET ESTIMATE NORMAL (NORMAL); POIKILOCYTOSIS 1+; POLYCHROMASIA 1+
[2023-10-15 09:14] LABS: HEPATITIS B CORE ANTIBODY IGM NEGATIVE (NEGATIVE)
[2023-10-15 09:16] LABS: ALBUMIN 1.5 G/DL (3.2-5.2); ALKALINE PHOSPHATASE 163 U/L (46-116); ALT/SGPT 27 U/L (7.0-40); AST/SGOT 35 U/L (<34); BILIRUBIN,TOTAL 0.6 MG/DL (0.3-1.2); BLOOD UREA NITROGEN 7 MG/DL (9-23); CALCIUM LEVEL 7.4 MG/DL (8.5-10.1); CARBON DIOXIDE LEVEL 23 MMOL/L (20-31); CHLORIDE LEVEL 100 MMOL/L (98-107); GLOMERULAR FILTRATION RATE > 60.0 (>58); GLUCOSE, FASTING 98 MG/DL (60-100); MAGNESIUM LEVEL 1.7 MG/DL (1.8-2.4); PHOSPHORUS LEVEL 3.4 MG/DL (2.5-4.9); POTASSIUM SERUM 3.9 MMOL/L (3.5-5.1); SODIUM LEVEL 130 MMOL/L (136-145); TOTAL PROTEIN 5.7 G/DL (5.7-8.2)
[2023-10-15 09:17] LABS: HEPATITIS C VIRUS ABY INDEX > 11.00 INDEX (<0.8)
[2023-10-15] MEDS: MAG SULF 1GM/100ML (MAG RUN) 1 GM in IV 1 EA IV SCH (09:55)
[2023-10-15] MEDS: VANCOMYCIN HCL 500 MG in D5W MINI-BAG PLUS 100 ML IV ONE (17:07)
[2023-10-16] VITALS (10 sets, daily range): BP systolic 94–124; BP diastolic 58–86; TEMP 97.1–102.4; O2SAT 92–99
[2023-10-16 04:52] LABS: BASO # 0.1 10^3/uL (0.0-0.2); BASO % 0.4 % (0.0-1.0); EOS # 0.3 10^3/uL (0.0-0.5); EOS % 1.5 % (0.0-3.0); HEMATOCRIT 26.3 % (36.0-47.0); LYMPH # 2.6 10^3/uL (1.5-5.0); LYMPH % 15.5 % (24.0-44.0); MEAN CORPUSCULAR HEMOGLOBIN 29.7 pg (27.0-33.0); MEAN CORPUSCULAR HGB CONC 34.2 g/dl (32.0-36.5); MEAN CORPUSCULAR VOLUME 86.8 fl (80.0-96.0); MONO # 1.2 10^3/uL (0.0-0.8); MONO % 7.1 % (2.0-8.0); NEUTROPHILS # 11.3 10^3/uL (1.5-8.5); NEUTROPHILS % 67.5 % (36.0-66.0); PLATELET COUNT, AUTOMATED 454 10^3/uL (150-450); RED BLOOD COUNT 3.03 10^6/uL (4.00-5.40); WHITE BLOOD COUNT 16.8 10^3/uL (4.0-10.0)
[2023-10-16 05:23] LABS: ALBUMIN 1.5 G/DL (3.2-5.2); ALKALINE PHOSPHATASE 153 U/L (46-116); ALT/SGPT 26 U/L (7.0-40); AST/SGOT 33 U/L (<34); BILIRUBIN,TOTAL 0.5 MG/DL (0.3-1.2); BLOOD UREA NITROGEN 7 MG/DL (9-23); CALCIUM LEVEL 7.1 MG/DL (8.5-10.1); CARBON DIOXIDE LEVEL 22 MMOL/L (20-31); CHLORIDE LEVEL 102 MMOL/L (98-107); CREATININE FOR GFR 0.64 MG/DL (0.55-1.30); GLOMERULAR FILTRATION RATE > 60.0 (>58); GLUCOSE, FASTING 114 MG/DL (60-100); MAGNESIUM LEVEL 1.7 MG/DL (1.8-2.4); SODIUM LEVEL 131 MMOL/L (136-145)
[2023-10-16] MEDS: diphenhydrAMINE 50MG/ML VIAL IV PRN (09:04)
[2023-10-16] MEDS: NS 1,000 ML IV SCH (10:11)
[2023-10-16] MEDS ORDERED: HEPARIN DRIP 25,000 UNITS in IV 1 EA IV SCH (12:15)
[2023-10-16] MEDS ORDERED: HEPARIN SOD (PORCINE) 5000UNITS/ML 1ML VIAL/SYRINGE IV PRN (12:15)
[2023-10-16 13:08] LABS: HEMATOCRIT 26.4 % (36.0-47.0); HEMOGLOBIN 8.9 g/dl (12.0-15.5); MEAN CORPUSCULAR HEMOGLOBIN 29.6 pg (27.0-33.0); MEAN CORPUSCULAR HGB CONC 33.7 g/dl (32.0-36.5); MEAN CORPUSCULAR VOLUME 87.7 fl (80.0-96.0); PLATELET COUNT, AUTOMATED 468 10^3/uL (150-450); RED BLOOD COUNT 3.01 10^6/uL (4.00-5.40); WHITE BLOOD COUNT 16.6 10^3/uL (4.0-10.0)
[2023-10-16] MEDS: ceFAZolin SOD 2 GM in IV 1 EA IV SCH (13:54)
[2023-10-16] MEDS ORDERED: MEROPENEM INJ 2 GM in NS 100 ML IV SCH ×2 (14:00→16:00)
[2023-10-16] MEDS: MEROPENEM INJ 1 GM in IV 1 EA IV SCH ×2 (15:08)
[2023-10-16] MEDS: BENZONATATE 100MG CAPSULE PO PRN (18:20)
[2023-10-16] MEDS ORDERED: ALBUTEROL 90 MCG/ACT 8GM HFA INHALER INH PRN (18:25)
[2023-10-16] MEDS: BENZONATATE 100MG CAPSULE PO SCH (20:10)
[2023-10-17] VITALS (9 sets, daily range): BP systolic 103–125; BP diastolic 66–86; TEMP 97.3–98.8; O2SAT 96–99
[2023-10-17 05:45] LABS: BASO # 0.2 10^3/uL (0.0-0.2); BASO % 1.7 % (0.0-1.0); EOS # 0.6 10^3/uL (0.0-0.5); EOS % 4.2 % (0.0-3.0); HEMATOCRIT 32.6 % (36.0-47.0); HEMOGLOBIN 10.7 g/dl (12.0-15.5); LYMPH # 2.5 10^3/uL (1.5-5.0); LYMPH % 18.3 % (24.0-44.0); MEAN CORPUSCULAR HEMOGLOBIN 28.9 pg (27.0-33.0); MEAN CORPUSCULAR HGB CONC 32.8 g/dl (32.0-36.5); MEAN CORPUSCULAR VOLUME 88.1 fl (80.0-96.0); MONO # 0.9 10^3/uL (0.0-0.8); MONO % 6.3 % (2.0-8.0); NEUTROPHILS % 58.4 % (36.0-66.0); PLATELET COUNT, AUTOMATED 516 10^3/uL (150-450); WHITE BLOOD COUNT 13.8 10^3/uL (4.0-10.0)
[2023-10-17 05:56] LABS: ALBUMIN 1.5 G/DL (3.2-5.2); ALKALINE PHOSPHATASE 153 U/L (46-116); ALT/SGPT 25 U/L (7.0-40); AST/SGOT 28 U/L (<34); BILIRUBIN,TOTAL 0.4 MG/DL (0.3-1.2); BLOOD UREA NITROGEN 6 MG/DL (9-23); CALCIUM LEVEL 7.9 MG/DL (8.5-10.1); CARBON DIOXIDE LEVEL 24 MMOL/L (20-31); CHLORIDE LEVEL 106 MMOL/L (98-107); CREATININE FOR GFR 0.72 MG/DL (0.55-1.30); GLOMERULAR FILTRATION RATE > 60.0 (>58); GLUCOSE, FASTING 76 MG/DL (60-100); MAGNESIUM LEVEL 1.8 MG/DL (1.8-2.4); POTASSIUM SERUM 4.6 MMOL/L (3.5-5.1); SODIUM LEVEL 136 MMOL/L (136-145); TOTAL PROTEIN 6.3 G/DL (5.7-8.2)
[2023-10-17 07:15] LABS: CLOSTRIDIUM DIFFICILE PCR NEGATIVE (NEGATIVE)
[2023-10-17 10:27] LABS: HCV RNA QUANTITATION <15 NOT DETECTED IU/mL (NOT DETECTED); HCV RNA log10 <1.18 NOT DETECTED Log IU/mL (NOT DETECTED)
[2023-10-17 11:38] LABS: PROCALCITONIN 0.65 ng/ml
[2023-10-18 04:11] VITALS: BP 143/85; TEMP 98.4; O2SAT 98
[2023-10-18 05:29] LABS: BASO # 0.1 10^3/uL (0.0-0.2); BASO % 0.8 % (0.0-1.0); EOS # 0.3 10^3/uL (0.0-0.5); EOS % 2.1 % (0.0-3.0); HEMATOCRIT 28.2 % (36.0-47.0); HEMOGLOBIN 9.4 g/dl (12.0-15.5); LYMPH # 2.4 10^3/uL (1.5-5.0); LYMPH % 16.5 % (24.0-44.0); MEAN CORPUSCULAR HGB CONC 33.3 g/dl (32.0-36.5); MONO % 6.5 % (2.0-8.0); NEUTROPHILS # 9.7 10^3/uL (1.5-8.5); NEUTROPHILS % 66.4 % (36.0-66.0); PLATELET COUNT, AUTOMATED 596 10^3/uL (150-450); RED BLOOD COUNT 3.24 10^6/uL (4.00-5.40); WHITE BLOOD COUNT 14.6 10^3/uL (4.0-10.0)
[2023-10-18 05:40] LABS: BLOOD UREA NITROGEN 5 MG/DL (9-23); CALCIUM LEVEL 7.5 MG/DL (8.5-10.1); CARBON DIOXIDE LEVEL 22 MMOL/L (20-31); CHLORIDE LEVEL 104 MMOL/L (98-107); CREATININE FOR GFR 0.67 MG/DL (0.55-1.30); GLOMERULAR FILTRATION RATE > 60.0 (>58); GLUCOSE, FASTING 94 MG/DL (60-100); MAGNESIUM LEVEL 1.5 MG/DL (1.8-2.4); POTASSIUM SERUM 4.4 MMOL/L (3.5-5.1); SODIUM LEVEL 134 MMOL/L (136-145)
[2023-10-18 07:35] VITALS: BP 129/79; TEMP 98.1; O2SAT 99
[2023-10-18] MEDS: MAG SULF 1GM/100ML (MAG RUN) 1 GM in IV 1 EA IV ONE ×2 (08:12→09:44)
[2023-10-18] MEDS: HEPARIN SOD (PORCINE) 5000UNITS/ML 1ML VIAL/SYRINGE SQ SCH (09:00)
[2023-10-18 11:40] VITALS: BP 121/78; TEMP 97.4; O2SAT 99
[2023-10-18] MEDS: MORPHINE 2 MG/ML 1ML VIAL IV PRN (12:22)
[2023-10-18 16:30] VITALS: BP 121/83; TEMP 98.9; O2SAT 95
[2023-10-18 19:18] VITALS: BP 137/83; TEMP 97.9; O2SAT 98
[2023-10-18 23:06] VITALS: BP 138/86; TEMP 98.8; O2SAT 100
[2023-10-19 03:08] VITALS: BP 139/79; TEMP 97.4; O2SAT 98
[2023-10-19 07:04] LABS: HEMATOCRIT 28.3 % (36.0-47.0); HEMOGLOBIN 9.5 g/dl (12.0-15.5); MEAN CORPUSCULAR HEMOGLOBIN 28.9 pg (27.0-33.0); MEAN CORPUSCULAR HGB CONC 33.6 g/dl (32.0-36.5); PLATELET COUNT, AUTOMATED 597 10^3/uL (150-450); RED BLOOD COUNT 3.29 10^6/uL (4.00-5.40); WHITE BLOOD COUNT 16.2 10^3/uL (4.0-10.0)
[2023-10-19 07:50] LABS: ATYPICAL LYMPH 2 % (0-5); EOSINOPHILS 1 % (0-3); LYMPHOCYTES 33 % (16-44); MONOCYTES 4 % (0-5); NEUTROPHILS 60 % (28-66); PLATELET ESTIMATE INCREASED (NORMAL); POLYCHROMASIA 1+
[2023-10-19 08:18] VITALS: BP 118/73; TEMP 98.1; O2SAT 99
[2023-10-19] MEDS: MORPHINE 2 MG/ML 1ML VIAL IV PRN ×2 (10:32→16:46)
[2023-10-19] MEDS ORDERED: SUCRALFATE 1 GM TAB PO SCH (12:00)
[2023-10-19 16:42] VITALS: BP 137/85; TEMP 97.4; O2SAT 98
[2023-10-19 19:47] VITALS: BP 131/77; TEMP 99.2; O2SAT 99
[2023-10-19] MEDS ORDERED: FAMOTIDINE 20 MG TAB PO SCH (21:00)
[2023-10-19 23:56] VITALS: BP 115/67; TEMP 98.9; O2SAT 97
[2023-10-20 03:42] VITALS: BP 121/69; TEMP 97.9; O2SAT 99
[2023-10-20 08:03] VITALS: BP 104/64; TEMP 97.1; O2SAT 99
[2023-10-20] MEDS ORDERED: PANTOPRAZOLE 40MG TAB (PROTONIX) PO SCH (09:00)
[2023-10-20] MEDS ORDERED: HYDROCORTISONE 10 MG TAB PO SCH ×2 (09:00)
[2023-10-20 09:02] LABS: BASO # 0.1 10^3/uL (0.0-0.2); BASO % 0.6 % (0.0-1.0); EOS # 0.2 10^3/uL (0.0-0.5); HEMATOCRIT 28.6 % (36.0-47.0); HEMOGLOBIN 9.4 g/dl (12.0-15.5); LYMPH # 2.4 10^3/uL (1.5-5.0); LYMPH % 14.7 % (24.0-44.0); MEAN CORPUSCULAR HEMOGLOBIN 28.5 pg (27.0-33.0); MEAN CORPUSCULAR HGB CONC 32.9 g/dl (32.0-36.5); MEAN CORPUSCULAR VOLUME 86.7 fl (80.0-96.0); MONO # 1.2 10^3/uL (0.0-0.8); MONO % 7.2 % (2.0-8.0); NEUTROPHILS # 11.9 10^3/uL (1.5-8.5); NEUTROPHILS % 71.8 % (36.0-66.0); PLATELET COUNT, AUTOMATED 570 10^3/uL (150-450); WHITE BLOOD COUNT 16.6 10^3/uL (4.0-10.0)
[2023-10-20 09:32] LABS: BLOOD UREA NITROGEN 7 MG/DL (9-23); CALCIUM LEVEL 8.1 MG/DL (8.5-10.1); CARBON DIOXIDE LEVEL 26 MMOL/L (20-31); CHLORIDE LEVEL 103 MMOL/L (98-107); CREATININE FOR GFR 0.62 MG/DL (0.55-1.30); GLOMERULAR FILTRATION RATE > 60.0 (>58); GLUCOSE, FASTING 99 MG/DL (60-100); MAGNESIUM LEVEL 1.5 MG/DL (1.8-2.4); POTASSIUM SERUM 4.2 MMOL/L (3.5-5.1); SODIUM LEVEL 135 MMOL/L (136-145)
[2023-10-20] MEDS ORDERED: LIDOCAINE 1% MDV 20ML VIAL As Ordered ONE (10:37)
[2023-10-20] MEDS: PERCOCET 5MG/325MG TAB PO PRN (12:11)
[2023-10-20] MEDS: ceFAZolin SOD 2 GM in IV 1 EA IV SCH (13:55)
[2023-10-20] MEDS: MAG SULF 1GM/100ML (MAG RUN) 1 GM in IV 1 EA IV SCH (15:09)
[2023-10-20 15:34] VITALS: BP 104/62; TEMP 97.6; O2SAT 96
[2023-10-20 20:17] VITALS: BP 107/56; TEMP 97.4; O2SAT 97
[2023-10-20] MEDS: MAGNESIUM OXIDE 400MG TAB (MAG-OX) PO SCH (20:20)
[2023-10-20] MEDS: ONDANSETRON 4MG 2ML VIAL IV PRN (20:22)
[2023-10-20 22:10] VITALS: BP 118/77; TEMP 98.6; O2SAT 96
[2023-10-21 04:34] VITALS: BP 119/77; TEMP 98.6; O2SAT 98
[2023-10-21 12:30] VITALS: BP 124/77; TEMP 97.5; O2SAT 98
[2023-10-21 13:52] LABS: HEMATOCRIT 28.2 % (36.0-47.0); HEMOGLOBIN 9.3 g/dl (12.0-15.5); MEAN CORPUSCULAR HEMOGLOBIN 29.1 pg (27.0-33.0); MEAN CORPUSCULAR VOLUME 88.1 fl (80.0-96.0); PLATELET COUNT, AUTOMATED 566 10^3/uL (150-450)
[2023-10-21 14:23] LABS: BLOOD UREA NITROGEN 10 MG/DL (9-23); CALCIUM LEVEL 8.5 MG/DL (8.5-10.1); CARBON DIOXIDE LEVEL 27 MMOL/L (20-31); CHLORIDE LEVEL 101 MMOL/L (98-107); CREATININE FOR GFR 0.68 MG/DL (0.55-1.30); GLOMERULAR FILTRATION RATE > 60.0 (>58); GLUCOSE, FASTING 93 MG/DL (60-100); MAGNESIUM LEVEL 1.8 MG/DL (1.8-2.4); POTASSIUM SERUM 4.4 MMOL/L (3.5-5.1); SODIUM LEVEL 134 MMOL/L (136-145)
[2023-10-21 20:00] VITALS: BP 123/78; TEMP 98.1; O2SAT 100
[2023-10-22 11:45] VITALS: BP 114/65; TEMP 98.1; O2SAT 98
[2023-10-23 05:51] VITALS: BP 112/66; TEMP 97.3; O2SAT 98
[2023-10-23 11:57] VITALS: BP 111/68; TEMP 97.9; O2SAT 98
[2023-10-23 20:00] VITALS: BP 114/62; TEMP 97.8; O2SAT 97
[2023-10-24] MEDS: NS 1,000 ML IV SCH (00:24)
[2023-10-24 05:32] VITALS: BP 131/91; TEMP 97.9; O2SAT 97
[2023-10-24] MEDS: SODIUM CHLORIDE 0.9% INJ 10 ML SYR IV SCH (05:55)
[2023-10-24] MEDS ORDERED: diltiaZEM 125 MG in NS 100 ML IV SCH (11:00)
[2023-10-24 12:36] VITALS: BP 112/72; TEMP 97.9; O2SAT 99
[2023-10-24 14:02] LABS: BASO # 0.1 10^3/uL (0.0-0.2); BASO % 0.9 % (0.0-1.0); EOS # 0.1 10^3/uL (0.0-0.5); EOS % 1.3 % (0.0-3.0); HEMATOCRIT 29.4 % (36.0-47.0); HEMOGLOBIN 9.5 g/dl (12.0-15.5); LYMPH # 3.1 10^3/uL (1.5-5.0); MEAN CORPUSCULAR HEMOGLOBIN 28.3 pg (27.0-33.0); MEAN CORPUSCULAR HGB CONC 32.3 g/dl (32.0-36.5); MEAN CORPUSCULAR VOLUME 87.5 fl (80.0-96.0); MONO # 0.6 10^3/uL (0.0-0.8); MONO % 5.6 % (2.0-8.0); NEUTROPHILS # 6.6 10^3/uL (1.5-8.5); PLATELET COUNT, AUTOMATED 587 10^3/uL (150-450); RED BLOOD COUNT 3.36 10^6/uL (4.00-5.40); WHITE BLOOD COUNT 10.6 10^3/uL (4.0-10.0)
[2023-10-24 14:22] LABS: ALBUMIN 2.1 G/DL (3.2-5.2); ALKALINE PHOSPHATASE 119 U/L (46-116); ALT/SGPT 17 U/L (7.0-40); AST/SGOT 23 U/L (<34); BILIRUBIN,TOTAL 0.2 MG/DL (0.3-1.2); BLOOD UREA NITROGEN 12 MG/DL (9-23); CALCIUM LEVEL 8.9 MG/DL (8.5-10.1); CARBON DIOXIDE LEVEL 23 MMOL/L (20-31); CHLORIDE LEVEL 105 MMOL/L (98-107); CREATININE FOR GFR 0.57 MG/DL (0.55-1.30); GLOMERULAR FILTRATION RATE > 60.0 (>58); GLUCOSE, FASTING 116 MG/DL (60-100); MAGNESIUM LEVEL 1.7 MG/DL (1.8-2.4); POTASSIUM SERUM 4.2 MMOL/L (3.5-5.1); SODIUM LEVEL 135 MMOL/L (136-145); TOTAL PROTEIN 7.9 G/DL (5.7-8.2)
[2023-10-24] MEDS ORDERED: fentaNYL 100 MCG/2 ML INJECTION As Ordered ONE (17:19)
[2023-10-24] MEDS ORDERED: LIDOCAINE 2% 100MG/5ML SDV (FOR ANES.) As Ordered ONE (17:19)
[2023-10-24] MEDS ORDERED: propofoL 200 MG/20 ML VIAL As Ordered ONE (17:19)
[2023-10-24] MEDS ORDERED: MIDAZOLAM INJ 2MG/2ML VIAL As Ordered ONE (17:19)
[2023-10-24] MEDS: CETACAINE SPRAY 5GM As Ordered ONE (17:40)
[2023-10-24] MEDS: LIDOCAINE 2% JELLY 6ML SYRINGE As Ordered ONE (17:41)
[2023-10-24 18:30] VITALS: BP 117/74; TEMP 98.1; O2SAT 99
[2023-10-24 20:03] VITALS: BP 117/67; TEMP 97.9; O2SAT 94
[2023-10-25 04:24] VITALS: BP 126/84; TEMP 97.9; O2SAT 98
[2023-10-25 07:49] LABS: BASO # 0.1 10^3/uL (0.0-0.2); EOS # 0.2 10^3/uL (0.0-0.5); EOS % 1.5 % (0.0-3.0); HEMATOCRIT 31.6 % (36.0-47.0); HEMOGLOBIN 10.2 g/dl (12.0-15.5); LYMPH # 3.1 10^3/uL (1.5-5.0); LYMPH % 28.5 % (24.0-44.0); MEAN CORPUSCULAR HEMOGLOBIN 27.9 pg (27.0-33.0); MEAN CORPUSCULAR HGB CONC 32.3 g/dl (32.0-36.5); MEAN CORPUSCULAR VOLUME 86.6 fl (80.0-96.0); MONO # 0.5 10^3/uL (0.0-0.8); MONO % 4.6 % (2.0-8.0); NEUTROPHILS % 63.5 % (36.0-66.0); PLATELET COUNT, AUTOMATED 592 10^3/uL (150-450); RED BLOOD COUNT 3.65 10^6/uL (4.00-5.40)
[2023-10-25 07:56] LABS: BLOOD UREA NITROGEN 10 MG/DL (9-23); CALCIUM LEVEL 8.9 MG/DL (8.5-10.1); CARBON DIOXIDE LEVEL 24 MMOL/L (20-31); CHLORIDE LEVEL 102 MMOL/L (98-107); CREATININE FOR GFR 0.61 MG/DL (0.55-1.30); GLOMERULAR FILTRATION RATE > 60.0 (>58); GLUCOSE, FASTING 130 MG/DL (60-100); MAGNESIUM LEVEL 1.5 MG/DL (1.8-2.4); POTASSIUM SERUM 4.2 MMOL/L (3.5-5.1); SODIUM LEVEL 136 MMOL/L (136-145)
[2023-10-25] MEDS: SODIUM CHLORIDE 0.9% INJ 10 ML SYR IV PRN (08:55)
[2023-10-25 12:00] VITALS: BP 106/55; TEMP 98.6; O2SAT 96
[2023-10-25 19:55] VITALS: BP 118/69; TEMP 97.5; O2SAT 98
[2023-10-26 04:29] VITALS: BP 123/79; TEMP 97.3; O2SAT 99
[2023-10-26 11:58] VITALS: BP 122/82; TEMP 97.7; O2SAT 99
[2023-10-26] MEDS: PERCOCET 5MG/325MG TAB PO PRN (14:30)
[2023-10-26] MEDS: RIVAROXABAN 10MG TAB (XARELTO) PO SCH (17:35)
[2023-10-26 20:00] VITALS: BP 116/69; TEMP 97.9; O2SAT 97
[2023-10-26] MEDS: RAMELTEON 8 MG TAB (ROZEREM) PO SCH (21:08)
[2023-10-27 04:00] VITALS: BP 115/81; TEMP 97.7; O2SAT 98
[2023-10-27] MEDS: DULoxetine 30MG CAPSULE (CYMBALTA) PO SCH (08:03)
[2023-10-27 12:00] VITALS: BP 116/81; TEMP 97.2; O2SAT 98
[2023-10-27 13:37] LABS: BASO # 0.1 10^3/uL (0.0-0.2); BASO % 1.4 % (0.0-1.0); EOS # 0.3 10^3/uL (0.0-0.5); EOS % 3.1 % (0.0-3.0); HEMATOCRIT 30.3 % (36.0-47.0); LYMPH # 2.7 10^3/uL (1.5-5.0); LYMPH % 29.5 % (24.0-44.0); MEAN CORPUSCULAR HEMOGLOBIN 28.4 pg (27.0-33.0); MEAN CORPUSCULAR VOLUME 86.1 fl (80.0-96.0); MONO # 0.5 10^3/uL (0.0-0.8); MONO % 5.6 % (2.0-8.0); NEUTROPHILS # 5.5 10^3/uL (1.5-8.5); NEUTROPHILS % 59.3 % (36.0-66.0); PLATELET COUNT, AUTOMATED 510 10^3/uL (150-450); RED BLOOD COUNT 3.52 10^6/uL (4.00-5.40); WHITE BLOOD COUNT 9.3 10^3/uL (4.0-10.0)
[2023-10-27] MEDS: BISACODYL 10MG SUPP PR ONE (13:39)
[2023-10-27 14:03] LABS: BLOOD UREA NITROGEN 17 MG/DL (9-23); CALCIUM LEVEL 9.3 MG/DL (8.5-10.1); CARBON DIOXIDE LEVEL 25 MMOL/L (20-31); CHLORIDE LEVEL 103 MMOL/L (98-107); GLOMERULAR FILTRATION RATE > 60.0 (>58); GLUCOSE, FASTING 86 MG/DL (60-100); MAGNESIUM LEVEL 1.7 MG/DL (1.8-2.4); POTASSIUM SERUM 4.9 MMOL/L (3.5-5.1); SODIUM LEVEL 135 MMOL/L (136-145)
[2023-10-27] MEDS: SENOKOT S TAB PO SCH (20:51)
[2023-10-28 06:04] VITALS: BP 111/70; TEMP 97.5; O2SAT 97
[2023-10-28 12:00] VITALS: BP 116/82; TEMP 97.6; O2SAT 95
[2023-10-28 12:27] LABS: BASO # 0.1 10^3/uL (0.0-0.2); BASO % 1.5 % (0.0-1.0); EOS # 0.3 10^3/uL (0.0-0.5); EOS % 3.9 % (0.0-3.0); HEMATOCRIT 30.3 % (36.0-47.0); HEMOGLOBIN 10.2 g/dl (12.0-15.5); LYMPH # 2.3 10^3/uL (1.5-5.0); LYMPH % 28.4 % (24.0-44.0); MEAN CORPUSCULAR HEMOGLOBIN 28.5 pg (27.0-33.0); MEAN CORPUSCULAR HGB CONC 33.7 g/dl (32.0-36.5); MEAN CORPUSCULAR VOLUME 84.6 fl (80.0-96.0); MONO # 0.3 10^3/uL (0.0-0.8); MONO % 4.2 % (2.0-8.0); NEUTROPHILS % 61.1 % (36.0-66.0); PLATELET COUNT, AUTOMATED 507 10^3/uL (150-450); RED BLOOD COUNT 3.58 10^6/uL (4.00-5.40); WHITE BLOOD COUNT 8.2 10^3/uL (4.0-10.0)
[2023-10-28 12:52] LABS: BLOOD UREA NITROGEN 16 MG/DL (9-23); CALCIUM LEVEL 8.7 MG/DL (8.5-10.1); CARBON DIOXIDE LEVEL 24 MMOL/L (20-31); CHLORIDE LEVEL 103 MMOL/L (98-107); GLOMERULAR FILTRATION RATE > 60.0 (>58); GLUCOSE, FASTING 122 MG/DL (60-100); MAGNESIUM LEVEL 1.6 MG/DL (1.8-2.4); SODIUM LEVEL 136 MMOL/L (136-145)
[2023-10-28] MEDS: MAG SULF 1GM/100ML (MAG RUN) 1 GM in IV 1 EA IV ONE (18:46)
[2023-10-28 20:00] VITALS: BP 109/71; TEMP 97.7; O2SAT 90
[2023-10-29 04:45] VITALS: BP 109/72; TEMP 97.9; O2SAT 98
[2023-10-29 12:00] VITALS: BP 109/73; TEMP 97.5; O2SAT 97
[2023-10-29 13:37] LABS: BASO # 0.1 10^3/uL (0.0-0.2); BASO % 1.7 % (0.0-1.0); EOS # 0.4 10^3/uL (0.0-0.5); EOS % 5.6 % (0.0-3.0); HEMATOCRIT 30.3 % (36.0-47.0); HEMOGLOBIN 10.2 g/dl (12.0-15.5); LYMPH # 2.4 10^3/uL (1.5-5.0); LYMPH % 32.7 % (24.0-44.0); MEAN CORPUSCULAR HEMOGLOBIN 28.2 pg (27.0-33.0); MEAN CORPUSCULAR HGB CONC 33.7 g/dl (32.0-36.5); MEAN CORPUSCULAR VOLUME 83.7 fl (80.0-96.0); MONO # 0.3 10^3/uL (0.0-0.8); MONO % 4.3 % (2.0-8.0); NEUTROPHILS # 3.9 10^3/uL (1.5-8.5); NEUTROPHILS % 54.9 % (36.0-66.0); PLATELET COUNT, AUTOMATED 460 10^3/uL (150-450); RED BLOOD COUNT 3.62 10^6/uL (4.00-5.40); WHITE BLOOD COUNT 7.2 10^3/uL (4.0-10.0)
[2023-10-29 14:07] LABS: BLOOD UREA NITROGEN 16 MG/DL (9-23); CALCIUM LEVEL 8.5 MG/DL (8.5-10.1); CARBON DIOXIDE LEVEL 25 MMOL/L (20-31); CHLORIDE LEVEL 102 MMOL/L (98-107); CREATININE FOR GFR 0.59 MG/DL (0.55-1.30); GLOMERULAR FILTRATION RATE > 60.0 (>58); GLUCOSE, FASTING 117 MG/DL (60-100); MAGNESIUM LEVEL 1.6 MG/DL (1.8-2.4); POTASSIUM SERUM 4.1 MMOL/L (3.5-5.1); SODIUM LEVEL 135 MMOL/L (136-145)
[2023-10-29 21:00] VITALS: BP 109/73; TEMP 97.7; O2SAT 97
[2023-10-29] MEDS: MAGNESIUM OXIDE 400MG TAB (MAG-OX) PO SCH (22:07)
[2023-10-29] MEDS: RAMELTEON 8 MG TAB (ROZEREM) PO SCH (23:26)
[2023-10-30 04:00] VITALS: BP 110/74; TEMP 97.7; O2SAT 95
[2023-10-30] MEDS ORDERED: BISACODYL 10MG SUPP PR PRN (06:50)
[2023-10-30 13:13] LABS: HEMATOCRIT 30.6 % (36.0-47.0); HEMOGLOBIN 10.4 g/dl (12.0-15.5); MEAN CORPUSCULAR HEMOGLOBIN 28.3 pg (27.0-33.0); MEAN CORPUSCULAR VOLUME 83.4 fl (80.0-96.0); PLATELET COUNT, AUTOMATED 443 10^3/uL (150-450); RED BLOOD COUNT 3.67 10^6/uL (4.00-5.40); WHITE BLOOD COUNT 6.3 10^3/uL (4.0-10.0)
[2023-10-30 13:26] LABS: BASOPHILS 2 % (0-1); EOSINOPHILS 5 % (0-3); LYMPHOCYTES 39 % (16-44); MONOCYTES 5 % (0-5); NEUTROPHILS 48 % (28-66); PLATELET ESTIMATE NORMAL (NORMAL)
[2023-10-30 13:36] LABS: BLOOD UREA NITROGEN 17 MG/DL (9-23); CARBON DIOXIDE LEVEL 28 MMOL/L (20-31); CHLORIDE LEVEL 102 MMOL/L (98-107); CREATININE FOR GFR 0.53 MG/DL (0.55-1.30); GLOMERULAR FILTRATION RATE > 60.0 (>58); GLUCOSE, FASTING 96 MG/DL (60-100); MAGNESIUM LEVEL 1.7 MG/DL (1.8-2.4); POTASSIUM SERUM 4.5 MMOL/L (3.5-5.1); SODIUM LEVEL 135 MMOL/L (136-145)
[2023-10-30 20:00] VITALS: BP 108/78; TEMP 97.7; O2SAT 96
[2023-10-31 04:00] VITALS: BP 104/70; TEMP 97.9; O2SAT 99
[2023-10-31 12:14] VITALS: BP 109/73; TEMP 97.5; O2SAT 98
[2023-10-31 16:14] LABS: BASO # 0.1 10^3/uL (0.0-0.2); BASO % 1.7 % (0.0-1.0); EOS # 0.4 10^3/uL (0.0-0.5); EOS % 4.6 % (0.0-3.0); HEMATOCRIT 32.7 % (36.0-47.0); HEMOGLOBIN 10.8 g/dl (12.0-15.5); LYMPH # 3.6 10^3/uL (1.5-5.0); LYMPH % 44.6 % (24.0-44.0); MEAN CORPUSCULAR HEMOGLOBIN 27.8 pg (27.0-33.0); MEAN CORPUSCULAR VOLUME 84.1 fl (80.0-96.0); MONO # 0.4 10^3/uL (0.0-0.8); MONO % 5.2 % (2.0-8.0); NEUTROPHILS # 3.5 10^3/uL (1.5-8.5); NEUTROPHILS % 43.2 % (36.0-66.0); PLATELET COUNT, AUTOMATED 472 10^3/uL (150-450); RED BLOOD COUNT 3.89 10^6/uL (4.00-5.40); WHITE BLOOD COUNT 8.1 10^3/uL (4.0-10.0)
[2023-10-31 16:31] LABS: BLOOD UREA NITROGEN 13 MG/DL (9-23); CALCIUM LEVEL 9.4 MG/DL (8.5-10.1); CARBON DIOXIDE LEVEL 25 MMOL/L (20-31); CHLORIDE LEVEL 102 MMOL/L (98-107); CREATININE FOR GFR 0.52 MG/DL (0.55-1.30); GLOMERULAR FILTRATION RATE > 60.0 (>58); GLUCOSE, FASTING 116 MG/DL (60-100); MAGNESIUM LEVEL 1.6 MG/DL (1.8-2.4); POTASSIUM SERUM 4.1 MMOL/L (3.5-5.1); SODIUM LEVEL 136 MMOL/L (136-145)
[2023-10-31 20:00] VITALS: BP 106/72; TEMP 97.9; O2SAT 97
[2023-11-01 05:19] VITALS: BP 109/73; TEMP 97.5; O2SAT 98
[2023-11-01 11:55] VITALS: BP 122/84; TEMP 97.9; O2SAT 98
[2023-11-01 18:50] LABS: BASO # 0.1 10^3/uL (0.0-0.2); BASO % 1.5 % (0.0-1.0); EOS # 0.4 10^3/uL (0.0-0.5); HEMATOCRIT 32.2 % (36.0-47.0); HEMOGLOBIN 10.9 g/dl (12.0-15.5); LYMPH # 3.7 10^3/uL (1.5-5.0); LYMPH % 43.3 % (24.0-44.0); MEAN CORPUSCULAR HEMOGLOBIN 28.6 pg (27.0-33.0); MEAN CORPUSCULAR HGB CONC 33.9 g/dl (32.0-36.5); MEAN CORPUSCULAR VOLUME 84.5 fl (80.0-96.0); MONO # 0.6 10^3/uL (0.0-0.8); MONO % 6.8 % (2.0-8.0); NEUTROPHILS # 3.7 10^3/uL (1.5-8.5); NEUTROPHILS % 42.6 % (36.0-66.0); PLATELET COUNT, AUTOMATED 439 10^3/uL (150-450); RED BLOOD COUNT 3.81 10^6/uL (4.00-5.40); WHITE BLOOD COUNT 8.6 10^3/uL (4.0-10.0)
[2023-11-01 19:06] LABS: BLOOD UREA NITROGEN 16 MG/DL (9-23); CALCIUM LEVEL 9.1 MG/DL (8.5-10.1); CARBON DIOXIDE LEVEL 26 MMOL/L (20-31); CHLORIDE LEVEL 101 MMOL/L (98-107); CREATININE FOR GFR 0.51 MG/DL (0.55-1.30); GLOMERULAR FILTRATION RATE > 60.0 (>58); GLUCOSE, FASTING 96 MG/DL (60-100); MAGNESIUM LEVEL 1.6 MG/DL (1.8-2.4); POTASSIUM SERUM 4.5 MMOL/L (3.5-5.1); SODIUM LEVEL 135 MMOL/L (136-145)
[2023-11-01 20:00] VITALS: BP 109/72; TEMP 97.8; O2SAT 97
[2023-11-02 05:18] VITALS: BP 115/73; TEMP 97.5; O2SAT 97
[2023-11-02] MEDS: diphenhydrAMINE CREAM 30GM TOP PRN (09:08)
[2023-11-02] MEDS ORDERED: PERCOCET 5MG/325MG TAB PO PRN (10:00)
[2023-11-02] MEDS ORDERED: MOM 30ML SUSPENSION UDC PO PRN (10:05)
[2023-11-02] MEDS: MIRALAX *UNIT DOSE* 17GM PACKET PO PRN (10:19)
[2023-11-02] MEDS: MAG SULF 1GM/100ML (MAG RUN) 1 GM in IV 1 EA IV SCH ×2 (11:00→15:15)
[2023-11-02 12:00] VITALS: BP 117/76; TEMP 97.7; O2SAT 99
[2023-11-02] MEDS: GABAPENTIN 300 MG CAP PO SCH (13:21)
[2023-11-02] MEDS: PERCOCET 5MG/325MG TAB PO PRN (14:15)
[2023-11-02 14:40] LABS: BASO # 0.1 10^3/uL (0.0-0.2); BASO % 1.4 % (0.0-1.0); EOS # 0.5 10^3/uL (0.0-0.5); EOS % 5.3 % (0.0-3.0); HEMATOCRIT 31.8 % (36.0-47.0); HEMOGLOBIN 10.5 g/dl (12.0-15.5); LYMPH % 46.8 % (24.0-44.0); MEAN CORPUSCULAR HEMOGLOBIN 28.5 pg (27.0-33.0); MEAN CORPUSCULAR VOLUME 86.4 fl (80.0-96.0); MONO # 0.6 10^3/uL (0.0-0.8); MONO % 6.6 % (2.0-8.0); NEUTROPHILS # 3.3 10^3/uL (1.5-8.5); NEUTROPHILS % 39.1 % (36.0-66.0); PLATELET COUNT, AUTOMATED 395 10^3/uL (150-450); RED BLOOD COUNT 3.68 10^6/uL (4.00-5.40); WHITE BLOOD COUNT 8.5 10^3/uL (4.0-10.0)
[2023-11-02 14:54] LABS: BLOOD UREA NITROGEN 13 MG/DL (9-23); CALCIUM LEVEL 8.9 MG/DL (8.5-10.1); CARBON DIOXIDE LEVEL 25 MMOL/L (20-31); CHLORIDE LEVEL 102 MMOL/L (98-107); CREATININE FOR GFR 0.53 MG/DL (0.55-1.30); GLOMERULAR FILTRATION RATE > 60.0 (>58); GLUCOSE, FASTING 136 MG/DL (60-100); MAGNESIUM LEVEL 1.6 MG/DL (1.8-2.4); POTASSIUM SERUM 4.1 MMOL/L (3.5-5.1); SODIUM LEVEL 136 MMOL/L (136-145)
[2023-11-02 20:00] VITALS: BP 116/75; TEMP 98.1; O2SAT 100
[2023-11-03 04:00] VITALS: BP 117/77; TEMP 97.5; O2SAT 98
[2023-11-03 12:20] VITALS: BP 121/79; TEMP 97.9; O2SAT 100
[2023-11-03 15:17] LABS: BASO # 0.2 10^3/uL (0.0-0.2); BASO % 1.8 % (0.0-1.0); EOS # 0.4 10^3/uL (0.0-0.5); EOS % 4.4 % (0.0-3.0); HEMATOCRIT 31.4 % (36.0-47.0); HEMOGLOBIN 10.5 g/dl (12.0-15.5); LYMPH # 3.8 10^3/uL (1.5-5.0); LYMPH % 45.2 % (24.0-44.0); MEAN CORPUSCULAR HEMOGLOBIN 28.6 pg (27.0-33.0); MEAN CORPUSCULAR HGB CONC 33.4 g/dl (32.0-36.5); MEAN CORPUSCULAR VOLUME 85.6 fl (80.0-96.0); MONO # 0.6 10^3/uL (0.0-0.8); MONO % 6.7 % (2.0-8.0); NEUTROPHILS # 3.5 10^3/uL (1.5-8.5); PLATELET COUNT, AUTOMATED 407 10^3/uL (150-450); RED BLOOD COUNT 3.67 10^6/uL (4.00-5.40); WHITE BLOOD COUNT 8.5 10^3/uL (4.0-10.0)
[2023-11-03 15:48] LABS: BLOOD UREA NITROGEN 10 MG/DL (9-23); CARBON DIOXIDE LEVEL 24 MMOL/L (20-31); CHLORIDE LEVEL 102 MMOL/L (98-107); CREATININE FOR GFR 0.49 MG/DL (0.55-1.30); GLOMERULAR FILTRATION RATE > 60.0 (>58); GLUCOSE, FASTING 99 MG/DL (60-100); MAGNESIUM LEVEL 1.5 MG/DL (1.8-2.4); POTASSIUM SERUM 3.9 MMOL/L (3.5-5.1); SODIUM LEVEL 136 MMOL/L (136-145)
[2023-11-03 19:52] VITALS: BP 119/79; TEMP 97.7; O2SAT 98
[2023-11-04 04:02] VITALS: BP 146/95; TEMP 97.9; O2SAT 99
[2023-11-04 12:00] VITALS: BP 116/82; TEMP 97.1; O2SAT 100
[2023-11-04] MEDS: diphenhydrAMINE 50MG/ML VIAL IV PRN (16:19)
[2023-11-04 20:00] VITALS: BP 130/87; TEMP 98.1; O2SAT 97
[2023-11-05 07:24] LABS: BASO # 0.1 10^3/uL (0.0-0.2); BASO % 1.6 % (0.0-1.0); EOS # 0.5 10^3/uL (0.0-0.5); EOS % 5.5 % (0.0-3.0); HEMATOCRIT 32.1 % (36.0-47.0); LYMPH # 3.4 10^3/uL (1.5-5.0); LYMPH % 38.2 % (24.0-44.0); MEAN CORPUSCULAR HEMOGLOBIN 28.9 pg (27.0-33.0); MEAN CORPUSCULAR HGB CONC 34.3 g/dl (32.0-36.5); MEAN CORPUSCULAR VOLUME 84.3 fl (80.0-96.0); MONO # 0.6 10^3/uL (0.0-0.8); MONO % 6.7 % (2.0-8.0); NEUTROPHILS # 4.2 10^3/uL (1.5-8.5); NEUTROPHILS % 47.1 % (36.0-66.0); PLATELET COUNT, AUTOMATED 363 10^3/uL (150-450); RED BLOOD COUNT 3.81 10^6/uL (4.00-5.40); WHITE BLOOD COUNT 8.8 10^3/uL (4.0-10.0)
[2023-11-05 07:56] LABS: BLOOD UREA NITROGEN 12 MG/DL (9-23); CALCIUM LEVEL 9.5 MG/DL (8.5-10.1); CARBON DIOXIDE LEVEL 27 MMOL/L (20-31); CHLORIDE LEVEL 103 MMOL/L (98-107); CREATININE FOR GFR 0.51 MG/DL (0.55-1.30); GLOMERULAR FILTRATION RATE > 60.0 (>58); GLUCOSE, FASTING 82 MG/DL (60-100); MAGNESIUM LEVEL 1.8 MG/DL (1.8-2.4); POTASSIUM SERUM 5.2 MMOL/L (3.5-5.1); SODIUM LEVEL 136 MMOL/L (136-145)
[2023-11-05] MEDS: LORazepam 0.5 MG TAB PO PRN (11:32)
[2023-11-05 11:57] VITALS: BP 129/82; TEMP 98.4; O2SAT 99
== END 2023-11-05 21:20 | disposition left against medical advice (07) | DRG 193 ==
LOC: M ED 11:20 → EEVIPCON 19:43 → M ED INP 19:43 → M PCU 22:54 → M MS5PR 10-20 22:08
PROVIDERS: ADMIT Preventive Medicine Undersea and Hyperbaric Medicine; ATTEND Hospitalist
PROC: 02HV33Z Insertion of Infusion Device into Superior Vena Cava, Percutaneous Approach (ICD-10-PCS; principal; 2023-10-20 10:30)
PROC: B246ZZZ Ultrasonography of Right and Left Heart (ICD-10-PCS; 2023-10-24)
DX: I33.0 Acute and subacute infective endocarditis (principal); I26.90 Septic pulmonary embolism without acute cor pulmonale; E46 Unspecified protein-calorie malnutrition; E83.42 Hypomagnesemia; B96.20 Unspecified Escherichia coli [E. coli] as the cause of diseases classified elsewhere; Z85.41 Personal history of malignant neoplasm of cervix uteri; F43.10 Post-traumatic stress disorder, unspecified; F41.9 Anxiety disorder, unspecified; F32.A Depression, unspecified; Z90.79 Acquired absence of other genital organ(s); F17.200 Nicotine dependence, unspecified, uncomplicated; Z88.8 Allergy status to other drugs, medicaments and biological substances; N39.0 Urinary tract infection, site not specified; K59.00 Constipation, unspecified; M54.9 Dorsalgia, unspecified; G89.29 Other chronic pain; Z59.00 Homelessness unspecified; D64.9 Anemia, unspecified; G47.00 Insomnia, unspecified; B95.62 Methicillin resistant Staphylococcus aureus infection as the cause of diseases classified elsewhere; I08.1 Rheumatic disorders of both mitral and tricuspid valves

== ENCOUNTER 2023-11-08 23:31 | Inpatient (IN) | payer MEDICAID ==
[~2023-11-08] VITALS: Ht 170.2 cm; Wt 60.9 kg
[~2023-11-08 23:31] MED LIST changes: +VITA200028 PO; +med rec
[2023-11-08] MEDS: LORazepam 2 MG/ML 1ML VIAL IV STA (23:53)
[2023-11-09] MEDS: NS 1,000 ML IV ONE (00:10)
[2023-11-09 00:17] LABS: HEMATOCRIT 33.5 % (36.0-47.0); HEMOGLOBIN 10.9 g/dl (12.0-15.5); MEAN CORPUSCULAR HGB CONC 32.5 g/dl (32.0-36.5); MEAN CORPUSCULAR VOLUME 89.1 fl (80.0-96.0); PLATELET COUNT, AUTOMATED 535 10^3/uL (150-450); RED BLOOD COUNT 3.76 10^6/uL (4.00-5.40); WHITE BLOOD COUNT 20.2 10^3/uL (4.0-10.0)
[2023-11-09 00:32] LABS: CK-MB VALUE MASS 1.3 NG/ML (<3.6)
[2023-11-09 00:49] LABS: CK-MB VALUE MASS 1.1 NG/ML (<3.6); ETHYL ALCOHOL (ETHANOL) 0.036 % (0.000-0.010)
[2023-11-09 00:51] LABS: ALBUMIN 3.2 G/DL (3.2-5.2); ALKALINE PHOSPHATASE 153 U/L (46-116); ALT/SGPT 32 U/L (7.0-40); AST/SGOT 57 U/L (<34); BILIRUBIN,DIRECT 0.1 MG/DL (<0.4); BILIRUBIN,TOTAL 0.5 MG/DL (0.3-1.2); BLOOD UREA NITROGEN 13 MG/DL (9-23); CALCIUM LEVEL 9.1 MG/DL (8.5-10.1); CARBON DIOXIDE LEVEL 16 MMOL/L (20-31); CHLORIDE LEVEL 100 MMOL/L (98-107); CREATININE FOR GFR 0.84 MG/DL (0.55-1.30); GLOMERULAR FILTRATION RATE > 60.0 (>58); GLUCOSE, FASTING 98 MG/DL (60-100); POTASSIUM SERUM 4.5 MMOL/L (3.5-5.1); SALICYLATE LEVEL < 3.0 MG/DL (<30); SODIUM LEVEL 136 MMOL/L (136-145); TOTAL PROTEIN 8.9 G/DL (5.7-8.2)
[2023-11-09 00:53] LABS: THYROID STIMULATING HORMONE 5.986 uIU/ML (0.55-4.78)
[2023-11-09] MEDS: LORazepam 2 MG/ML 1ML VIAL IV STA ×3 (00:57→05:22)
[2023-11-09 01:10] LABS: CPK CREATINE PHOSPHOKINASE 98 U/L (34-145); MB/CK RELATIVE INDEX 1.12 (< OR =4)
[2023-11-09 01:12] LABS: MB/CK RELATIVE INDEX 1.44 (< OR =4)
[2023-11-09 01:17] LABS: ATYPICAL LYMPH 6 % (0-5); BASOPHILS 1 % (0-1); EOSINOPHILS 2 % (0-3); LYMPHOCYTES 44 % (16-44); MONOCYTES 5 % (0-5); NEUTROPHILS 42 % (28-66)
[2023-11-09 01:18] LABS: PLATELET ESTIMATE INCREASED (NORMAL)
[2023-11-09] MEDS: NS 2,140 ML in IV 1 EA IV ONE (02:25)
[2023-11-09 05:52] LABS: BARBITURATES URINE NEGATIVE (NEGATIVE); BENZODIAZEPINES URINE NEGATIVE (NEGATIVE); COCAINE METABOLITE URINE NEGATIVE (NEGATIVE)
[2023-11-09 05:53] LABS: METHADONE URINE NEGATIVE (NEGATIVE); OPIATES URINE NEGATIVE (NEGATIVE); PHENCYCLIDINE URINE NEGATIVE (NEGATIVE)
[2023-11-09 06:08] LABS: AMPHETAMINES LEVEL URINE POSITIVE (NEGATIVE); CANNABINOIDS URINE POSITIVE (NEGATIVE)
[2023-11-09 07:56] LABS: PROCALCITONIN 0.1 ng/ml
[2023-11-09] MEDS ORDERED: HOME MED LIST COMPLETE! XX SCH (09:40)
[2023-11-09] MEDS: ceFAZolin SOD 2 GM in IV 1 EA IV ONE (09:54)
[2023-11-09] MEDS ORDERED: ceFAZolin SOD 1 GM in D5W MINI-BAG PLUS 50 ML IV SCH (10:40)
[2023-11-09] MEDS ORDERED: LORazepam 2 MG TAB PO PRN (10:50)
[2023-11-09 11:27] LABS: BASO # 0.1 10^3/uL (0.0-0.2); BASO % 0.8 % (0.0-1.0); EOS # 0.2 10^3/uL (0.0-0.5); EOS % 1.8 % (0.0-3.0); HEMATOCRIT 25.7 % (36.0-47.0); LYMPH # 2.5 10^3/uL (1.5-5.0); LYMPH % 30.5 % (24.0-44.0); MEAN CORPUSCULAR HEMOGLOBIN 28.3 pg (27.0-33.0); MEAN CORPUSCULAR HGB CONC 33.5 g/dl (32.0-36.5); MEAN CORPUSCULAR VOLUME 84.5 fl (80.0-96.0); MONO # 0.6 10^3/uL (0.0-0.8); MONO % 6.9 % (2.0-8.0); NEUTROPHILS # 4.9 10^3/uL (1.5-8.5); NEUTROPHILS % 59.6 % (36.0-66.0); RED BLOOD COUNT 3.04 10^6/uL (4.00-5.40); WHITE BLOOD COUNT 8.3 10^3/uL (4.0-10.0)
[2023-11-09 11:45] LABS: HEMOGLOBIN 8.6 g/dl (12.0-15.5); PLATELET COUNT, AUTOMATED 305 10^3/uL (150-450)
[2023-11-09 11:58] LABS: FREE T4 1.11 NG/DL (0.89-1.76)
[2023-11-09 12:04] LABS: ALBUMIN 2.6 G/DL (3.2-5.2); ALKALINE PHOSPHATASE 120 U/L (46-116); ALT/SGPT 25 U/L (7.0-40); AST/SGOT 35 U/L (<34); BILIRUBIN,TOTAL 0.4 MG/DL (0.3-1.2); BLOOD UREA NITROGEN 16 MG/DL (9-23); CALCIUM LEVEL 8.1 MG/DL (8.5-10.1); CARBON DIOXIDE LEVEL 20 MMOL/L (20-31); CHLORIDE LEVEL 107 MMOL/L (98-107); GLOMERULAR FILTRATION RATE > 60.0 (>58); GLUCOSE, FASTING 67 MG/DL (60-100); POTASSIUM SERUM 4.1 MMOL/L (3.5-5.1); SODIUM LEVEL 137 MMOL/L (136-145); TOTAL PROTEIN 7.1 G/DL (5.7-8.2)
[2023-11-09] MEDS: THIAMINE 100 MG TAB PO SCH (13:40)
[2023-11-09] MEDS: FOLIC ACID 1MG TAB PO SCH (13:41)
[2023-11-09] MEDS: MULTIVITAMINS/MINERALS THERAP 1 TAB PO SCH (13:41)
[2023-11-09] MEDS: LR 1,000 ML IV SCH (13:49)
[2023-11-09] MEDS: ACETAMINOPHEN TAB 650MG DOSE (2X325MG) PO PRN (13:54)
[2023-11-09 15:05] VITALS: BP 122/69; TEMP 97.1; O2SAT 100
[2023-11-09 16:00] VITALS: BP 121/60; TEMP 97.2; O2SAT 99
[2023-11-09] MEDS: GABAPENTIN 300 MG CAP PO SCH (17:24)
[2023-11-09] MEDS: LORazepam 0.5 MG TAB PO PRN (17:25)
[2023-11-09] MEDS: MORPHINE 2 MG/ML 1ML VIAL IV PRN (17:27)
[2023-11-09 19:43] VITALS: BP 129/67; TEMP 97.3; O2SAT 97
[2023-11-09 20:00] VITALS: BP 129/67; TEMP 97.3; O2SAT 97
[2023-11-09] MEDS: NICOTINE 21MG/24HR 1 EA TRANSDERMAL TD SCH (20:35)
[2023-11-09] MEDS: ceFAZolin SOD 2 GM in D5W MINI-BAG PLUS 50 ML IV SCH (20:35)
[2023-11-09] MEDS: ENOXAPARIN 40MG/0.4ML SYRINGE (J1650 PER 10MG) SC SCH (20:35)
[2023-11-09] MEDS: diphenhydrAMINE 25MG CAP PO PRN (20:36)
[2023-11-09] MEDS: PERCOCET 5MG/325MG TAB PO PRN (20:36)
[2023-11-09 23:40] VITALS: BP 139/83; TEMP 97.2; O2SAT 98
[2023-11-10 04:29] VITALS: BP 114/76; TEMP 97.7; O2SAT 97
[2023-11-10 05:50] LABS: BASO # 0.1 10^3/uL (0.0-0.2); BASO % 1.5 % (0.0-1.0); EOS # 0.2 10^3/uL (0.0-0.5); EOS % 4.3 % (0.0-3.0); HEMATOCRIT 28.3 % (36.0-47.0); HEMOGLOBIN 9.6 g/dl (12.0-15.5); LYMPH # 2.2 10^3/uL (1.5-5.0); LYMPH % 41.2 % (24.0-44.0); MEAN CORPUSCULAR HGB CONC 33.9 g/dl (32.0-36.5); MEAN CORPUSCULAR VOLUME 85.5 fl (80.0-96.0); MONO # 0.4 10^3/uL (0.0-0.8); MONO % 7.6 % (2.0-8.0); NEUTROPHILS # 2.4 10^3/uL (1.5-8.5); PLATELET COUNT, AUTOMATED 320 10^3/uL (150-450); RED BLOOD COUNT 3.31 10^6/uL (4.00-5.40); WHITE BLOOD COUNT 5.4 10^3/uL (4.0-10.0)
[2023-11-10 06:11] LABS: ALBUMIN 2.6 G/DL (3.2-5.2); ALKALINE PHOSPHATASE 120 U/L (46-116); ALT/SGPT 20 U/L (7.0-40); AST/SGOT 33 U/L (<34); BILIRUBIN,TOTAL 0.2 MG/DL (0.3-1.2); BLOOD UREA NITROGEN 8 MG/DL (9-23); CALCIUM LEVEL 8.3 MG/DL (8.5-10.1); CARBON DIOXIDE LEVEL 23 MMOL/L (20-31); CHLORIDE LEVEL 111 MMOL/L (98-107); CREATININE FOR GFR 0.57 MG/DL (0.55-1.30); GLOMERULAR FILTRATION RATE > 60.0 (>58); GLUCOSE, FASTING 98 MG/DL (60-100); MAGNESIUM LEVEL 1.4 MG/DL (1.8-2.4); POTASSIUM SERUM 3.7 MMOL/L (3.5-5.1); SODIUM LEVEL 142 MMOL/L (136-145); TOTAL PROTEIN 7.4 G/DL (5.7-8.2)
[2023-11-10 07:46] VITALS: BP 139/86; TEMP 97.8; O2SAT 97
[2023-11-10] MEDS: MAG SULF 1GM/100ML (MAG RUN) 1 GM in IV 1 EA IV SCH (08:00)
[2023-11-10] MEDS ORDERED: LORazepam 2 MG/ML 1ML VIAL IV ONE (09:00)
[2023-11-10] MEDS: LORazepam 2 MG/ML 1ML VIAL IV STA (11:32)
[2023-11-10 12:00] VITALS: BP 140/84; TEMP 97.6; O2SAT 96
[2023-11-10] MEDS: tiZANidine 4 MG TAB PO PRN (15:35)
[2023-11-10] MEDS: MAG SULF 1GM/100ML (MAG RUN) 1 GM in IV 1 EA IV ONE (15:41)
[2023-11-10] MEDS: GABAPENTIN 300 MG CAP PO ONE (15:42)
[2023-11-10] MEDS ORDERED: GABAPENTIN 300 MG CAP PO SCH (16:00)
[2023-11-10 19:29] VITALS: BP 134/87; TEMP 98.3; O2SAT 97
[2023-11-10] MEDS: GABAPENTIN 300 MG CAP PO SCH (20:01)
[2023-11-10] MEDS ORDERED: TERAZOSIN 1 MG CAP PO SCH (21:30)
[2023-11-10] MEDS: traZODone 50 MG TAB PO PRN (22:38)
[2023-11-10] MEDS: PRAZOSIN 1 MG CAP PO SCH (22:42)
[2023-11-11 00:06] VITALS: BP 127/71; TEMP 97.9; O2SAT 97
[2023-11-11 03:11] VITALS: BP 120/75; TEMP 97.4; O2SAT 97
[2023-11-11 05:33] LABS: HEMATOCRIT 27.8 % (36.0-47.0); MEAN CORPUSCULAR HEMOGLOBIN 28.2 pg (27.0-33.0); MEAN CORPUSCULAR HGB CONC 32.4 g/dl (32.0-36.5); MEAN CORPUSCULAR VOLUME 87.1 fl (80.0-96.0); PLATELET COUNT, AUTOMATED 327 10^3/uL (150-450); RED BLOOD COUNT 3.19 10^6/uL (4.00-5.40); WHITE BLOOD COUNT 5.8 10^3/uL (4.0-10.0)
[2023-11-11 05:53] LABS: BLOOD UREA NITROGEN 12 MG/DL (9-23); CALCIUM LEVEL 8.3 MG/DL (8.5-10.1); CARBON DIOXIDE LEVEL 24 MMOL/L (20-31); CHLORIDE LEVEL 111 MMOL/L (98-107); CREATININE FOR GFR 0.52 MG/DL (0.55-1.30); GLOMERULAR FILTRATION RATE > 60.0 (>58); GLUCOSE, FASTING 110 MG/DL (60-100); MAGNESIUM LEVEL 1.4 MG/DL (1.8-2.4); SODIUM LEVEL 142 MMOL/L (136-145)
[2023-11-11 06:12] LABS: ATYPICAL LYMPH 3 % (0-5); BASOPHILS 2 % (0-1); EOSINOPHILS 5 % (0-3); LYMPHOCYTES 48 % (16-44); MONOCYTES 2 % (0-5); NEUTROPHILS 40 % (28-66)
[2023-11-11 06:13] LABS: ANISOCYTOSIS 1+; PLATELET ESTIMATE NORMAL (NORMAL)
[2023-11-11] MEDS ORDERED: HOME MED LIST COMPLETE! XX SCH (06:30)
[2023-11-11 07:55] VITALS: BP 115/68; TEMP 97.9; O2SAT 99
[2023-11-11] MEDS: MAG SULF 1GM/100ML (MAG RUN) 1 GM in IV 1 EA IV SCH (08:36)
[2023-11-11] MEDS: diazePAM 10MG/2ML SYRINGE IV PRN (09:33)
[2023-11-11] MEDS: DULoxetine 30MG CAPSULE (CYMBALTA) PO SCH (09:34)
[2023-11-11] MEDS: LORazepam 2 MG/ML 1ML VIAL IV PRN (09:35)
[2023-11-11] MEDS ORDERED: PROHANCE 279.3MG/ML 15ML VIAL As Ordered ONE (10:17)
[2023-11-11 11:47] VITALS: BP 150/94; TEMP 98.1; O2SAT 98
[2023-11-11] MEDS ORDERED: TRAZ-252 PO (12:09)
[2023-11-11] MEDS ORDERED: DULO1CAP6 PO (12:09)
[2023-11-11] MEDS ORDERED: PRAZ1CAP PO (12:09)
[2023-11-11] MEDS ORDERED: DALV1SOL IV ×2 (12:09→12:50)
[2023-11-11] MEDS ORDERED: GABA600T4 PO (12:09)
[2023-11-11] MEDS: FOSFOMYCIN TROMETHAMINE 3 GM POWDER PACKET (MONUROL) PO STA (12:18)
[2023-11-11] MEDS ORDERED: MAGN400T2 PO (12:50)
[2023-11-13 05:22] LABS: HEPATITIS B SURF AB QUANT 81 mIU/mL (> OR = 10)
[2023-11-13 06:52] LABS: HEPATITIS A IgG TOTAL REACTIVE (NON-REACTIVE); HEPATITIS B CORE ANTIBODY IGG NON-REACTIVE (NON-REACTIVE)
== END 2023-11-11 14:06 | disposition home or self-care (01) | DRG 720 ==
LOC: M ED 23:31 → M ED INP 11-09 10:38 → M PCU 11-09 14:08
PROVIDERS: ADMIT Internal Medicine; ATTEND Internal Medicine
DX: A41.9 Sepsis, unspecified organism (principal); I33.0 Acute and subacute infective endocarditis; G93.41 Metabolic encephalopathy; I76 Septic arterial embolism; E72.20 Disorder of urea cycle metabolism, unspecified; G92.8 Other toxic encephalopathy; K21.9 Gastro-esophageal reflux disease without esophagitis; J45.909 Unspecified asthma, uncomplicated; B96.20 Unspecified Escherichia coli [E. coli] as the cause of diseases classified elsewhere; F43.10 Post-traumatic stress disorder, unspecified; F60.3 Borderline personality disorder; F41.9 Anxiety disorder, unspecified; F32.A Depression, unspecified; F17.200 Nicotine dependence, unspecified, uncomplicated; Z90.79 Acquired absence of other genital organ(s); Z85.41 Personal history of malignant neoplasm of cervix uteri; Z88.8 Allergy status to other drugs, medicaments and biological substances; Z92.21 Personal history of antineoplastic chemotherapy; M46.42 Discitis, unspecified, cervical region; M79.2 Neuralgia and neuritis, unspecified; Z59.00 Homelessness unspecified

== ENCOUNTER 2023-11-11 14:13 | Outpatient (CLI) | payer MEDICAID ==
[~2023-11-11 14:13] MED LIST changes: +DALV1SOL IV; +DULO1CAP6 PO; +GABA-1490 PO; +GABA-1635 PO; -GABA800T4 PO; +MAGN400T2 PO
[2023-11-11] MEDS: DALBAVANCIN 1,500 MG in D5W 250 ML IV ONE (15:18)
== END 2023-11-11 16:00 | disposition left against medical advice (07) ==
LOC: M OPCLI3 14:13 → M PCU 14:13 → M OPCLI3 16:00
PROVIDERS: ATTEND Internal Medicine
DX: B95.61 Methicillin susceptible Staphylococcus aureus infection as the cause of diseases classified elsewhere (principal)
CPT/HCPCS: 96365; J0875